=== PATIENT | female | born 1960 | race Caucasian/White ===

== ENCOUNTER 2020-06-17 14:47 | Inpatient (IN) | payer OTHER, SELFPAY ==
[2020-06-17 14:54] VITALS: BP 101/64; PULSE 63; RESP 18; TEMP 36.6; O2SAT 98; BMI 34.4
[2020-06-17 19:35] VITALS: O2SAT 95
[2020-06-17 21:27] VITALS: BP 132/76; PULSE 65
[2020-06-17] MEDS: Atorvastatin Calcium 40 MG Tablet PO (21:27)
[2020-06-17] MEDS: hydrALAZINE 10 MG Tablet PO (21:27)
[2020-06-17 22:30] VITALS: BP 132/76; PULSE 65; RESP 18; TEMP 36.6; O2SAT 97
[2020-06-18 06:24] VITALS: BP 131/75; PULSE 66
[2020-06-18] MEDS: hydrALAZINE 10 MG Tablet PO (06:24)
[2020-06-18] MEDS: Levothyroxine 112 MCG Tablet PO (06:24)
[2020-06-18] MEDS: Enoxaparin 40 MG/0.4 ML Syringe SC (06:24)
[2020-06-18 06:26] LABS: Hemoglobin 12.6 g/dL (12.0-15.0); Mean Corp Hgb Conc 32.3 g/dL (32-36); Mean Corpuscular Hgb 30.6 pg (27.0-32.0); Mean Corpuscular Volume 94.7 fL (81-99); Mean Platelet Vol. 11.5 fl (6.2-12.0); Platelet Count 216 K/mm3 (150-450); RBC Distribution Width SD 45.1 fl (35.1-43.9); Red Blood Count 4.12 M/mm3 (4.2-5.4); White Blood Count 8.5 K/mm3 (4.4-11.0)
[2020-06-18 07:04] LABS: AST(SGOT) 17 U/L (15-37); Alanine Aminotransfer ALT/SGPT 36 U/L (13-56); Albumin, Serum 3.3 g/dL (3.2-5.0); Alkaline Phosphatase 148 U/L (45-117); Anion Gap 6 (5-15); BUN 32 mg/dL (7-18); BUN/Creat Ratio 31.7 RATIO (10-20); Calcium,Total 9.1 mg/dL (8.5-10.1); Chloride 106 mmol/L (98-107); Creatinine, Serum 1.01 mg/dL (0.55-1.02); EST Glomerular Filtration Rate 59 mL/min (>60); Est Glom Filt Rate - Afr Amer 72 mL/min (>60); Globulin 3.3 g/dL (2.2-4.2); Glucose 85 mg/dL (74-106); Magnesium 1.7 mg/dL (1.6-2.6); Phosphorus 3.8 mg/dL (2.5-4.9); Potassium 3.2 mmol/L (3.5-5.1); Protein, Total 6.6 g/dL (6.4-8.2); Sodium Level 140 mmol/L (136-145)
[2020-06-18 07:38] VITALS: BP 131/75; PULSE 66; RESP 20; TEMP 36.7; O2SAT 96
[2020-06-18 07:45] VITALS: PULSE 70
[2020-06-18] MEDS: Metoprolol(XL)Succ 50 MG Tablet PO (07:45)
[2020-06-18] MEDS: amLODIPine 10 MG Tablet PO (07:45)
[2020-06-18] MEDS: Clopidogrel Bisulfate 75 MG Tablet PO (07:45)
[2020-06-18] MEDS: Aspirin 81 MG TAB.CHEW PO (07:45)
[2020-06-18] MEDS: Losartan Potassium 100 MG Tablet PO (07:45)
[2020-06-18] MEDS: hydroCHLOROthiazide 25 MG Tablet PO (07:45)
[2020-06-18 08:13] VITALS: O2SAT 96
--- NOTE | 2020-06-18 10:20 | PCM.HP.STD ---
[facility] - General General Date of Admission: 06/17/20 [facility] 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 NIH was 4. CT revealed a subacute lacunar infarct in the right centrum semiovale/periventricular white matter which is thought to be due to uncontrolled HTN. CTA showed moderate degree of calcified stenosis involving the cavernous and proximal supraclinoid portions of each internal carotid artery, greater on the right side. There was a mild degree of irregular narrowing of the M1 segment of the right middle cerebral artery without evidence of acute thromboembolic disease. TSH was 55.39 and the patient stated she had run out of her Synthroid. Transaminases and alkaline phosphatase were mildly elevated. Random blood sugar was increased at 155 but the hemoglobin A1c was 5.3. She had no PCP. She was transferred to [facility] for further care. She was diagnosed with uncontrolled hypertension and hyperlipidemia and was started on appropriate medication. She was also started on ASA and Plavix and will continue dual anti-platelet therapy for 1 month and then ASA alone thereafter. She was transferred to inpt acute rehab at [facility] on 06/17/20 for > 3 hours of therapy daily to restore function at or near her prior level of function. Medications she was supposed to be taking prior to presenting to the ED include Norvasc 10 mg daily, BuSpar 15 mg twice daily, vitamin D 50,000 units weekly, Lexapro 20 mg daily, hydrochlorothiazide 25 mg daily, Synthroid 112 mcg daily, Cozaar 100 mg daily, metoprolol 25 mg 3 times daily and potassium chloride 20 mEq daily. 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 Obesity (BMI 30.0-34.9) OCD (obsessive compulsive disorder) Smoker Home Medications acetaminophen 650 mg PO Q4H PRN 06/17/20 [History Last Taken Unknown] amlodipine 10 mg PO DAILY 06/17/20 [History Last Taken Unknown] aspirin 81 mg PO DAILY 06/17/20 [History Last Taken Unknown] atorvastatin 40 mg PO QHS 06/17/20 [History Last Taken Unknown] clopidogrel [Plavix] 75 mg PO DAILY 06/17/20 [History Last Taken Unknown] hydralazine 10 mg PO TID 06/17/20 [History Last Taken Unknown] hydrochlorothiazide 25 mg PO DAILY 06/17/20 [History Last Taken Unknown] levothyroxine 112 mcg PO DAILY 06/17/20 [History Last Taken Unknown] losartan 100 mg PO DAILY 06/17/20 [History Last Taken Unknown] metoprolol succinate 50 mg PO DAILY 06/17/20 [History Last Taken Unknown] Allergy/AdvReac Type Severity Reaction Status Date / Time No Known Allergies Allergy Verified 06/17/20 17:11 Family History (Updated 06/18/20 @ 13:[address] Leyla Rodriguez DO) Aunt Hypertension Mother Hypertension Sister Thyroid disorder Other Hyperlipidemia Surgical History H/O colonoscopy History of cholecystectomy Social History (Updated 06/18/20 @ 13:[address] Leyla Rodriguez DO) adopted: No household members: spouse housing: house number of children: 4 service: No current occupational status: unemployed current gender identity: female Smoking Status: Current every day smoker Tobacco: How many years used: 10 quit status: considering quitting counseling given: provider counseling alcohol intake: current alcohol intake frequency: 0-2 drinks per day substance use type: does not use ROS Constitutional Constitutional: Reports difficulty sleeping; Denies anorexia, headache(s), lethargy, malaise, poor appetite, snoring or stops breathing during sleep Eyes Eyes: Denies blurry vision or diplopia ENT HEENT: Reports dry mouth; Denies dysphagia, loss taste/smell or sore throat Cardiovascular Cardiovascular: Denies chest pain, chest pain at rest, chest pain with activity, claudication, cold extremities, dyspnea on exertion, edema, orthopnea, orthostatic symptoms, palpitations or pedal edema Respiratory/Chest Respiratory/Chest: Denies cough or shortness of breath with exertion Gastrointestinal Gastrointestinal: Denies chewing difficulty, dysphagia, hematochezia, nausea or vomiting Genitourinary Genitourinary: Reports dribbling; Denies dysuria or urinary hesitancy Musculoskeletal Musculoskeletal: Denies back pain, difficulty walking or extremity pain Integumentary Integumentary: Denies non-healing lesions Neurologic Neurologic: Reports focal weakness, lack of coordination and paresthesias; Denies abnormal speech, behavior changes, confusion, convulsions, disequilibrium, dizziness, frequent falls, headache(s), radicular pain, restless legs, seizure-like activity, seizures or vertigo Psychiatric Psychiatric: Reports anxiety; Denies auditory hallucinations, confusion, hallucinations or suicidal ideation Hematologic/Lymphatic Hematologic/Lymphatic: Denies easy bleeding or easy bruising Allergic/Immunologic Allergic/Immunologic: Denies lip swelling, wheezing or asthma Vital Signs Vital Signs Vital Signs: 06/17/20 14:54 06/17/20 19:35 06/17/20 21:27 Temperature 97.8 F Temperature Source Temporal Pulse Rate 63 65 Pulse Strength Respiratory Rate 18 Respiratory Effort Respiratory Depth Respiratory Pattern Blood Pressure 101/64 132/76 H Blood Pressure Mean 76 Blood Pressure Source Monitor Blood Pressure Position Sitting Blood Pressure Location Right Arm Pulse Ox 98 95 Oxygen Delivery Method Room Air Room Air 06/17/20 22:30 06/18/20 06:24 06/18/20 07:38 Temperature 98 F 98.0 F Temperature Source Temporal Temporal Pulse Rate 65 66 66 Pulse Strength Normal (2+) Respiratory Rate 18 20 H Respiratory Effort Respiratory Depth Respiratory Pattern Blood Pressure 132/76 H 131/75 H 131/75 H Blood Pressure Mean 94 93 Blood Pressure Source Monitor Blood Pressure Position Semi-Fowlers Blood Pressure Location Left Forearm Pulse Ox 97 96 Oxygen Delivery Method Room Air Room Air 06/18/20 07:45 06/18/20 08:13 06/18/20 08:49 Temperature Temperature Source Pulse Rate 70 Pulse Strength Normal (2+) Respiratory Rate Respiratory Effort Normal Non-Labored Respiratory Depth Normal Respiratory Pattern Normal Blood Pressure Blood Pressure Mean Blood Pressure Source Blood Pressure Position Blood Pressure Location Pulse Ox 96 Oxygen Delivery Method Room Air Physical Exam Const alert, oriented x3, no apparent distress, healthy appearing and well nourished General Appearance: cooperative and well developed Orientation / Consciousness: awake, oriented to person, oriented to place and oriented to time Nutritional Appearance: overweight HEENT normocephalic Head and Scalp: atraumatic Mouth: dry mucous membranes Eyes PERRL and EOMs intact bilaterally Visual Field: other Other Details: No visual field cuts Conjunctiva: conjunctiva normal Sclera: sclera normal Neck supple, thyroid normal and no carotid bruits General: trachea midline and other No cervical lymphadenopathy Chest Chest: symmetrical chest wall rise Resp normal respiratory effort, normal air movement and clear to auscultation bilaterally Effort and Inspection: Negative for tachypneic or respiratory distress Cardio regular rate, regular rhythm, S1 normal heart sound, S2 normal heart sound, no murmurs, no rub, no gallops, no clicks and no JVD Peripheral Pulses: pulses 2+ throughout GI normal to inspection, nondistended, normoactive bowel sounds, soft to palpation, non-tender and hepatosplenomegaly no CVA tenderness Extremity normal capillary refill and no clubbing, cyanosis or edema Skin no wounds and no jaundice Skin Narrative: No rashes General Skin Exam: no breakdown Neuro oriented x3 and CN's II-XII intact bilaterally Neuro Narrative: 5/5 strength throughout. She is left-handed. She has decreased fine motor coordination of the left hand. No facial droop. No ataxia. Coordination / Balance: [id number] test normal Speech: speech normal Psych mental status grossly normal, cooperative, affect normal, speech normal and activity/motor behavior normal Appearance: well kempt Attitude: calm Activity / Motor Behavior: appropriate eye contact Thought Process: normal thought process Lab / Micro Data Result Diagrams: 06/18/20 06:22 06/18/20 06:22 Labs: Laboratory Results - last 24 hr 06/18/20 06/18/20 06:22 06:22 WBC 8.5 RBC 4.12 L Hgb 12.6 Hct 39.0 MCV 94.7 MCH 30.6 MCHC 32.3 RDW Std Deviation 45.1 H RDW Coeff of Siri 13.0 Plt Count 216 MPV 11.5 Sodium 140 Potassium 3.2 L Chloride 106 Carbon Dioxide 28.0 Anion Gap 6 BUN 32 H Creatinine 1.01 Estim Creat Clear Calc 49.00 Est GFR (MDRD) Af Amer 72 Est GFR (MDRD) Non-Af 59 L BUN/Creatinine Ratio 31.7 H Glucose 85 Calcium 9.1 Phosphorus 3.8 Magnesium 1.7 Total Bilirubin 0.30 AST 17 ALT 36 Alkaline Phosphatase 148 H Total Protein 6.6 Albumin 3.3 Globulin 3.3 Albumin/Globulin Ratio 1.0 Assessment & Plan Assessment/Plan (1) HLD (hyperlipidemia): Status: Chronic Code(s): E78.5 - Hyperlipidemia, unspecified Plan: Continue statin (2) Left hemiparesis: Status: Acute Code(s): G81.94 - Hemiplegia, unspecified affecting left nondominant side Plan: PT/OT. (3) Non compliance w medication regimen: Status: Acute Code(s): Z91.14 - Patient's other noncompliance with medication regimen Plan: Reinforced the need to be compliant with medication as directed and with physician follow-up. (4) Obesity (BMI 30.0-34.9): Status: Chronic Code(s): E66.9 - Obesity, unspecified Plan: Weight loss advised. (5) Right-sided lacunar infarction: Status: Acute Code(s): I63.81 - Other cerebral infarction due to occlusion or stenosis of small artery Plan: PT/OT/ST evaluations. (6) Abnormal LFTs: Status: Acute Code(s): R94.5 - Abnormal results of liver function studies Plan: Can be followed up as an outpatient if the abnormalities persist. (7) Diuretic-induced hypokalemia: Status: Acute Code(s): E87.6 - Hypokalemia; T50.2X5A - Adverse effect of carbonic-anhydrase inhibitors, benzothiadiazides and other diuretics, initial encounter Plan: Supplement potassium. 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 Recheck TSH, T4 and T3 in 6 weeks. (9) Hypertension: Status: Chronic Code(s): I10 - Essential (primary) hypertension Plan: Discontinue hydrochlorothiazide. Mucous membranes are very dry and she relates to me that she does not drink much because she does not want to have urge urinary incontinence. BUN/creatinine ratio is very elevated at 31.7. (10) Smoker: Status: Acute Code(s): F17.200 - Nicotine dependence, unspecified, uncomplicated Plan: Smoking cessation counseling given. Patient declines a nicotine patch. She tells me that she has quit. She has quit in the past but went back to smoking due to uncontrolled anxiety. Visit Charges Inpatient E&M: 81839 Init Hosp L3
--- NOTE | 2020-06-18 11:07 | PCM.RU.PYE ---
Admission Information Primary Diagnosis:: Debility due to right side lacunar infarct on 06/06/2020 with left hemiparesis. Status Changes from Prescreening?: No changes Identified Actual Problem List:: Depression, Mobility Impaired, Self Care Deficit, Know.Dfct/Disease Process, Know.Dfct of Medicaitons, BP, Hypertension, Fluid Change-Dehydration and Alteration-Leisure Activ. Potential Problem List:: DVT, Bleeding, Infection, UTI, Aspiration, Falls, Skin Integrity and Depression Risk of Complications DVT: LMWH and PHOEBE Hose Bleeding: Monitor Lab Values, Nursing to Teach Precautions for anti-coagulation therapy., Wound, if applicable, to be assessed every shift. and Stroke patients assessed for lethargy or change in status. Infection: Clinical Staff to Monitor for S/S of infection: and S/S of infection include fever, redness, warmth, etc. Urinary Tract Infection: Monitor for frequency, burning, discomfort, or incontinence. and Nursing will obtain urine sample for urinalysis and C&S when ordered. Aspiration: Clinical staff will monitor for coughing, drooling, congestion., Speech will evaluate swallowing and dsyphasia. and Nursing will monitor patient swallowing during meals. Falls: Patient will be evaluated for Fall Precautions and Patient will be placed on Fall Precautions as indicated per protocol. Skin Breakdown: Nursing will assess skin daily using assessment tool. and Nursing will place on Skin Breakdown Precautions as indicated. Pain: Clinical staff will assess patient's pain level per protocol., Medications will be given, if needed, and the pain level reassessed. and Other methods: Massage, distraction, decrease stimulus, etc. used PRN. Plan of Care Patient requires physician specializing in physical medicine and rehab oversight to provide close medical supervision of rehab issues including: Pain Management, Sleep Problems, Bowel and Bladder, Medical and co-morbidity Management, DVT prophylaxis, Rehabilitation Leadership and Coordination of treatment team Patient needs Physical Therapy: At least 5 out of 7 days and For a minimum of 1.5 hrs Patient needs Physical Therapy to improve:: Mobility, Strengthening, Transfers, Stretching, ROM, Endurance, Stairs, Gait and Balance Patient needs Occupational Therapy: For a minimum of 1.5 hrs Patient needs Occupational Therapy to improve ADL's incl.: Eating, Grooming, Bathing, Dressing, Toileting, Toilet transfers, Community Reintegration, Higher functioning activities, Household tasks, Adaptive Equipment, Splinting and Other activities as determined Patient requires speech therapy: - (Evaluation for cognitive deficits and if no deficit will DC ST) Patient requires speech therapy for: Cognition Patient requires 24/7 Rehabilitation Nursing for: Pain Issues, Identifying and preventing risk factors, Monitoring and reporting current medical conditions, Assisting with ambulation, transfer, and all ADL's, Teaching patients about disease process and medications, Family teaching, Providing safe environment, Bowel and Bladder Issues, Skin integrity and Medication Management Patient needs Rubber Tile Floor Layer/ Case Management for: Discharge Planning, Arranging Home Equipment or Services and Family Interventions Patient needs Dietary and Nutrition Services for: Adequate Nutrition, Nutritional Supplements and Nutritional Education Goals Patient will remain: free from falls and or injury at time of discharge. Patient will perform bed mobility at: MOD I level of assist. Patient will complete transfers from bed to chair at: MOD I level of assist. Patient will ambulate: 100 feet and with LRD Patient will complete upper body dressing at: MOD I level of assist. Patient will complete lower body dressing at: MOD I level of assist. Patient will complete toileting at: MOD I level of assist. Patient will perform bathing at: MOD I level of assist. Patient will complete grooming at: MOD I level of assist. Patient will complete home management skills at: MOD I level of assist. Patient will achieve: - (2 stairs) Patient will have pain level of: of 3 or less Patient's skin will: remain intact Patient will receive: adequate nutrition. Discharge Planning Pt Prognosis for Sig. Practical Improv. w/in Reasonable Time: Good Estimated Length of stay (days): 14 Anticipated D/C Destination: Home with Outpt Therapy Was Preadmission Assessment Accurate?: Yes
[2020-06-18] MEDS: Potassium Chloride Oral Tablet 20 MEQ 40 MEQ PO (11:47)
[2020-06-18] MEDS: Magnesium Chloride 64 MG Delay Rel.Tablet 128 MG PO (14:07)
[2020-06-18 19:32] VITALS: BP 122/72; PULSE 60; RESP 18; TEMP 36.9; O2SAT 98
[2020-06-18] MEDS: Atorvastatin Calcium 40 MG Tablet PO (21:09)
[2020-06-19] MEDS: Levothyroxine 112 MCG Tablet PO (06:30)
[2020-06-19] MEDS: Enoxaparin 40 MG/0.4 ML Syringe SC (06:30)
[2020-06-19] MEDS: Potassium Chloride Oral Tablet 20 MEQ PO (07:26)
[2020-06-19] MEDS: Aspirin 81 MG TAB.CHEW PO (07:26)
[2020-06-19] MEDS: Clopidogrel Bisulfate 75 MG Tablet PO (07:27)
[2020-06-19] MEDS: Magnesium Chloride 64 MG Delay Rel.Tablet 128 MG PO (07:27)
[2020-06-19] MEDS: Losartan Potassium 100 MG Tablet PO (07:27)
[2020-06-19 07:29] VITALS: PULSE 72
[2020-06-19] MEDS: NIFEdipine 60 MG Tablet PO (07:29)
[2020-06-19] MEDS: Metoprolol(XL)Succ 50 MG Tablet PO (07:29)
[2020-06-19 07:59] VITALS: BP 117/66; PULSE 57; RESP 18; TEMP 36.7; O2SAT 97
--- NOTE | 2020-06-19 11:52 | CASEMGMT ---
Addendum entered by Ronit Chaney 06/19/20 13:02: PHQ-9 completed. Pt scored 08/13. Indicates no depression. Updated DrFroy Original Note: Social Work Met with patient for initial assessment. Discussed code status. Pt confirmed full code. Pt denied wanting to complete advanced directives. Explained [employer] insurance with [employer] 06/26 and continued stay is not guaranteed. The goal is for pt to return home with with 3 steps to enter. However, works during the week and would not be able to assist pt . 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 Will Team . SW to continue to follow. Ronit Chaney, [employer] TECHNICIAN
--- NOTE | 2020-06-19 11:53 | PN_ITS ---
Subjective Subjective: Afebrile VSS-blood pressure is well controlled. She denies lightheadedness. Heart rate ranges from 57-72. Maintaining appropriate oxygen saturation on RA Fluid intake is poor Discussed with nursing - no problems that need addressed Reviewed the PT/OT/ST notes: she was not picked up by ST Medication list reviewed. Sleeping well. Denies chest pain, shortness of breath, palpitations, nausea/vomiting, abdominal pain, burning with urination, lightheadedness. Objective Data Objective Data Vital Signs: Vital Signs Temp Pulse Resp BP Pulse Ox 98.0 F 57 L 18 117/66 97 06/19/20 07:59 06/19/20 07:59 06/19/20 07:59 06/19/20 07:59 06/19/20 07:59 Oxygen Flow Rate (L/min) 98 Oxygen Delivery Method Room Air Weight: 194 lb 6.4 oz Body Mass Index (BMI) 34.4 Intake & Output: Intake and Output for Last 24 Hours 06/17/20 06/18/20 06/19/20 23:59 23:59 23:59 Intake Total 720 / 720 360 / 360 Output Total 650 / 650 Balance 70 / 70 360 / 360 Lab / Micro Data Result Diagrams: 06/18/20 06:22 06/18/20 06:22 Physical Exam Const alert, oriented x3 and no apparent distress Constitutional Narrative: Making good eye contact, appropriate General Appearance: cooperative and comfortable Orientation / Consciousness: awake, oriented to person, oriented to place and oriented to time Nutritional Appearance: overweight HEENT normocephalic Mouth: dry mucous membranes Eyes PERRL and EOMs intact bilaterally Visual Field: other Other Details: No visual field cuts Conjunctiva: conjunctiva normal Sclera: sclera normal Neck no lymphadenopathy, supple, no JVD and no carotid bruits General: trachea midline and other No cervical lymphadenopathy Chest Chest: symmetrical chest wall rise Resp normal respiratory effort, no use of accessory muscles and clear to auscultation bilaterally Resp Narrative: Not tachypneic and no conversational dyspnea. Effort and Inspection: Negative for tachypneic, respiratory distress, labored or uses accessory muscles Cardio regular rate, regular rhythm, S1 normal heart sound, S2 normal heart sound, no murmurs, no rub and no gallops Peripheral Pulses: pulses 2+ throughout GI normal to inspection, nondistended, normoactive bowel sounds and non-tender GI Narrative: No guarding with palpation. no CVA tenderness Extremity normal capillary refill and no clubbing, cyanosis or edema Extremity Narrative: Negative Anjum's and Tanner's signs Skin no wounds and no jaundice Skin Narrative: No rashes, no skin breakdown. General Skin Exam: no breakdown Rashes: no rashes Neuro oriented x3, CN's II-XII intact bilaterally and no sensory deficits noted Neuro Narrative: Decreased fine motor coordination in the LUE Coordination / Balance: [id number] test normal and [id number] test normal Speech: speech normal Motor Exam: strength 5/5 throughout Psych affect normal Psych Narrative: Appropriate, making good eye contact. Able to stay on topic and focus. No flight of ideas. Does not appear anxious or depressed. Conversa nt and relating well to staff. She is not restless and does not have pressured speech. No restlessness. smiling. Appearance: appropriate Attitude: calm Activity / Motor Behavior: appropriate eye contact Mood & Affect: Negative for depressed or anxious Thought Process: normal thought process Assessment & Plan Assessment/Plan (1) Left hemiparesis: Status: Acute Code(s): G81.94 - Hemiplegia, unspecified affecting left nondominant side Plan: PT/OT. (2) Right-sided lacunar infarction: Status: Acute Code(s): I63.81 - Other cerebral infarction due to occlusion or stenosis of small artery Plan: PT/OT/ST evaluations. (3) Non compliance w medication regimen: Status: Acute Code(s): Z91.14 - Patient's other noncompliance with medication regimen Plan: Reinforced the need to be compliant with medication as directed and with physician follow-up. (4) HLD (hyperlipidemia): Status: Chronic Code(s): E78.5 - Hyperlipidemia, unspecified Qualifiers: Hyperlipidemia type: unspecified Qualified Code(s): E78.5 - Hyperlipidemia, unspecified Plan: Continue statin (5) Obesity (BMI 30.0-34.9): Status: Chronic Code(s): E66.9 - Obesity, unspecified Plan: Weight loss advised. She has seen the assistant professor of history. Increased Aerobic exercise was recommended to help with weight loss and to help increase the HDL. (6) Abnormal LFTs: Status: Acute Code(s): R94.5 - Abnormal results of liver function studies Plan: Can be followed up as an outpatient if the abnormalities persist. The transaminases were better on 06/18/20 however the AP remains mildly increased. Recheck as an OP. (7) Diuretic-induced hypokalemia: Status: Acute Code(s): E87.6 - Hypokalemia; T50.2X5A - Adverse effect of carbonic-anhydrase inhibitors, benzothiadiazides and other diuretics, initial encounter Plan: Potassium was supplemented and recheck lab was ordered for 06/22/2020. 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 Recheck TSH, T4 and T3 in 6 weeks. (9) Hypertension: Status: Chronic Code(s): I10 - Essential (primary) hypertension Qualifiers: Hypertension type: essential hypertension Qualified Code(s): I10 - Essential (primary) hypertension Plan: Discontinue HCTZ. she has very poor oral fluid intake and I think this will cause more harm than good. If we can not control the BP with other antihyperten sives then will consider restarting the HCTZ at 12.5 mg daily. Mucous membranes are very dry and she relates to me that she does not drink much because she does not want to have urge urinary incontinence. BUN/creatinine ratio is very elevated at 31.7. The BP this morning is 117/66. (10) Smoker: Status: Acute Code(s): F17.200 - Nicotine dependence, unspecified, uncomplicated Plan: Smoking cessation counseling given. Patient declines a nicotine patch. She tells me that she has quit. She has quit in the past but went back to smoking due to uncontrolled anxiety. I told her that if she finds herself having cravings for cigarettes there is a smoking cessation program at the hospital and all she has to do is calling and ask for the smoking cessation director. Visit Charges Inpatient E&M: 29782 Subs Hosp L2
[2020-06-19 19:08] VITALS: BP 126/58; PULSE 58; RESP 16; TEMP 36.5; O2SAT 98
[2020-06-19] MEDS: Atorvastatin Calcium 40 MG Tablet PO (20:24)
[2020-06-19 20:25] VITALS: PULSE 57; RESP 16; O2SAT 98
[2020-06-19 20:45] VITALS: BMI 34.4
[2020-06-20] MEDS: Levothyroxine 112 MCG Tablet PO (04:58)
[2020-06-20] MEDS: Enoxaparin 40 MG/0.4 ML Syringe SC (04:58)
[2020-06-20 08:36] VITALS: BP 113/62; PULSE 64; RESP 16; TEMP 36.8; O2SAT 98
[2020-06-20] MEDS: NIFEdipine 60 MG Tablet PO (08:40)
[2020-06-20] MEDS: Magnesium Chloride 64 MG Delay Rel.Tablet 128 MG PO (08:40)
[2020-06-20] MEDS: Clopidogrel Bisulfate 75 MG Tablet PO (08:40)
[2020-06-20] MEDS: Losartan Potassium 100 MG Tablet PO (08:40)
[2020-06-20 08:41] VITALS: BP 113/62; PULSE 64
[2020-06-20] MEDS: Metoprolol(XL)Succ 50 MG Tablet PO (08:41)
[2020-06-20] MEDS: Aspirin 81 MG TAB.CHEW PO (08:41)
[2020-06-20] MEDS: Potassium Chloride Oral Tablet 20 MEQ PO (08:41)
[2020-06-20 10:07] VITALS: BMI 34.4
--- NOTE | 2020-06-20 18:50 | PN.TCU_ITS ---
Subjective Subjective: Resident seen and examined. She had a good night, no new problems, concerns, issues, complaints. Objective Data Objective Data Vital Signs: Vital Signs Temp Pulse Resp BP Pulse Ox 98.3 F 64 16 113/62 98 06/20/20 08:36 06/20/20 08:41 06/20/20 08:36 06/20/20 08:41 06/20/20 08:36 Oxygen Flow Rate (L/min) 98 Oxygen Delivery Method Room Air Weight: 88.178 kg Body Mass Index (BMI) 34.4 Intake & Output: Intake and Output for Last 24 Hours 06/18/20 06/19/20 06/20/20 23:59 23:59 23:59 Intake Total 720 / 720 1560 / 1560 1240 / 1240 Output Total 650 / 650 Balance 70 / 70 1560 / 1560 1240 / 1240 Lab / Micro Data Result Diagrams: 06/18/20 06:22 06/18/20 06:22 Physical Exam Const alert and oriented x3 General Appearance: cooperative HEENT normocephalic Eyes PERRL and EOMs intact bilaterally Neck supple, no JVD and no carotid bruits Resp normal respiratory effort, normal air movement and clear to auscultation bilaterally Cardio regular rate and regular rhythm GI normal to inspection, nondistended, normoactive bowel sounds, non-tender and non-distended Extremity normal capillary refill General Extremity: Negative for edema Skin no rashes or lesions noted General Skin Exam: no breakdown Neuro Neuro Narrative: Left hemiparesis. Psych affect normal Appearance: appropriate Assessment & Plan Assessment/Plan (1) Debility: Status: Acute Code(s): R53.81 - Other malaise (2) Stroke: Status: Acute Code(s): I63.9 - Cerebral infarction, unspecified (3) Hypertension: Status: Chronic Code(s): I10 - Essential (primary) hypertension (4) Hyperlipidemia: Status: Acute Code(s): E78.5 - Hyperlipidemia, unspecified (5) Hypothyroidism: Status: Acute Code(s): E03.9 - Hypothyroidism, unspecified (6) Hypokalemia: Status: Acute Code(s): E87.6 - Hypokalemia Plan: 60 year old female with below past medical history hospitalized for stroke, admitted to for > 3 hours daily rehabilitation, strengthening, prior to discharge home. * Debility - PT/OT. * Cognition - ST. * Pain - Tylenol 650MG Q4H PRN. * Bowel - Senna/colace 2 tablets BID PRN, MOM 30ML daily PRN, Dulcolax 10MG MN daily PRN. * DVT prophylaxis - Lovenox 40MG SC daily. * Stroke - Aspirin 81MG daily, Plavix 75MG daily x 28 doses. * Hyperlipidemia - Atorvastatin 40MG QHS. * Hypothyroidism - Levothyroxine 112MCG daily. * Hypertension - Metoprolol succinate 50MG daily, Nifedipine 60MG daily, Losarta n 100MG daily. * Hypothyroidism - Levothyroxine 112MCG daily. * Hypomagnesemia - Magnesium 128mg daily. * Hypokalemia - KCL 20MEQ daily, follow BMP. Capacity Capacity Assessment Tool Can the patient make a choice & communicate that choice?: Yes Can the patient understand benefits, risks and alternatives?: Yes Can the patient make a logical, rational choice?: Yes Is the choice the patient makes consistent w/ their values?: Yes Is there an impending, emergent risk to the patient?: No Does the patient have an Advance Directive?: No Is there a Surrogate Available?: Yes i.e. HCPOA: Yes i.e. close relative (spouse, child, parent, sibling)?: Yes
[2020-06-20 19:29] VITALS: BP 115/61; PULSE 61; RESP 16; TEMP 36.8; O2SAT 96
[2020-06-20 21:12] VITALS: BMI 34.4
[2020-06-20 22:00] VITALS: PULSE 61; RESP 16; O2SAT 96
[2020-06-20] MEDS: Atorvastatin Calcium 40 MG Tablet PO (22:15)
[2020-06-21] MEDS: Levothyroxine 112 MCG Tablet PO (05:55)
[2020-06-21] MEDS: Enoxaparin 40 MG/0.4 ML Syringe SC (05:55)
[2020-06-21] MEDS: Aspirin 81 MG TAB.CHEW PO (08:01)
[2020-06-21] MEDS: Potassium Chloride Oral Tablet 20 MEQ PO (08:02)
[2020-06-21] MEDS: Losartan Potassium 100 MG Tablet PO (08:02)
[2020-06-21] MEDS: Magnesium Chloride 64 MG Delay Rel.Tablet 128 MG PO (08:02)
[2020-06-21 08:03] VITALS: PULSE 64
[2020-06-21] MEDS: Clopidogrel Bisulfate 75 MG Tablet PO (08:03)
[2020-06-21] MEDS: Metoprolol(XL)Succ 50 MG Tablet PO (08:03)
[2020-06-21] MEDS: NIFEdipine 60 MG Tablet PO (08:03)
[2020-06-21 08:36] VITALS: BP 126/70; PULSE 64; RESP 16; TEMP 36.6; O2SAT 98
[2020-06-21 11:17] VITALS: BMI 34.4
--- NOTE | 2020-06-21 18:52 | PN.TCU_ITS ---
Subjective Subjective: Patient seen and examined. Progressing with therapy, slept well, no pain. No new problems, concerns, issues, complaints. Objective Data Objective Data Vital Signs: Vital Signs Temp Pulse Resp BP Pulse Ox 97.8 F 64 16 126/70 H 98 06/21/20 08:36 06/21/20 08:36 06/21/20 08:36 06/21/20 08:36 06/21/20 08:36 Oxygen Flow Rate (L/min) 98 Oxygen Delivery Method Room Air Weight: 89.5 kg Body Mass Index (BMI) 34.4 Intake & Output: Intake and Output for Last 24 Hours 06/19/20 06/20/20 06/21/20 23:59 23:59 23:59 Intake Total 1560 / 1560 1360 / 1360 1120 / 1120 Output Total 550 / 550 Balance 1560 / 1560 1360 / 1360 570 / 570 Lab / Micro Data Result Diagrams: 06/18/20 06:22 06/18/20 06:22 Physical Exam Const alert and oriented x3 General Appearance: cooperative HEENT normocephalic Eyes PERRL and EOMs intact bilaterally Neck supple, no JVD and no carotid bruits Resp normal respiratory effort, normal air movement and clear to auscultation bilaterally Cardio regular rate and regular rhythm GI normal to inspection, nondistended, normoactive bowel sounds, non-tender and non-distended Extremity normal capillary refill General Extremity: Negative for edema Skin no rashes or lesions noted General Skin Exam: no breakdown Neuro Neuro Narrative: Left hemiparesis. Psych affect normal Appearance: appropriate Assessment & Plan Assessment/Plan (1) Debility: (2) Stroke: (3) Hypertension: (4) Hyperlipidemia: (5) Hypothyroidism: (6) Hypokalemia: PLAN: 60 year old female with below past medical history hospitalized for stroke, admitted to for > 3 hours daily rehabilitation, strengthening, prior to discharge home. * Debility - PT/OT. * Cognition - ST. * Pain - Tylenol 650MG Q4H PRN. * Bowel - Senna/colace 2 tablets BID PRN, MOM 30ML daily PRN, Dulcolax 10MG AL daily PRN. * DVT prophylaxis - Lovenox 40MG SC daily. * Stroke - Aspirin 81MG daily, Plavix 75MG daily x 28 doses. * Hyperlipidemia - Atorvastatin 40MG QHS. * Hypothyroidism - Levothyroxine 112MCG daily. * Hypertension - Metoprolol succinate 50MG daily, Nifedipine 60MG daily, Losartan 100MG daily. * Hypothyroidism - Levothyroxine 112MCG daily. * Hypomagnesemia - Magnesium 128mg daily. * Hypokalemia - KCL 20MEQ daily, follow BMP. Capacity Capacity Assessment Tool Can the patient make a choice & communicate that choice?: Yes Can the patient understand benefits, risks and alternatives?: Yes Can the patient make a logical, rational choice?: Yes Is the choice the patient makes consistent w/ their values?: Yes Is there an impending, emergent risk to the patient?: No Does the patient have an Advance Directive?: No Is there a Surrogate Available?: Yes i.e. HCPOA: Yes i.e. close relative (spouse, child, parent, sibling)?: Yes
[2020-06-21 20:00] VITALS: BMI 34.4
[2020-06-21] MEDS: Atorvastatin Calcium 40 MG Tablet PO (20:32)
[2020-06-21 22:00] VITALS: BP 113/63; PULSE 63; RESP 16; TEMP 36.7; O2SAT 95
[2020-06-22] MEDS: Levothyroxine 112 MCG Tablet PO (05:29)
[2020-06-22] MEDS: Enoxaparin 40 MG/0.4 ML Syringe SC (05:29)
[2020-06-22 06:00] VITALS: BP 135/75; PULSE 67; RESP 18; TEMP 36.5; O2SAT 97
[2020-06-22 06:20] LABS: Anion Gap 3 (5-15); BUN 29 mg/dL (7-18); BUN/Creat Ratio 40.8 RATIO (10-20); Calcium,Total 8.8 mg/dL (8.5-10.1); Chloride 114 mmol/L (98-107); Creatinine, Serum 0.71 mg/dL (0.55-1.02); EST Glomerular Filtration Rate 89 mL/min (>60); Est Glom Filt Rate - Afr Amer 108 mL/min (>60); Glucose 84 mg/dL (74-106); Magnesium 2.1 mg/dL (1.6-2.6); Potassium 4.1 mmol/L (3.5-5.1); Sodium Level 143 mmol/L (136-145)
[2020-06-22 09:15] VITALS: BMI 34.4
[2020-06-22 09:22] VITALS: PULSE 67
[2020-06-22] MEDS: Magnesium Chloride 64 MG Delay Rel.Tablet 128 MG PO (09:22)
[2020-06-22] MEDS: Clopidogrel Bisulfate 75 MG Tablet PO (09:22)
[2020-06-22] MEDS: Potassium Chloride Oral Tablet 20 MEQ PO (09:22)
[2020-06-22] MEDS: Metoprolol(XL)Succ 50 MG Tablet PO (09:22)
[2020-06-22] MEDS: Aspirin 81 MG TAB.CHEW PO (09:22)
[2020-06-22] MEDS: Losartan Potassium 100 MG Tablet PO (09:22)
[2020-06-22] MEDS: NIFEdipine 60 MG Tablet PO (09:22)
--- NOTE | 2020-06-22 09:30 | NURSING ---
see therapy notes for functional abilities
--- NOTE | 2020-06-22 16:14 | CASEMGMT ---
Social Work IDT met with patient and for Team meeting. Discussed patient's progress in therapy and nursing. Pt working on progressing to walking with cane or no AD, however, still working on functionality of walking safely, left foot drags. Pt also working on left arm/hand ROM and coordination which is a barrier as pt is left hand dominant. Pt is SBA with ADLs but requires extra time. IDT recommending continued therapy to work toward PLOF. Goal is for pt to DC home with , however, works long hours and pt will be home alone. Explained [employer] insurance with [employer] 06/26 and continued stay is not guaranteed. Both expressed understanding. SW to continue to follow for DC planning. Ronit Chaney, [employer] FIN[employer]CIAL PLANNING CONSULTANT
--- NOTE | 2020-06-22 19:27 | PN.TCU_ITS ---
Subjective Subjective: Patient seen, examined on IDT rounds today. Her Amado present. She is making good progress, She is ready to transition from walker to cane. Her left upper extremity weakness, and left hand dragger strength has improved. Amado works, but daughters can help care for Isabelle at home. Objective Data Objective Data Vital Signs: Vital Signs Temp Pulse Resp BP Pulse Ox 97.7 F L 67 18 135/75 H 97 06/22/20 06:00 06/22/20 09:22 06/22/20 06:00 06/22/20 06:00 06/22/20 06:00 Oxygen Flow Rate (L/min) 98 Oxygen Delivery Method Room Air Weight: 89.5 kg Body Mass Index (BMI) 34.4 Intake & Output: Intake and Output for Last 24 Hours 06/20/20 06/21/20 06/22/20 23:59 23:59 23:59 Intake Total 1360 / 1360 1360 / 1360 840 / 840 Output Total 550 / 550 150 / 150 Balance 1360 / 1360 810 / 810 690 / 690 Lab / Micro Data Result Diagrams: 06/18/20 06:22 06/22/20 05:10 Labs: Laboratory Results - last 24 hr 06/22/20 05:10 Sodium 143 Potassium 4.1 Chloride 114 H Carbon Dioxide 26.0 Anion Gap 3 L BUN 29 H Creatinine 0.71 Estim Creat Clear Calc 69.70 Est GFR (MDRD) Af Amer 108 Est GFR (MDRD) Non-Af 89 BUN/Creatinine Ratio 40.8 H Glucose 84 Calcium 8.8 Magnesium 2.1 Physical Exam Const alert and oriented x3 General Appearance: cooperative HEENT normocephalic Eyes PERRL and EOMs intact bilaterally Neck supple, no JVD and no carotid bruits Resp normal respiratory effort, normal air movement and clear to auscultation bilaterally Cardio regular rate and regular rhythm GI normal to inspection, nondistended, normoactive bowel sounds, non-tender and non-distended Extremity normal capillary refill General Extremity: Negative for edema Skin no rashes or lesions noted General Skin Exam: no breakdown Neuro Neuro Narrative: Left hemiparesis. Psych affect normal Appearance: appropriate Assessment & Plan Assessment/Plan (1) Debility: (2) Stroke: (3) Hypertension: (4) Hyperlipidemia: (5) Hypothyroidism: (6) Hypokalemia: PLAN: 60 year old female with below past medical history hospitalized for stroke, admitted to for > 3 hours daily rehabilitation, strengthening, prior to discharge home. * Debility - PT/OT. * Cognition - ST. * Pain - Tylenol 650MG Q4H PRN. * Bowel - Senna/colace 2 tablets BID PRN, MOM 30ML daily PRN, Dulcolax 10MG AL daily PRN. * DVT prophylaxis - Lovenox 40MG SC daily. * Stroke - Aspirin 81MG daily, Plavix 75MG daily x 28 doses. * Hyperlipidemia - Atorvastatin 40MG QHS. * Hypothyroidism - Levothyroxine 112MCG daily. * Hypertension - Metoprolol succinate 50MG daily, Nifedipine 60MG daily, Losartan 100MG daily. * Hypothyroidism - Levothyroxine 112MCG daily. * Hypomagnesemia - Magnesium 128mg daily. * Hypokalemia - KCL 20MEQ daily, follow BMP. Capacity Capacity Assessment Tool Can the patient make a choice & communicate that choice?: Yes Can the patient understand benefits, risks and alternatives?: Yes Can the patient make a logical, rational choice?: Yes Is the choice the patient makes consistent w/ their values?: Yes Is there an impending, emergent risk to the patient?: No Does the patient have an Advance Directive?: No Is there a Surrogate Available?: Yes i.e. HCPOA: Yes i.e. close relative (spouse, child, parent, sibling)?: Yes
[2020-06-22 19:49] VITALS: BP 107/64; PULSE 66; RESP 16; TEMP 36.1; O2SAT 100
[2020-06-22] MEDS: Atorvastatin Calcium 40 MG Tablet PO (20:43)
[2020-06-23] MEDS: Levothyroxine 112 MCG Tablet PO (04:48)
[2020-06-23] MEDS: Enoxaparin 40 MG/0.4 ML Syringe SC (04:48)
[2020-06-23 07:44] VITALS: BP 148/71; PULSE 72
[2020-06-23] MEDS: Potassium Chloride Oral Tablet 20 MEQ PO (07:44)
[2020-06-23] MEDS: Metoprolol(XL)Succ 50 MG Tablet PO (07:44)
[2020-06-23] MEDS: NIFEdipine 60 MG Tablet PO (07:44)
[2020-06-23] MEDS: Aspirin 81 MG TAB.CHEW PO (07:44)
[2020-06-23] MEDS: Losartan Potassium 100 MG Tablet PO (07:44)
[2020-06-23] MEDS: Clopidogrel Bisulfate 75 MG Tablet PO (07:44)
[2020-06-23 08:03] VITALS: BP 148/71; PULSE 72; RESP 12; TEMP 37.1; O2SAT 98
--- NOTE | 2020-06-23 09:43 | NURSING ---
pt's calls into [facility] this am and states that pt has complained of being depressed to him. pts and daughters wanting to remove pt from [facility] and continue with outpatient therapy at home. This RN tells that the CODING AUDITOR could be more help to him then this RN. This RN transfers phone call to CODING AUDITOR.
--- NOTE | 2020-06-23 13:49 | DS.PCM_ITS ---
Providers Date of Admission: 06/17/20 Primary Care Physician: Sharath Knox MD. Reason For Visit: STROKE Diagnosis Discharge Diagnosis (1) Debility: Status: Acute Code(s): R53.81 - Other malaise (2) Stroke: Status: Acute Code(s): I63.9 - Cerebral infarction, unspecified (3) Hypertension: Status: Chronic Code(s): I10 - Essential (primary) hypertension (4) Hyperlipidemia: Status: Acute Code(s): E78.5 - Hyperlipidemia, unspecified (5) Hypothyroidism: Status: Acute Code(s): E03.9 - Hypothyroidism, unspecified (6) Hypokalemia: Status: Acute Code(s): E87.6 - Hypokalemia Medications at Discharge Home Medications aspirin 81 mg PO DAILY 06/17/20 levothyroxine 112 mcg PO DAILY 06/17/20 losartan 100 mg PO DAILY 06/17/20 acetaminophen [Tylenol] 650 mg PO Q4H PRN PRN #120 tab 06/23/20 aspirin 81 mg PO DAILY@0800 #30 tab 06/23/20 atorvastatin 40 mg PO QHS 30 Days #30 tab 06/23/20 clopidogrel 75 mg PO DAILY 30 Days #30 tab 06/23/20 levothyroxine 112 mcg PO DAILY@0600 30 Days #30 tab 06/23/20 losartan 100 mg PO DAILY 30 Days #30 tab 06/23/20 metoprolol succinate 50 mg PO DAILY 30 Days #30 tab 06/23/20 nifedipine 60 mg PO DAILY 30 Days #30 tab 06/23/20 potassium chloride [Klor-Con M20] 20 meq PO DAILYCM 30 Days #30 tab 06/23/20 Hospital Course Operations None Procedures None Summary of Care Provided Minutes Spent on Discharge: 35 Hospital Course: 60 year old female with below past medical history hospitalized for stroke, admitted to for rehabilitation, strengthening, prior to discharge home with . Discharge home with , [facility] PT/OT/STfuad. Physical Exam Const alert and oriented x3 General Appearance: cooperative HEENT normocephalic Eyes PERRL and EOMs intact bilaterally Neck supple, no JVD and no carotid bruits Resp normal respiratory effort, normal air movement and clear to auscultation bilaterally Cardio regular rate and regular rhythm GI normal to inspection, nondistended, normoactive bowel sounds, non-tender and non-distended Extremity normal capillary refill General Extremity: Negative for edema Skin no rashes or lesions noted General Skin Exam: no breakdown Neuro Neuro Narrative: Left hemiparesis. Psych affect normal Appearance: appropriate ABG / Lab / Microbiology Data Result Diagrams: 06/18/20 06:22 06/22/20 05:10 D/C Instructions Discharge Diet: No restrictions Discharge Activity: Return to Normal Activity, May Shower and May Take a Tub Bath May resume sexual activity in: No Restrictions Weight Bearing Status: Weight bearing as tolerated Call your doctor if you observe: Fever of 101 or Higher, Inability to urinate, Shortness of breath, Chest pain, Calf discomfort and Uncontrolled pain Additional Instructions: Discharge home with , [facility] PT/OT/ST, cane. Please Follow Up With: Alek Knox Chi, MD When: 1 week. Meaningful Use Info Meaningful Use Diagnoses (Choose all that apply): Ischemic CVA CVA Therapy Assessed for PT,OT and/or ST?: Yes Ischemic Stroke Antithrombotic order at d/c?: Yes Dx of Atrial fib/flutter?: No Statins at discharge?: Yes Primary Dx Acute Ischemic CVA?: Yes IV tPA ordered during stay?: No Reason IV t-PA not ordered: Treatment not Indicated Discharge Plan Admission Admit Date/Time: 06/17/20 14:47 Primary Reason for Your Visit: Stroke Attending Provider: Leyla Rodriguez Primary Care Provider: Care Physician,No Primary Instructions Additional Instructions / Restrictions: Discharge home with , [facility] PT/OT/ST, cane. Discharge Orders/Prescriptions Prescriptions: New atorvastatin 40 mg Tablet 40 mg PO QHS 30 Days Qty: 30 RF: 0 acetaminophen [Tylenol] 325 mg Tablet 650 mg PO Q4H PRN PRN (Reason: Pain Score 1-10) Qty: 120 RF: 0 metoprolol succinate 50 mg Tablet Extended Release 24 Hr 50 mg PO DAILY 30 Days Qty: 30 RF: 0 clopidogrel 75 mg Tablet 75 mg PO DAILY 30 Days Qty: 30 RF: 0 potassium chloride [Klor-Con M20] 20 mEq Tablet,Er Particles/Crystals 20 meq PO DAILYCM 30 Days Qty: 30 RF: 0 nifedipine 60 mg Tablet Extended Release 24hr 60 mg PO DAILY 30 Days Qty: 30 RF: 0 aspirin 81 mg Tablet,Chewable 81 mg PO DAILY@0800 Qty: 30 RF: 0 losartan 100 mg Tablet 100 mg PO DAILY 30 Days Qty: 30 RF: 0 levothyroxine 112 mcg Tablet 112 mcg PO DAILY@0600 30 Days Qty: 30 RF: 0 Continued aspirin 81 mg Tablet 81 mg PO DAILY RF: 0 losartan 100 mg Tablet 100 mg PO DAILY RF: 0 levothyroxine 112 mcg Tablet 112 mcg PO DAILY RF: 0 Discontinued atorvastatin 40 mg Tablet 40 mg PO QHS RF: 0 hydralazine 10 mg Tablet 10 mg PO TID RF: 0 metoprolol succinate 50 mg Tablet Extended Release 24 Hr 50 mg PO DAILY RF: 0 clopidogrel [Plavix] 75 mg Tablet 75 mg PO DAILY RF: 0 acetaminophen 650 mg Tablet 650 mg PO Q4H PRN (Reason: Pain, Mild) RF: 0 amlodipine 10 mg Tablet 10 mg PO DAILY RF: 0 hydrochlorothiazide 25 mg Tablet 25 mg PO DAILY RF: 0 Referrals / Follow Up: Alek Knox Chi, MD [COURTESY STAFF PHYSICIAN] - In 1 Week Disposition Disposition (needs filled in before D/C Order can be placed): Home, self care
--- NOTE | 2020-06-23 13:59 | CASEMGMT ---
Social Work contacted this worker to discuss pt discharging as she missing home and feeling depressed. SW assured will visit. Explained the benefit of remaining to continue with intensive therapy which will significantly decrease once discharged. Validated importance of mental health as well. expressed understanding and would do whatever pt wishes. Spoke with pt. Held conversation on how she is doing. Pt expressed missing home, family and pets,and unable to see family often due to visitation restrictions. Validated feelings. Reexplained the decline in mood from strokes, reoffered medication - pt still denied, explained benefit of therapy here vs DC. Pt expressed understanding and states she will keep doing her exercises at home. Pt requesting to DC 06/25. Spoke with Dr - Dr. seymour. SW coordinated DC for 06/25 per pt wishes. Pt prefers [facility] and requesting cane and tub bench. Referral made to [facility] PT/OT/ST. Referral made to [facility] for cane and tub bench. Spoke with and updated to DC date, [facility] will call with insurance coverage of items and when ready to pickup, [facility] will call to schedule and insurance coverage. appreciative. Inquired about PCP. Pt does not have PCP since old PCP retired in February. Offered to provide PCP list. Pt and agreeable to Dr. Knox. Notified Dr. Knox. to transport pt. Plan: DC home with 06/25, [facility] PT/OT/ST, [facility] - cane, tub bench ANDREE ArringtonW
[2020-06-23 15:35] VITALS: BMI 34.4
[2020-06-23 20:00] VITALS: BP 132/66; PULSE 66; RESP 126; TEMP 36.6; O2SAT 98
[2020-06-23] MEDS: Atorvastatin Calcium 40 MG Tablet PO (21:08)
[2020-06-23 23:28] VITALS: BMI 34.4
[2020-06-24] MEDS: Enoxaparin 40 MG/0.4 ML Syringe SC (05:42)
[2020-06-24] MEDS: Levothyroxine 112 MCG Tablet PO (05:42)
[2020-06-24 08:03] VITALS: PULSE 70
[2020-06-24] MEDS: Metoprolol(XL)Succ 50 MG Tablet PO (08:03)
[2020-06-24] MEDS: Potassium Chloride Oral Tablet 20 MEQ PO (08:03)
[2020-06-24] MEDS: Clopidogrel Bisulfate 75 MG Tablet PO (08:03)
[2020-06-24] MEDS: Aspirin 81 MG TAB.CHEW PO (08:03)
[2020-06-24] MEDS: Losartan Potassium 100 MG Tablet PO (08:04)
[2020-06-24] MEDS: NIFEdipine 60 MG Tablet PO (08:07)
[2020-06-24 10:00] VITALS: BP 147/81; PULSE 67; RESP 18; TEMP 36.6; O2SAT 97
[2020-06-24 15:29] VITALS: BMI 34.4
[2020-06-24 19:54] VITALS: BP 115/55; PULSE 70; RESP 16; TEMP 37; O2SAT 97
[2020-06-24] MEDS: Atorvastatin Calcium 40 MG Tablet PO (21:12)
[2020-06-24 21:15] VITALS: BMI 34.4
[2020-06-25] MEDS: Enoxaparin 40 MG/0.4 ML Syringe SC (06:32)
[2020-06-25] MEDS: Levothyroxine 112 MCG Tablet PO (06:33)
[2020-06-25 07:37] VITALS: PULSE 78
[2020-06-25] MEDS: Clopidogrel Bisulfate 75 MG Tablet PO (07:37)
[2020-06-25] MEDS: Aspirin 81 MG TAB.CHEW PO (07:37)
[2020-06-25] MEDS: Metoprolol(XL)Succ 50 MG Tablet PO (07:37)
[2020-06-25] MEDS: Losartan Potassium 100 MG Tablet PO (07:37)
[2020-06-25] MEDS: Potassium Chloride Oral Tablet 20 MEQ PO (07:37)
[2020-06-25] MEDS: NIFEdipine 60 MG Tablet PO (07:37)
[2020-06-25 08:27] VITALS: BP 142/70; PULSE 70; RESP 18; O2SAT 95
[2020-06-25 08:30] VITALS: TEMP 36.7
[2020-06-25 09:00] VITALS: BMI 34.4
[2020-06-25 10:00] VITALS: BP 142/70; PULSE 70; RESP 18; TEMP 36.7; O2SAT 95
--- NOTE | 2020-06-25 10:00 | NURSING ---
and patient aware of discharge instructions and verbalized understanding.
== END 2020-06-25 10:00 | disposition home or self-care (01) | DRG 57 ==
PROVIDERS: Admitting Provider Internal Medicine; Visit Provider Internal Medicine
DX: I69.354 Hemiplegia and hemiparesis following cerebral infarction affecting left non-dominant side (principal); E06.3 Autoimmune thyroiditis; E66.9 Obesity, unspecified; F17.200 Nicotine dependence, unspecified, uncomplicated; F41.9 Anxiety disorder, unspecified; I10 Essential (primary) hypertension; E78.5 Hyperlipidemia, unspecified; F32.9 Major depressive disorder, single episode, unspecified; F42.9 Obsessive-compulsive disorder, unspecified; E87.6 Hypokalemia; Z87.19 Personal history of other diseases of the digestive system; Z79.899 Other long term (current) drug therapy; Z79.82 Long term (current) use of aspirin; Z79.02 Long term (current) use of antithrombotics/antiplatelets; Z91.14 Patient's other noncompliance with medication regimen; Z68.34 Body mass index [BMI] 34.0-34.9, adult
CPT/HCPCS: 36415; 80048; 80053; 83735; 84100; 85027; 92522; 92610; 97110; 97112; 97116; 97162; 97165; 97530; 97535; 97802; 99251; G0463

== ENCOUNTER → 2020-06-29 11:37 | Outpatient (CLI) | payer OTHER, SELFPAY ==
[2020-06-25 09:00] VITALS: BMI 34.4
[2020-06-29 12:28] LABS: Absolute Lymphocyte Count 2.07 X10^3/uL (0.83-4.51); Absolute Neutrophil Count 9.7 X10^3/uL (2.0-7.7); Basophil# 0.06 X10^3/uL; Basophil% 0.5 % (0-1); Eosinophil# 0.11 X10^3/uL; Eosinophils% 0.9 % (0-5); Hematocrit 41.9 % (37-47); Hemoglobin 12.9 g/dL (12.0-15.0); Lymphocyte # 2.07 X10^3/ul (0.83-4.51); Lymphocyte % 16.7 % (19-41); Mean Corp Hgb Conc 30.8 g/dL (32-36); Mean Corpuscular Hgb 29.5 pg (27.0-32.0); Mean Corpuscular Volume 95.9 fL (81-99); Mean Platelet Vol. 11.4 fl (6.2-12.0); Monocyte# 0.45 X10^3/uL; Monocyte% 3.6 % (0-10); NRBC Flagged by Analyzer 0 % (0-5); Neutrophil # 9.69 X10^3/uL (2.7-7.7); Neutrophil % 78.1 % (47-70); Platelet Count 314 K/mm3 (150-450); RBC Distribution Width CV 13.2 % (11.6-14.6); Red Blood Count 4.37 M/mm3 (4.2-5.4); White Blood Count 12.4 K/mm3 (4.4-11.0)
[2020-06-29 12:50] LABS: AST(SGOT) 18 U/L (15-37); Alanine Aminotransfer ALT/SGPT 38 U/L (13-56); Albumin, Serum 3.8 g/dL (3.2-5.0); Alkaline Phosphatase 172 U/L (45-117); Anion Gap 6 (5-15); BUN 21 mg/dL (7-18); Calcium,Total 9.3 mg/dL (8.5-10.1); Chloride 106 mmol/L (98-107); EST Glomerular Filtration Rate 60 mL/min (>60); Est Glom Filt Rate - Afr Amer 73 mL/min (>60); Globulin 3.9 g/dL (2.2-4.2); Glucose 95 mg/dL (74-106); Potassium 4.3 mmol/L (3.5-5.1); Protein, Total 7.7 g/dL (6.4-8.2); Sodium Level 139 mmol/L (136-145); Thyroid Stim Hormone (TSH) 2.63 uIU/mL (0.358-3.74)
[2020-06-29 13:10] LABS: Hepatitis C Antibody Non-Reactive (Nonreactive)
== END ==
PROVIDERS: Visit Provider Family Medicine Geriatric Medicine
DX: Z13.89 Encounter for screening for other disorder (principal); R53.83 Other fatigue
CPT/HCPCS: 36415; 80053; 84443; 85025; 86803

== ENCOUNTER → 2020-07-06 12:44 | Outpatient (CLI) | payer OTHER, SELFPAY ==
[2020-06-25 09:00] VITALS: BMI 34.4
--- NOTE | 2020-07-06 12:50 | CT_ITS ---
STUDY: LOW DOSE CT LUNG CANCER SCREENING REASON FOR EXAM: Female, 60 years old. Smoking history of one half pack per day x10 years, quit 1 month ago RADIATION DOSAGE (If Supplied By Facility): CTDIvol = ( 3.02 ) mGy, DLP = ( 95.91 ) mGycm TECHNIQUE: No contrast was administered. Low dose technique was utilized (average mAS-38 and kVp 120). 1.25 mm axial source images with a slice interval of 1.25-mm were reconstructed in lung windows. 2.5 mm axial source images with a slice interval of 2.5-mm were reconstructed in lung windows. 5.0 mm axial source images with a slice interval of 5.0-mm were reconstructed in soft tissue windows. Nodule measured using lung windows on PACS and/or independent workstation with automated measurement of minimum and maximum diameter. Nodule measurement reported as average diameter rounded to the nearest whole number. Growth is defined as an increase ins size of greater than 1.5 mm. COMPARISON: None. Lung windows show the lungs to be normally expanded. No organized infiltrate, groundglass opacifications, or suspicious noncalcified mass or nodule. There are calcified coronary vessels. No suspicious adenopathy, thyroid gland is unremarkable. Bony structures show degenerative change. CT/Low Dose CT Lung Screening IMPRESSION: Lung-RADS category 1 - Continue annual screening with LDCT in 12 months. IMPORTANT NOTES FOR USE: ACR Lung-RADS Version 1.1 Assessment Categories Release Date: 2018 Category: Coded 0-4 bases on nodule(s) with highest degree of suspicion. Negative screen is defined as categories 1 and 2; a positive screen is defined as categories 3 and 4. Category 3 and 4A nodules that are unchanged on interval CT should be coded as category 2, and individuals returned to screening in 12 months. Category 4X: Category 3 or 4 nodules with additional imaging findings that increase the suspicion of lung cancer, such as spiculation, GGN that doubles in size in 1 year, enlarged lymph notes, etc. Category Modifiers: S (significant finding unrelated to lung cancer) Electronically Signed: Marciano Eldridge MD at 13:30 EDT , Service support ,
--- NOTE | 2020-07-06 15:26 | BI_ITS ---
MAMMOGRAPHY - BILATERAL SCREENING 3-D TOMOSYNTHESIS REASON FOR EXAM: Female, 60 years old. Routine screening PERTINENT HISTORY: No significant family history. TECHNIQUE: 2-D mammograms and 3-D Tomosynthesis of the breast (s) were performed. CAD was performed. COMPARISON: No comparison mammograms available at this time. If any prior films become available, an addendum to this report can be generated. FINDINGS: The breast composition is composed of scattered fibroglandular density. Scattered benign calcifications are seen. No dense spiculated masses or suspicious microcalcifications are identified. No architectural distortion is identified. There is no skin thickening or retraction. BI/SCRN MAMM (CAD)W/CYNTHIA BILAT IMPRESSION: No mammographic signs of malignancy. Routine yearly mammograms recommended. ASSESSMENT CATEGORY: BIRADS Category 2: Benign. A letter regarding these results will be sent to the patient by the facility within 30 days. FOLLOW UP RECOMMENDATION: Yearly follow up mammogram recommended. (A) Approximately 10% of breast cancers are not detected by mammography. A normal mammogram should not delay biopsy of a clinically suspicious abnormality. Electronically Signed: Marciano Eldridge MD at 10:14 EDT , Service support ,
== END ==
PROVIDERS: PCP Family Medicine Geriatric Medicine; Referring Provider Family Medicine Geriatric Medicine; Visit Provider Family Medicine Geriatric Medicine
DX: Z12.2 Encounter for screening for malignant neoplasm of respiratory organs (principal); F17.210 Nicotine dependence, cigarettes, uncomplicated; Z12.31 Encounter for screening mammogram for malignant neoplasm of breast
CPT/HCPCS: 71271; 77063; 77067

== ENCOUNTER → 2020-08-08 13:13 | Outpatient (CLI) | payer OTHER, SELFPAY ==
--- NOTE | 2020-08-08 13:16 | VDLE_ITS ---
Reason For Study: Edema Procedure LEFT This is a venous duplex using B-mode, color GSV is normal. flow and spectral Doppler. CFV is compressible, spontaneous, phasic, Exam performed in department. competent, and demonstrates normal A preliminary report was called and/or faxed augmentation. to [facility]. FV is compressible, spontaneous, phasic, competent and demonstrates normal augmentation. POP V is compressible, spontaneous, phasic, competent and demonstrates normal augmentation. T/P Trunk is compressible. PTV is compressible. LT PerV is compressible. VL/Venous Duplex US, Unilateral Interpretation Summary Deep veins of the left lower extremity are patent and compressible segmentally. There is no evidence of left lower extremity deep vein thrombosis. Valvular competence appears intac t within the proximal deep venous system on the left . The left great saphenous vein appears patent a nd compressible segmentally. Ordering Physician: Alek Knox Referring Physician: Alek Knox Chi Performed By: Tracy Clay RVT
== END ==
PROVIDERS: PCP Family Medicine Geriatric Medicine; Referring Provider Family Medicine Geriatric Medicine; Visit Provider Family Medicine Geriatric Medicine
DX: R60.0 Localized edema (principal)
CPT/HCPCS: 93971

== ENCOUNTER 2020-09-21 10:00 | Outpatient (RCR) | payer OTHER, SELFPAY ==
--- NOTE | 2020-07-03 17:02 | HP.PTEVAL ---
Patient's Visit Information DOMINIQUE DAVID is a 60 year old F referred to Physical Therapy by Dr. Alek Knox MD with a diagnosis of CVA, L hemiplegia. Date of Evaluation: 07/03/20 Physical Therapist: Yony Vaughn, PT, ATC - Visit Plan Frequency: 2-3x /Week Duration: 4-6 Weeks - Subjective CVA 06/06/20. Pt reports she was crocheting when she suffered from a CVA. Pt reports she didnt notice anything until later that everning. Pt reports the next day was worse, so she decided to go to the ER. Pt reports she notices some residual weakness in the L UE and LE. Pt reports she has also noticed unstedy gait since her CVAl. Pt denies falls at this time. No tingling or numbness in L LE. Pt is L hand dominant. Pt reports she has difficulty with eating and writing now secondary to her stroke. Pt also notes she has stairs at home but doesnt use them. Pt had PT at the hospital for a week after her CVA. 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 Pt does note R hip pain which she believes is due to overcompensating with R LE. Pt likes to garden during the summer, and she notes her laundry is in the basement. - Objective Neuro: B LE sensation is WNL to light touch. B patellar reflex= 2/3. MMT: R LE is grossly 4+/5 throughout while L LE is grossly 4-/5 throughout. Gait: Pt is able to ambulate 340 feet until feeling fatigued and asking to sit down. Stairs: Pt is able to ambulate with one cane and 1 handrail 1 flight of stairs. Pt stubbed her L foot on the steps x 3 while ascending. Pt us unable to reciprocate while descending. - Goals Goal 1:: Increase B LE strength x 1 grade to aid with stair negotiation Goal Time Frame: 4-6 Weeks Goal 2:: Increase SDB x 1 grade to aid with pt being able to ambulate without AD Goal Time Frame: 4-6 Weeks Goal 3:: Pt will be able to ambulate greater than 1000 feet to aid with community ambulation Goal Time Frame: 4-6 Weeks Goal 4:: I with HEP Goal Time Frame: 4-6 Weeks - Rehabilitation Potential Physical Therapy Diagnosis: L LE weakness, decreased balance, and difficulty with ambulation secondary to CVA - Anticipated Interventions Patient/Client Instruction: Educate patient on: Condition, Plan of Care For the Purpose of:: To improve self management Therapeutic Exercise to Include: Strength training, Endurance training, Balance training, Gait and locomotor training For the Purpose of:: To decrease pain, To increase ROM, To improve muscle performance and motor function Thank you for the opportunity to evaluate your patient. For Medicare and Medicare HMO plans, please review the plan of care and approve it. It will need to be FAXED BACK to us at [phone] for Medicare purposes. For Medicare only, by signing this I certify the plan of care. Please let me know if there are questions or concerns regarding this plan of care. Physician Signature: Date:
--- NOTE | 2020-07-12 10:59 | HP.OTEVAL_ITS ---
Patient's Visit Information DOMINIQUE DAVID is a 60 year old F, referred to Occupational Therapy by Dr. Alek Knox MD, with a diagnosis of left arm weakness/ CVA. Date of Evaluation: 07/12/20 Occupational Therapist: Lali Amaro, WILL/Amber, CHT - Subjective CVA 06/06/20. Pt reports she was crocheting when she suffered from a CVA. Pt reports she didn't notice anything until later that evening. Pt reports the next day was worse, so she decided to go to the ER. Pt reports she notices some residual weakness in the L UE and LE. Pt reports she has also noticed unsteady gait since her CVA. Pt denies falls at this time. No tingling or numbness in L LE. Pt is L hand dominant. Pt reports she has difficulty with eating and writing now secondary to her stroke. Pt also notes she has stairs at home but doesn't use them. Pt had PT/OT at the hospital for a week after her CVA. 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 Pt does note R hip pain which she believes is due to overcompensating with R LE. Pt likes to garden during the summer, and she notes her laundry is in the basement. - ADLs Dressing: Pants, Socks, Earrings Eating: Bring food to mouth, Use silverware, Drink from glass Grooming: Comb hair Kitchen: Peel fruits & vegetables, Open jars, Open bottle caps Comments: mixing Household: Vacuum, Laundry Miscellaneous: Take things out of wallet, Write, Operate spray bottle, Operate aerosol cans, Quentin/knit/needlework - ROM Shoulder: rightl/left WNL Elbow: right/left WNL - Strength Shoulder: right 4/5 left 4-/5 Elbow: right 4+/5 left 4-/5 Casino Floorperson: right 60# left 35# Lateral Pinch: right 8# left 3# Tripod Pinch: right 8# left 2# - Sensation Thumb: right 2.83 left 2.83 Index: right 2.83 left 2.83 Middle: right 2.83 left 2.83 Ring: right 2.83 left 2.83 Little: right 2.83 left 2.83 - Nine Hole Peg Right: 20.23 Left: 31.26 - In-Hand Manipulation Finger to Palm Translation: Normal - Right, Moderate - Left Palm to Finger Translation: Normal - Right, Moderate - Left - Quick DASH-Disab of Arm,Shoulder& Hand Quick DASH Score: 36.6650 - Goals Goal:: PT will demo 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 Pt will demo an increase in lateral and tripod pinch by 2# to increase pts independent with opening baggies, containers at PLOF by D/C. pt will demo a increase in left UE mmt 4+/5 shoulder flex/abduction Biceps to increase pts ind. with ADLs and IADL. Goal:: pt will demo a reduction in 9 hole peg time to less than 20 sec. demo a increase in FMS by d/c. pt will demo the ability to write name legibly 4/5 trials by d/c - Rehabilitation General Assessment: pt demo weakness and poor FMS with left dominate hand this limits pts ind. with ADLs and IADls. pt would benefit from skilled OT services 1-2x week for 6 to increase pts strength and return to PLOF. Today therapist ed. pt on UE PRE and FMS to increase her coordination and dexterity. Rehabilitation Potential: Good - Anticipated Interventions A/AAROM/PROM, Strengthening, Fine Motor Coord/Pérez, Home Program - Visit Plan Frequency: 2-3x /Week Duration: 6 Weeks TEXT: Thank you for the opportunity to evaluate your patient. For Medicare and Medicare HMO plans, please review the plan of care and approve it. It will need to be FAXED BACK to us at [phone] for Medicare purposes. Please let me know if there are questions or concerns regarding this plan of care. Physician Signature: Date:
--- NOTE | 2020-12-22 12:57 | HP.PT.NRP ---
DOMINIQUE DAVID was seen in my office for initial evaluation on 07/03/20. The following Plan of Care was established for this patient: Initial Frequency: 2-3x /Week Initial Duration: 4-6 Weeks Patient/Client Instruction: Educate patient on: Condition, Plan of Care For the Purpose of:: To improve self management Therapeutic Exercise to Include: Strength training, Endurance training, Balance training, Gait and locomotor training For the Purpose of:: To decrease pain, To increase ROM, To improve muscle performance and motor function This patient was last seen in our office . Pertinent comments regarding their Physical therapy will appear below: Pt was treated for 13 PT visits secondary to a CVA through the date of 09/21/20. Pt has not returned through todays date and is discontinued at this time. At this point I will be discontinuing this patient from physical therapy. I would be happy to see this patient again in the future if found appropriate by the physician. Thank you! Yony Vaughn, PT, ATC Balance/Gait/Functional tests - Balance/Special Test Scores Lower Extremity Functional Score: 51
== END 2020-09-21 19:00 | disposition home or self-care (01) ==
LOC: PT 10:00
PROVIDERS: PCP Family Medicine Geriatric Medicine; Referring Provider Family Medicine Geriatric Medicine; Visit Provider Family Medicine Geriatric Medicine
DX: Z86.73 Personal history of transient ischemic attack (TIA), and cerebral infarction without residual deficits (principal)
CPT/HCPCS: 97110; 97112; 97116; 97161; 97166; 97530

== ENCOUNTER → 2020-09-28 11:59 | Outpatient (CLI) | payer OTHER, SELFPAY ==
[2020-09-28 12:58] LABS: Absolute Lymphocyte Count 2.16 X10^3/uL (0.83-4.51); Absolute Neutrophil Count 5.5 X10^3/uL (2.0-7.7); Basophil# 0.05 X10^3/uL; Basophil% 0.6 % (0-1); Eosinophil# 0.06 X10^3/uL; Eosinophils% 0.7 % (0-5); Hematocrit 41.4 % (37-47); Lymphocyte # 2.16 X10^3/ul (0.83-4.51); Lymphocyte % 26.3 % (19-41); Mean Corp Hgb Conc 31.4 g/dL (32-36); Mean Corpuscular Hgb 29.5 pg (27.0-32.0); Mean Corpuscular Volume 93.9 fL (81-99); Monocyte# 0.42 X10^3/uL; Monocyte% 5.1 % (0-10); NRBC Flagged by Analyzer 0 % (0-5); Neutrophil # 5.51 X10^3/uL (2.7-7.7); Neutrophil % 67.1 % (47-70); Platelet Count 275 K/mm3 (150-450); RBC Distribution Width CV 13.5 % (11.6-14.6); RBC Distribution Width SD 46.4 fl (35.1-43.9); Red Blood Count 4.41 M/mm3 (4.2-5.4); White Blood Count 8.2 K/mm3 (4.4-11.0)
[2020-09-28 13:21] LABS: ALB/GLOB Ratio 1.2 RATIO (0.9-2.4); AST(SGOT) 16 U/L (15-37); Alanine Aminotransfer ALT/SGPT 25 U/L (13-56); Albumin, Serum 4.1 g/dL (3.2-5.0); Alkaline Phosphatase 159 U/L (45-117); Anion Gap 8 (5-15); BUN 20 mg/dL (7-18); BUN/Creat Ratio 21.8 RATIO (10-20); Calcium,Total 9.5 mg/dL (8.5-10.1); Chloride 108 mmol/L (98-107); Creatinine, Serum 0.92 mg/dL (0.55-1.02); EST Glomerular Filtration Rate 66 mL/min (>60); Est Glom Filt Rate - Afr Amer 80 mL/min (>60); Globulin 3.5 g/dL (2.2-4.2); Glucose 99 mg/dL (74-106); Potassium 3.8 mmol/L (3.5-5.1); Protein, Total 7.6 g/dL (6.4-8.2); Sodium Level 141 mmol/L (136-145); Thyroid Stim Hormone (TSH) 0.28 uIU/mL (0.358-3.74)
[2020-09-28 13:31] LABS: Vitamin D,25 Hydroxy 37.8 ng/mL
== END ==
PROVIDERS: PCP Family Medicine Geriatric Medicine; Visit Provider Family Medicine Geriatric Medicine
DX: I10 Essential (primary) hypertension (principal); E55.9 Vitamin D deficiency, unspecified
CPT/HCPCS: 36415; 80053; 82306; 84443; 85025

== ENCOUNTER → 2020-11-20 15:59 | Outpatient (CLI) | payer OTHER, SELFPAY ==
--- NOTE | 2020-11-20 16:15 | RAD_ITS ---
STUDY: X-RAY - CERVICAL SPINE REASON FOR EXAM: Female, 60 years old. Neck pain TECHNIQUE: 3 view(s) of the cervical spine were obtained. COMPARISON: None FINDINGS: Normal anterior atlantoaxial articulation. Normal odontoid process. Normal cervical lordosis. No focal listhesis. No significant scoliosis. No vertebral body fracture. Facet joints are normal alignment with mild diffuse degenerative change. Mild to moderate degenerative change of the intervertebral disc space at C6-C7 with similar change, to a lesser degree, seen at C5-C6.. Mild degenerative change of the uncovertebral joints from C5 through C7. No prevertebral soft tissue swelling. RAD/Cerv Spine 2 or 3 Views IMPRESSION: 1. No acute abnormality of the cervical spine. 2. Mild degenerative disc and joint disease of the lower cervical spine. Electronically Signed: Navin Mahoney MD at 5:00 EDT Tel , Service support ,
[2020-11-20 18:05] LABS: Thyroid Stim Hormone (TSH) 2.08 uIU/mL (0.358-3.74)
== END ==
LOC: POLAB3 16:00 → RAD 16:11
PROVIDERS: PCP Family Medicine Geriatric Medicine; Referring Provider Family Medicine Geriatric Medicine; Visit Provider Family Medicine Geriatric Medicine
DX: E03.9 Hypothyroidism, unspecified (principal); M54.2 Cervicalgia
CPT/HCPCS: 36415; 72040; 84443

== ENCOUNTER 2020-11-28 11:32 | Inpatient (IN) | payer OTHER, SELFPAY ==
[2020-11-28] VITALS (17 sets, daily range): BP systolic 116–171; BP diastolic 67–117; PULSE 71–113; RESP 11–19; TEMP 36.2–36.8; O2SAT 92–100; BMI 36.6; BMI 36.7
--- NOTE | 2020-11-28 12:36 | EKG12_ITS ---
Test Reason : Blood Pressure : / mmHG Vent. Rate : 106 BPM Atrial Rate : 106 BPM P-R Int : 168 ms QRS Dur : 100 ms QT Int : 328 ms P-R-T Axes : 064 026 118 degrees QTc Int : 435 ms Sinus tachycardia Inferior-posterior infarct , possibly acute Lateral injury pattern ACUTE VA / STEMI Abnormal ECG Confirmed by FRANCISCA CHAVEZ, BOB ([id number]), manager editorial RAJINDER KOCH ([id number]) on 11/29/2020 9:02:11 AM Referred By: Valeriy Laura Confirmed By:BOB ESPINOSA MD
--- NOTE | 2020-11-28 12:38 | EDS_ITS ---
HPI History of Present Illness Chief Complaint: Other, Pain/Inj Informant: patient and spouse/S.O. Narrative Narrative: 60-year-old female presenting to the emergency department with intermittent episodes of pain in her neck. Patient states that symptoms began last Friday and have worsened. She describes pain starting from her mandibles extending down through the neck and into the shoulders and down into the hands. She states that the episodes get worse each time and this particular episode today has now lasted 3 hours. She saw her primary care physician last Friday and again yesterday. They are trying to get her an MRI. She states that she received a shot of steroids. She also was taking a muscle relaxant. She reports having had x-rays done last Friday. my review of these shows mild degenerative changes. Patient denies any muscle weakness. No rashes. No injuries. She denies chest pain or shortness of breath. 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 Obesity (BMI 30.0-34.9) OCD (obsessive compulsive disorder) Smoker Home Medications aspirin 81 mg PO DAILY 06/17/20 [History Last Taken Unknown] levothyroxine 112 mcg PO DAILY 06/17/20 [History Last Taken Unknown] losartan 100 mg PO DAILY 06/17/20 [History Last Taken Unknown] acetaminophen [Tylenol] 650 mg PO Q4H PRN PRN #120 tab 06/23/20 [Rx Last Taken Unknown] aspirin 81 mg PO DAILY@0800 #30 tab 06/23/20 [Rx Last Taken Unknown] atorvastatin 40 mg PO QHS 30 Days #30 tab 06/23/20 [Rx Last Taken Unknown] clopidogrel 75 mg PO DAILY 30 Days #30 tab 06/23/20 [Rx Last Taken Unknown] levothyroxine 112 mcg PO DAILY@0600 30 Days #30 tab 06/23/20 [Rx Last Taken Unknown] losartan 100 mg PO DAILY 30 Days #30 tab 06/23/20 [Rx Last Taken Unknown] metoprolol succinate 50 mg PO DAILY 30 Days #30 tab 06/23/20 [Rx Last Taken Unknown] nifedipine 60 mg PO DAILY 30 Days #30 tab 06/23/20 [Rx Last Taken Unknown] potassium chloride [Klor-Con M20] 20 meq PO DAILYCM 30 Days #30 tab 06/23/20 [Rx Last Taken Unknown] Allergy/AdvReac Type Severity Reaction Status Date / Time No Known Allergies Allergy Verified 11/28/20 11:37 Family History Aunt Hypertension Mother Hypertension Sister Thyroid disorder Other Hyperlipidemia Surgical History H/O colonoscopy History of cholecystectomy Social History adopted: No household members: spouse housing: house number of children: 4 current occupational status: unemployed Smoking Status: Current every day smoker Tobacco: How many years used: 10 quit status: considering quitting counseling given: provider counseling alcohol intake: current alcohol intake frequency: 0-2 drinks per day substance use type: does not use ROS ROS ED Constitutional Constitutional ED: Denies chills or weight loss Eyes Eyes: Denies change in vision or diplopia ENT ENT ED: Denies ear pain, rhinorrhea or sore throat Cardiovascular Cardiovascular: Denies chest pain, orthopnea, palpitations or racing heartbeat Respiratory/Chest Respiratory/Chest: Denies cough, dyspnea or orthopnea Gastrointestinal Gastrointestinal: Denies abdominal pain, diarrhea, nausea or vomiting Genitourinary Genitourinary ED: Denies dysuria, hematuria or urinary frequency Musculoskeletal Musculoskeletal: Reports neck pain; Denies arthralgias or myalgias Integumentary Denies abscess or rash Neurologic Neurologic: Denies headache(s) or weakness Psychiatric Psychiatric: Denies anxiety, depression, suicidal ideation or suicidal thoughts Endocrine Endocrinology: Denies polydipsia, polyphagia or polyuria Allergic/Immunologic Allergic/Immunologic ED: Denies mouth swelling, tongue swelling or urticaria EXAM Physical Exam Const Vital Signs: 11/28/20 11:34 Temperature 97.2 F L Temperature Source Temporal Pulse Rate 113 H Respiratory Rate 16 Blood Pressure 162/100 H Blood Pressure Mean 120 Pulse Ox 100 Oxygen Delivery Method Room Air Positive well nourished and well developed General Appearance ED: well developed HEENT Reports normocephalic, head/scalp atraumatic and moist mucous membranes Eyes PERRL and EOMs intact bilaterally Neck no lymphadenopathy, supple and no JVD Resp normal respiratory effort and clear to auscultation bilaterally Cardio regular rate, regular rhythm and no murmurs GI normal to inspection, nondistended, normoactive bowel sounds and non-tender Palpation: soft Back/Spine no CVA tenderness and normal ROM Extremity normal to inspection General Extremety ED: Negative for edema General Extremity: Negative for edema Neuro oriented x3 and CN's II-XII intact bilaterally Sensorium / Orientation: alert Motor Exam: strength 5/5 throughout Psych mental status grossly normal Mood & Affect: Negative for depressed or tearful Skin no rashes or lesions noted and no wounds MDM MDM MDM Narrative Medical decision making narrative: Patient received morphine Zofran and Valium. EKG demonstrates ST segment elevation inferiorly with reciprocal changes. A STEMI team was called and the patient received heparin Brilinta aspirin and metoprolol because her heart rate was greater than 100. My interpretation of the chest x-ray is no acute process. Dr. Laura from interventional cardiology will be down to see the patient EKG Initial EKG: Attestation: I personally reviewed and interpreted this EKG as follows: Comments: Sinus tachycardia with a ventricular rate of 106. Significant ST elevation noted inferior/lateral with reciprocal changes Critical Care Time Critical Care Time: Yes Critical care time (excluding procedures): 30-74 minutes (31 min), Including time spent:, Discussing w/Patient &/or Family/Mat Gauger, Discussing w/Consultants, Arranging Admission or Transfer and Performing Direct Patient Care at Bedside Discharge Plan Dx/Rx/DC Orders Clinical Impression: ST elevation (STEMI) myocardial infarction Disposition Disposition: Acute Care [facility]
[2020-11-28] MEDS: diazePAM 5 MG Tablet PO (12:48)
[2020-11-28] MEDS: Ondansetron 4 MG/2 ML Vial IV (12:51)
[2020-11-28] MEDS: Morphine 4 MG/ML Syringe IV (12:52)
--- NOTE | 2020-11-28 12:55 | RAD_ITS ---
STUDY: X-RAY CHEST REASON FOR EXAM: Female, 60 years old. STEMI TECHNIQUE: Single AP portable view of the chest. COMPARISON: None. FINDINGS: EKG electrodes are seen. The lungs are clear and expanded. There is no demonstrated pleural abnormality. Normal size heart. Normal mediastinum and treva. Normal visualized pulmonary arteries. There is atherosclerotic tortuosity of the aortic arch and descending thoracic aorta. There are diffuse degenerative changes of the visualized thoracic spine. Normal visualized ribs, clavicles, and shoulders. There is no demonstrated abnormality of the visualized soft tissue structures of the upper abdomen. RAD/Chest 1 View (Portable) IMPRESSION: No acute abnormality is seen. Electronically Signed: Gerardo Santillan MD at 13:21 EDT , Service support ,
[2020-11-28] MEDS: Metoprolol Tartrate 5 MG/5 ML Vial IV (13:00)
[2020-11-28] MEDS: Heparin Injection (Vial) 5,000 UNIT/ML VIAL 4000 UNIT SC (13:01)
[2020-11-28] MEDS: TICAGRELOR 90 MG TABLET 180 MG PO (13:01)
[2020-11-28] MEDS: Aspirin 325 MG Tablet PO (13:04)
[2020-11-28 13:10] LABS: Absolute Neutrophil Count 22.4 X10^3/uL (2.0-7.7); Basophil# 0.05 X10^3/uL; Basophil% 0.2 % (0-1); Eosinophil# 0.02 X10^3/uL; Eosinophils% 0.1 % (0-5); Hematocrit 42.5 % (37-47); Lymphocyte % 9.5 % (19-41); Mean Corp Hgb Conc 32.9 g/dL (32-36); Mean Corpuscular Hgb 29.9 pg (27.0-32.0); Mean Corpuscular Volume 90.8 fL (81-99); Mean Platelet Vol. 10.6 fl (6.2-12.0); Monocyte# 1.12 X10^3/uL; Monocyte% 4.3 % (0-10); NRBC Flagged by Analyzer 0 % (0-5); Neutrophil % 85.3 % (47-70); POSITIVE DIFFERENTIAL YES; Platelet Count 368 K/mm3 (150-450); RBC Distribution Width CV 14.5 % (11.6-14.6); RBC Distribution Width SD 48.1 fl (35.1-43.9); Red Blood Count 4.68 M/mm3 (4.2-5.4); White Blood Count 26.3 K/mm3 (4.4-11.0)
[2020-11-28 13:12] LABS: Differential Indicated SCAN CRITERIA MET
[2020-11-28 13:36] LABS: AST(SGOT) 24 U/L (15-37); Alanine Aminotransfer ALT/SGPT 27 U/L (13-56); Alkaline Phosphatase 156 U/L (45-117); Anion Gap 12 (5-15); BUN 25 mg/dL (7-18); BUN/Creat Ratio 17.1 RATIO (10-20); Calcium,Total 10.2 mg/dL (8.5-10.1); Chloride 105 mmol/L (98-107); Creatinine, Serum 1.46 mg/dL (0.55-1.02); EST Glomerular Filtration Rate 39 mL/min (>60); Est Glom Filt Rate - Afr Amer 47 mL/min (>60); Globulin 4.1 g/dL (2.2-4.2); Glucose 140 mg/dL (74-106); Potassium 3.6 mmol/L (3.5-5.1); Protein, Total 8.1 g/dL (6.4-8.2); Sodium Level 142 mmol/L (136-145); Troponin-I HS 1000 pg/mL (3.0-54.0)
--- NOTE | 2020-11-28 14:22 | PCS.PANDOC ---
PANDEMIC DOCUMENTATION INITIATED: Date: 10/02/2020 Time: 190
--- NOTE | 2020-11-28 14:24 | PCI.CARDCATH ---
PCI Cardiac Cath Report PCI Report: Procedure performed; 1. Left heart catheterization 2. Selective left coronary system angiography 3. Successful PCI/percutaneous core intervention of occluded 100% proximal RCA with NATALYA 0 flow, following balloon dilatation and placement of drug-eluting stent Using 2.5 x 20 mm Emerge balloon, followed by placement of 3.5 x 35 mm overlap with 3.5 x 26 mm to the RCA [proximal?mid large dominant RCA] with reduction of stenosis to 0% And achievement of NATALYA-3 flow. 4. Measurement of LVEDP 5. Low ventriculogram 6. Moderate sedation 7. Placement of TR band to right radial artery arteriotomy site. Preprocedure diagnosis; Patient 60-year-old who presented to the ER at [facility], around 11:32 AM complaining of Jaw pain she has no symptoms of chest pain. She had a history of hypertension, stroke in July 2020 seen and followed at [facility]. Patient repeatedly denied any symptoms of chest pain at this admission she mainly had jaw pain with some radiation to the left shoulder and she went to see her primary care physician. When her symptoms got worse this morning she was brought into the ER where an EKG was obtained at 12:57 noon-time showed significant ST elevation in the inferior leads, and reciprocal ST depression noted in the lateral and anterior leads.. Clinical diagnosis of acute coronary syndrome. She was given 4000 of heparin, Brilinta and regular aspirin in the ER in addition to metoprolol due to sinus tachycardia, blood pressure has been stable. I evaluated this patient in the ER and based on her clinical presentation and significantly abnormal EKG, we proceed with emergency cardiac catheterization. Consent; Risk and benefits of the procedure explained detail to patient she elected to proceed informed consent obtained. Diagnostic and interventional equipment used; 1. 6 Swazi sheath placed in the right radial artery 2. 5 Swazi JL 3.5 diagnostic catheter 3. 6 Swazi JR4 guide catheter 4. 0.014 run-through extra floppy 180 cm straight wire 5. 2.5 x 20 mm emerge/MR balloon 6. 3.5 x 35 mm drug-eluting stent/Orsiro MR 7. 3.5 x 26 mm drug-eluting stent/Orsiro MR 8. 3.5 x 15 mm NC emerge balloon 9. 5 Swazi angled pigtail catheter Procedure in detail; Patient brought to the [facility] as an emergency 6 Swazi Terumo sheath, placed under fluoroscopy guidance to the right radial artery, this followed by cocktail of 3000 unit heparin, 2.5 verapamil and 200 mcg nitroglycerin given through the sheath. Patient was already given Brilinta 180 mg in the ER in addition to regular aspirin and a 4000 heparin ACT level obtained Then will proceed with a Glidewire under fluoroscopic guidance and 5 Swazi 3.5 JL diagnostic catheter, cannulated the left main without difficulty, multiple views of the left coronary system were obtained including TOGOLESE, GOLD cranial and caudal views. We identified the culprit lesion as collaterals were noted from the left to the right system and will proceed immediately with 6 Swazi JR4 guide catheter cannulated the RCA which demonstrated large proximal RCA occlusion. Then we proceed with the guidewire run-through across the lesion followed by use of 2.5 x 20 mm Emerge balloon dilate the lesion and followed by placement of drug-eluting stent 3.5 x 35 mm to proximal RCA, overlap with 3.5 x 26 mm. Up to 16 VALARIE, then we use 3.5 x 15 mm NC balloon to the proximal RCA stent and achieve excellent result with reduction of stenosis from 100% to 0% and achievement of NATALYA III flow from 0 to NATALYA-3 with no complication in the [facility]. This patient had a recent stroke in July 2020 and seen at [facility] and based on that she is not a candidate for Integrilin infusion. We elected to use heparin only in this case an additional 3000 of heparin was given IV. Following the stent placement noted resolution of the ST segment elevation patient's symptoms of jaw discomfort resolved as well she was stable clinically Hemodynamics; 1. LV systolic function preserved ejection fraction is still in the range of 50-55% 2. Mild inferobasal hypokinesia 3. There is no systolic gradient across aortic valve. 4. LVEDP measured 28mmHg 5. No mitral regurgitation noted. Coronary angiographic findings; A. Left main coronary artery, short calcified, with distal nonobstructive atherosclerosis 10-20%. Left main coronary artery bifurcated into LAD and the left circumflex. Left anterior descending artery calcified, ostial LAD had nonobstructive around 20% stenosis, proximal and mid, with high-grade 95% proximal stenosis, at the site of the large diagonal D1 Calcification extends into the mid LAD with diffuse atherosclerosis of 80%, distal and apical LAD had 90% stenosis. Collaterals noted from the septal branches of LAD to the distal RCA/through the right posterior descending artery. Left circumflex moderate, large size vessel with mid left circumflex 70% stenosis. B. Occluded proximal RCA large dominant vessel with successful PCI and placement of drug-eluting stent as a specified and maintenance of NATALYA-3 flow TR band applied to right radial artery arteriotomy site with no complication in the [facility]. Recommendation and plan; 1. Patient will be on dual antiplatelet therapy Brilinta/aspirin for 1 year 2. Patient was seen and evaluated at [facility] in July 2020 for stroke Due to the complexity of the LAD lesion in the circumflex will refer for evaluation of bypass surgery/CABG 3. Patient will be on GDMT/therapy with beta-josep carvedilol, lisinopril, statin high-dose atorvastatin 40 mg. 4. We will start the patient on phase 1 cardiac rehab following complete myocardial revascularization. 5 patient will follow up with [facility] cardiac team for continuation of cardiac care plan.
--- NOTE | 2020-11-28 14:30 | EKG12_ITS ---
Test Reason : AM EKG Blood Pressure : / mmHG Vent. Rate : 082 BPM Atrial Rate : 082 BPM P-R Int : 128 ms QRS Dur : 086 ms QT Int : 402 ms P-R-T Axes : 037 -13 157 degrees QTc Int : 469 ms Normal sinus rhythm Inferior infarct , recent T wave abnormality, consider lateral ischemia Abnormal ECG Confirmed by FRANCISCA CHAVEZ, BOB ([id number]), editor & co founder RAJINDER KOCH ([id number]) on 11/29/2020 1:38:00 PM Referred By: Valeriy Laura Confirmed By:BOB ESPINOSA MD
--- NOTE | 2020-11-28 14:34 | PCS.PANDOC ---
PANDEMIC DOCUMENTATION INITIATED: Date: 10/02/2020 Time: 190
--- NOTE | 2020-11-28 15:01 | ECHOD_ITS ---
Reason For Study: Chest Pain Procedure This was a 2D Doppler, Color Flow transthoracic echocardiogram. Exam performed portable in ICU/CCU. Left Ventricle Normal left ventricle. The estimated ejection fraction is EF 50-55 %. Right Ventricle Normal right ventricle. Normal systolic function. Atria The left atrium is mildly enlarged. Normal right atrium. Mitral Valve The mitral valve is structurally normal. No prolapse or stenosis seen. No mitral valve insufficiency. Tricuspid Valve The tricuspid valve is not well visualized. No tricuspid valve insufficiency. Aortic Valve The aortic valve is not well visualized. Pulmonic Valve The pulmonic valve is not well visualized. Great Vessels Normal aortic root. Pericardium/Pleural No pericardial effusion. MMode/2D Measurements & Calculations LVIDd: 4.2 cm IVSd: 1.4 cm LA dimension: 3.7 cm LVIDs: 2.9 cm LVPWd: 1.1 cm FS: 31.1 % LAV(MOD-bp): 62.0 ml LA A4 area: 19.9 cm2 RA A4 area: 11.9 cm2 LAV(MOD-bp) Indexed: 31.6 ml/m2 LAV(MOD-sp2): 55.2 ml LAV(MOD-sp4): 58.6 ml Time Measurements MV dec time: 0.24 sec Doppler Measurements & Calculations MV E max jatin: 72.1 cm/sec Lat Peak E' Jatin: 6.8 cm/sec Med Peak E' Jatin: 5.0 cm/sec MV A max jatin: 81.9 cm/sec E/E' lat: 10.5 E/E' med: 14.3 MV E/A: 0.88 MV V2 max: 80.8 cm/sec MV P1/2t max jatin: 77.0 cm/sec Ao V2 max: 106.2 cm/sec MV max P.6 mmHg MV P1/2t: 57.0 msec Ao max P.5 mmHg MV V2 mean: 47.1 cm/sec MV dec slope: 396.0 cm/sec2 MV mean P.1 mmHg MVA(P1/2t): 3.9 cm2 MV V2 VTI: 22.6 cm LV V1 max: 95.9 cm/sec PA V2 max: 73.8 cm/sec TR max jatin: 286.5 cm/sec LV V1 max P.7 mmHg TR max P.8 mmHg ECHO/Echo Complete Interpretation Summary The estimated ejection fraction is EF 50-55 %. Mild Infero basal Hypokinesia Ordering Physician: Amado Mendez Referring Physician: Valeriy Laura Performed By: Luciano Contreras RCS
--- NOTE | 2020-11-28 15:01 | HP.PCM.HOS_ITS ---
HPI - General General Date of Admission: 11/28/20 HPI Narrative DOMINIQUE DAVID, is a 60 F who presents with pain in her neck, jaw between her shoulders and down her arms today. Symptoms began at 1030. Patient states that over the week she has had it intermittently but it was much more intense today beginning very suddenly. Patient has had some left neck tenderness over the past year felt to be more musculoskeletal but over the past week she developed this pain as mentioned above. She presented to the emergency room and was found to have inferior ST elevations. STEMI alert was called and patient was taken to the [facility]. Patient underwent PCI to the RCA. Patient was then moved to the ICU where the patient is currently pain-free at this time. Patient has never had a myocardial infarction before. Of note, patient denied any chest pain nor any shortness of breath. 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 Myocardial infarct Obesity (BMI 30.0-34.9) OCD (obsessive compulsive disorder) Stroke/cerebrovascular accident Home Medications aspirin 81 mg PO DAILY 06/17/20 [History Last Taken Unknown] levothyroxine 112 mcg PO DAILY 06/17/20 [History Last Taken Unknown] losartan 100 mg PO DAILY 06/17/20 [History Last Taken Unknown] acetaminophen [Tylenol] 650 mg PO Q4H PRN PRN #120 tab 06/23/20 [Rx Last Taken Unknown] aspirin 81 mg PO DAILY@0800 #30 tab 06/23/20 [Rx Last Taken Unknown] atorvastatin 40 mg PO QHS 30 Days #30 tab 06/23/20 [Rx Last Taken Unknown] clopidogrel 75 mg PO DAILY 30 Days #30 tab 06/23/20 [Rx Last Taken Unknown] levothyroxine 112 mcg PO DAILY@0600 30 Days #30 tab 06/23/20 [Rx Last Taken Unknown] losartan 100 mg PO DAILY 30 Days #30 tab 06/23/20 [Rx Last Taken Unknown] metoprolol succinate 50 mg PO DAILY 30 Days #30 tab 06/23/20 [Rx Last Taken Unknown] nifedipine 60 mg PO DAILY 30 Days #30 tab 06/23/20 [Rx Last Taken Unknown] potassium chloride [Klor-Con M20] 20 meq PO DAILYCM 30 Days #30 tab 06/23/20 [Rx Last Taken Unknown] Allergy/AdvReac Type Severity Reaction Status Date / Time No Known Allergies Allergy Verified 11/28/20 11:37 Family History Aunt Hypertension Mother Hypertension Sister Thyroid disorder Other Hyperlipidemia Surgical History H/O colonoscopy History of cholecystectomy History of coronary artery stent placement Social History adopted: No household members: spouse housing: house number of children: 4 current occupational status: unemployed Smoking Status: Former smoker Tobacco: How many years used: 10 quit status: considering quitting counseling given: provider counseling alcohol intake: current alcohol intake frequency: 0-2 drinks per day substance use type: does not use ROS ROS Narrative Patient has and some residual left-sided weakness related with her stroke that she had in May. All review of systems were negative except as mentioned above in the history of present illness and the other review of systems. Vital Signs Vital Signs Vital Signs: 11/28/20 11:34 11/28/20 13:03 11/28/20 13:16 Temperature 36.2 C L 36.6 C Temperature Source Temporal Temporal Pulse Rate 113 H 89 Respiratory Rate 16 16 Respiratory Effort Normal Non-Labored Blood Pressure 162/100 H 171/117 H Blood Pressure Mean 120 135 Pulse Ox 100 98 Oxygen Delivery Method Room Air Room Air Weight Weight: 94.12 kg Body Mass Index (BMI) 36.7 Physical Exam Const alert General Appearance: cooperative HEENT normocephalic and head/scalp atraumatic Eyes PERRL Neck no lymphadenopathy and supple Resp normal respiratory effort, no retractions, no use of accessory muscles and clear to auscultation bilaterally Cardio regular rate, regular rhythm, S1 normal heart sound and S2 normal heart sound GI normal to inspection, nondistended, normoactive bowel sounds, soft to palpation, non-tender and non-distended Extremity normal to inspection Skin no rashes or lesions noted and no wounds Neuro no focal motor deficits Sensorium / Orientation: awake and alert Psych affect normal Results Lab / Micro Data Attestation: I reviewed the patient's lab results. Result Diagrams: 11/28/20 12:55 11/28/20 12:55 Labs: Laboratory Results - last 24 hr 11/28/20 12:55: WBC 26.3 H, RBC 4.68, Hgb 14.0, Hct 42.5, MCV 90.8, MCH 29.9, MCHC 32.9, RDW Std Deviation 48.1 H, RDW Coeff of Siri 14.5, Plt Count 368, MPV 10.6, Immature Gran % (Auto) 0.600, Neut % (Auto) 85.3 H, Lymph % (Auto) 9.5 L, Willacy % (Auto) 4.3, Eos % (Auto) 0.1, Baso % (Auto) 0.2, Absolute Neuts (auto) 22.4 H, Absolute Lymphs (auto) 2.50, Nucleated RBC % 0, Differential Comment COMMENT 11/28/20 12:55: Sodium 142, Potassium 3.6, Chloride 105, Carbon Dioxide 25.0, Anion Gap 12, BUN 25 H, Creatinine 1.46 H, Estim Creat Clear Calc 33.90, Est GFR (MDRD) Af Amer 47 L, Est GFR (MDRD) Non-Af 39 L, BUN/Creatinine Ratio 17.1, Glucose 140 H, Calcium 10.2 H, Total Bilirubin 0.40, AST 24, ALT 27, Alkaline Phosphatase 156 H, Troponin I High Sens 1000 H*, Total Protein 8.1, Albumin 4.0, Globulin 4.1, Albumin/Globulin Ratio 1.0 EKG Initial EKG: Attestation: I personally reviewed and interpreted this EKG as follows: Prior EKG tracings: available for review EKG Rhythm Intrepretation: Sinus Rhythm (ST elevations in the inferior leads with reciprocal changes.) Follow-up EKG: Attestation: I personally reviewed and interpreted this EKG as follows: Prior EKG tracings: available for review EKG Rhythm Intrepretation: Sinus Rhythm (Resolving ST elevations in inferior lead) Radiology Impression Chest X-Ray 11/28/20 12:55 IMPRESSION: No acute abnormality is seen. Electronically Signed: Gerardo Santillan MD at 13:21 EDT , Service support , Assessment & Plan Assessment/Plan (1) STEMI (ST elevation myocardial infarction): QUALIFIERS: Involved coronary artery: right coronary artery Qualified Code(s): I21.11 - ST elevation (STEMI) myocardial infarction involving right coronary artery PLAN: 1. STEMI * Status post PCI to the RCA * On aspirin, ticagrelor, carvedilol, lisinopril * Check echocardiogram * Patient is already been evaluated by cardiology. * Check lipid panel 2. History of a stroke * Continue with meds as above 3. CKD 3 a * Creatinine up from September * Will give some gentle hydration and monitor 4. VTE prophylaxis: SCDs for now. 5. CODE STATUS: Addressed with the patient. Patient wishes to be full code 6. Covid vaccination status: Patient is unvaccinated and nor has she had Covid that she is aware of. Advised that she should be vaccinated for COVID-19 given her risk factors. I did tell her that we could administer least first dose of Pfizer here. She gave no answer into the affirmative either way. Charges/Coding Visit Charges Inpatient E&M: 75712 Init Hosp L3
--- NOTE | 2020-11-28 15:28 | CRPHASE1_ITS ---
Patient Communication PHII Cardiac Rehab Discussed with Patient:: Yes Guide to Cardiac Rehab Given to Patient:: Yes Cardiac Rehab Facility Choice List Given to Patient:: Yes Choice Program [facility] CR PHII:: Communication Given to CR Choice Program Other:: Communication Given to CR, With permission faxed order and referral information Bead Cutter:: Valeriy Laura Refer Phase II Cardiac Rehab:: Yes Sessions:: 36 sessions - 3 days/wk, 12 weeks Cardiac Rehabilitation Info Cardiac Rehabilitation Program Information: Cardiac Rehabilitation is important for patients like you who are recovering from a heart problem. Cardiac rehabilitation programs are recognized as integral to the continued care of the patient with coronary heart disease. The cardiac rehabilitation program is designed to optimize a patient's physical, psychological, and social functioning. Health care transition mgr work in cardiac rehabilitation programs and assist you with getting the treatments you need to get stronger and healthier - like exercise, healthy eating habits, and medications. Cardiac rehabilitation has been show to help people with heart problems live longer and have better life enjoyment than people who do not go to cardiac rehabilitation. Please contact the Cardiac Rehabilitation Program at [facility] [place] at in two weeks if you have not heard from them.
--- NOTE | 2020-11-28 15:28 | CRPH1.INSTRU ---
General Education CAD and cardiac anatomy and function:: Patient communicates acknowledgment Explanation of diagnoses and procedures:: Patient communicates acknowledgment Sign/Symptoms of CT:: Patient communicates acknowledgment Antiplatelet therapy: Patient communicates acknowledgment Smoking Patient Nicotine/Smoking Risk Factors Are:: Non-smoker Recommendations Include:: Previous smoker; encourage continued cessation Nicotine/Smoking Response Code:: Patient communicates acknowledgment Dyslipidemia Patient Dyslipidemia Risk Factors Are:: Total Cholesterol, Triglycerides, HDL, LDL Recommendations Include:: Lipid profile not available Dyslipidemia Response Code:: Patient communicates acknowledgment Overweight/Obesity Patient Overweight/Obesity Risk Factors Are:: Obesity - > or = 30 Recommendations Include:: Weight loss of 5-10%, Reduced calorie diet, Exercise 5-7 times/week Overweight/Obesity:: Patient communicates acknowledgment Hypertension Patient Hypertension Risk Factors Are:: No documented hx of HTN Recommendations Include:: Maintain BP <130/85, DASH dietary guidelines, Decrease/maintain normal body weight, Moderation of ETOH Hypertension:: Patient communicates acknowledgment Diabetes Patient Diabetes Risk Factors Are:: No documented hx of diabetes Metabolic Syndrome Patient Metabolic Syndrome Risk Factors Are [3 of 5]:: Waist circumference > 35 [female] or 40 [male], Hypertension Recommendations Include:: Encouraged follow-up with Primary Care Physician Metabolic Syndrome Response Code:: Patient communicates acknowledgment Sedentary Patient Sedentary Risk Factors Are:: Lack of regular exercise Recommendations Include:: Aerobic exercise 5-7 times/week for 20-30 minutes continuously, Benefits of regular exercise, Discussed home walking program, Monitored Outpatient Cardiac Rehab Stress Patient Stress Risk Factors Are:: Patient denies stress as a risk factor Recommendations Include:: Identification of stressors, and assessment of coping skills, Stress management techniques Stress Response Code:: Patient communicates acknowledgment
--- NOTE | 2020-11-28 15:43 | CHAPLAIN ---
Type of Pastoral Visit ___ Initial Visit ___ Follow-up Visit ___ On-call Visit ___ General Patient Visit ___ Spiritual Assessment ___ Family Conference ___ Bereavement _x__ Rapid Response ___ Code Blue ___ Other (describe below) Pastoral Care Referral From ___ Patient ___ Family ___ Nurse ___ Physician ___ Sieve Maker ___ Political Cartoonist _x__ Other (describe below) Sacrament/Intervention _x__ Active listening ___ Anointing ___ Gnosticism ___ Bereavement ___ Communion ___ Rosalia exploration ___ ___ Life review ___ Prayer ___ Reconciliation ___ Sacrament of Sick _x__ Supportive presence ___ Wedding ___ Other (describe below) Pastoral Comments patient was taken to [facility] for heart procedures out of ED; met with spouse in waiting room and gave presence, water, time to talk during the wait in [facility]; spouse received phone calls and the visit ended as spouse said he would be fine; will follow patient as desired
[2020-11-28 16:48] LABS: Troponin-I HS > 125000 pg/mL (3.0-54.0)
[2020-11-28] MEDS: 0.9% Normal Saline 1,000 ML 75 ML IV (18:15)
[2020-11-28] MEDS: HEPARIN/D5w 25,000 UNITS 25,000 UNITS/250 ML IV.SOLN. 7 UNITS IV (18:42)
[2020-11-28 19:32] LABS: Prothrombin Time (Protime)PT. 12.6 SECONDS (11.7-14.9)
[2020-11-28 20:52] LABS: Partial Thromboplast Time 95.6 Seconds (24.1-36.2)
[2020-11-28] MEDS: Atorvastatin Calcium 40 MG Tablet PO (22:26)
[2020-11-28] MEDS: Carvedilol 3.125 MG TABLET PO (22:26)
[2020-11-28 23:37] LABS: Troponin-I HS > 125000 pg/mL (3.0-54.0)
[2020-11-29] VITALS (16 sets, daily range): BP systolic 107–140; BP diastolic 62–98; PULSE 71–85; RESP 12–15; TEMP 36.1–37.1; O2SAT 95–98
[2020-11-29 01:27] LABS: Partial Thromboplast Time 46.6 Seconds (24.1-36.2)
[2020-11-29] MEDS: Levothyroxine 112 MCG Tablet PO (06:47)
[2020-11-29 07:02] LABS: Absolute Lymphocyte Count 2.83 X10^3/uL (0.83-4.51); Absolute Neutrophil Count 9.7 X10^3/uL (2.0-7.7); Basophil# 0.02 X10^3/uL; Basophil% 0.1 % (0-1); Eosinophil# 0.05 X10^3/uL; Eosinophils% 0.4 % (0-5); Hematocrit 37.7 % (37-47); Hemoglobin 12.4 g/dL (12.0-15.0); Lymphocyte # 2.83 X10^3/ul (0.83-4.51); Lymphocyte % 20.9 % (19-41); Mean Corp Hgb Conc 32.9 g/dL (32-36); Mean Corpuscular Hgb 29.7 pg (27.0-32.0); Mean Corpuscular Volume 90.2 fL (81-99); Mean Platelet Vol. 10.3 fl (6.2-12.0); Monocyte# 0.88 X10^3/uL; Monocyte% 6.5 % (0-10); NRBC Flagged by Analyzer 0 % (0-5); Neutrophil # 9.71 X10^3/uL (2.7-7.7); Neutrophil % 71.7 % (47-70); Platelet Count 273 K/mm3 (150-450); RBC Distribution Width CV 14.6 % (11.6-14.6); Red Blood Count 4.18 M/mm3 (4.2-5.4); White Blood Count 13.6 K/mm3 (4.4-11.0)
[2020-11-29 07:20] LABS: Anion Gap 10 (5-15); BUN 24 mg/dL (7-18); BUN/Creat Ratio 22.9 RATIO (10-20); Calcium,Total 8.8 mg/dL (8.5-10.1); Chloride 105 mmol/L (98-107); Creatinine, Serum 1.05 mg/dL (0.55-1.02); EST Glomerular Filtration Rate 57 mL/min (>60); Est Glom Filt Rate - Afr Amer 69 mL/min (>60); Estimated Creatinine Clearance 47.13 ml/min; Glucose 90 mg/dL (74-106); Potassium 3.5 mmol/L (3.5-5.1); Sodium Level 142 mmol/L (136-145)
[2020-11-29 07:24] LABS: Partial Thromboplast Time 43.2 Seconds (24.1-36.2)
--- NOTE | 2020-11-29 08:00 | PCM.DC.SUM ---
Providers Date of Admission: 11/28/20 Date of Discharge: 11/29/20 Primary Care Physician: Dr. Alek Knox MD Reason For Visit: STEMI Diagnosis Discharge Diagnosis (1) Stroke/cerebrovascular accident: Status: Chronic Code(s): I63.9 - Cerebral infarction, unspecified (2) Hyperlipidemia: Status: Acute Code(s): E78.5 - Hyperlipidemia, unspecified (3) Smoker: Status: Resolved Code(s): F17.200 - Nicotine dependence, unspecified, uncomplicated Plan: Final diagnosis: #1 Acute STEMI #2 occlusive coronary artery disease with occlusion of the RCA, significant occlusive coronary disease in the LAD and left circumflex #3 cerebrovascular disease #4 essential hypertension #5 hyperlipidemia #6 hypothyroidism Medications at Discharge Home Medications atorvastatin 40 mg PO QHS 30 Days #30 tab 06/23/20 levothyroxine 112 mcg PO DAILY@0600 30 Days #30 tab 06/23/20 metoprolol succinate 50 mg PO DAILY 30 Days #30 tab 06/23/20 acetaminophen [Tylenol] 650 mg PO Q6H PRN PRN #0 tab 11/29/20 aspirin 81 mg PO BREAKFAST #0 tab 11/29/20 losartan 100 mg PO DAILY #0 tab 11/29/20 nitroglycerin 0.4 mg SUBLINGUAL Q5M PRN #25 tab 11/29/20 ticagrelor [Brilinta] 90 mg PO BID #60 tab 11/29/20 Hospital Course Operations None Procedures 2-D Echocardiogram and Cardiac catheterization (With insertion of DONALDO in right coronary artery after PCI) Summary of Care Provided Minutes Spent on Discharge: 32 Hospital Course: This 60-year-old white female presented to the emergency room at [facility] with complaints of intermittent episodes of pain in her neck area. Work-up in the emergency room included an EKG which showed ST segment elevation inferiorly with reciprocal changes, a STEMI team was called and patient received heparin Brilinta aspirin and metoprolol, chest x-ray showed no acute process. Patient was taken to the cardiac catheterization lab and underwent a PCI with DONALDO insertion in the right coronary artery, there was also noted to be occlusive disease in the LAD and circumflex artery but these areas were not stented. Patient was admitted to the ICU after the procedure, echocardiogram showed no evidence of LV impairment. On 11/29/2020, patient was seen and examined: On examination she appeared in good health and spirits, she does not appear to be in any distress. Vital signs as documented. Skin warm and dry and without overt rashes. Neck without JVD, thyroid appears normal, trachea is midline, neck is supple. Lungs clear, normal air movement was noted. Heart exam notable for regular rhythm, normal sounds and absence of murmurs, rubs or gallops. Abdomen unremarkable and without evidence of organomegaly, masses, or abdominal aortic enlargement, bowel sounds are present in all 4 quadrants, no abdominal tenderness was noted. Extremities nonedematous, no cyanosis was noted, no clubbing was noted. Neuro: Cranial nerves II through XII are grossly intact, no focal motor deficits were noted, sensation to light touch and pinprick is intact, motor exam 5/5 throughout. Psych: Patient is alert and oriented x3, she does not appear anxious or depressed, she does not appear agitated. Patient was discharged home in stable condition on 11/29/2020 Weight / BMI Weight Weight: 94.2 kg Body Mass Index (BMI) 36.7 ABG / Lab / Microbiology Data Result Diagrams: 11/29/20 06:45 11/29/20 06:45 D/C Instructions Discharge Diet: No restrictions Please Follow Up With: Sidney Conner MD Meaningful Use Info Meaningful Use Diagnoses (Choose all that apply): AMI AMI/Post PCI/Angioplasty Aspirin given w/in 24hrs of arrival?: Yes ASA at discharge?: Yes Antiplatelet Therapy at Discharge:: Yes Statins at discharge?: Yes Duane/ARB at discharge?: Yes Beta Behzad at discharge?: Yes Done w/ Acute MS measure.: Yes Documented LVEF (%): 55 Discharge Plan Admission Admit Date/Time: 11/28/20 14:50 Primary Reason for Your Visit: acute MS Attending Provider: Ranjeet Beaver Primary Care Provider: Alek Knox Chi Discharge Orders/Prescriptions Prescriptions: New acetaminophen [Tylenol] 325 mg Tablet 650 mg PO Q6H PRN PRN (Reason: Pain Score 1-10/Temp > 100.7 F) Qty: 0 RF: 0 aspirin 81 mg Tablet,Delayed Release (Dr/Ec) 81 mg PO BREAKFAST Qty: 0 RF: 0 nitroglycerin 0.4 mg Tablet, Sublingual 0.4 mg sublingual Q5M PRN (Reason: Cardiac/Chest Pain) Qty: 25 RF: 0 Brilinta 90 mg Tablet 90 mg PO BID Qty: 60 RF: 0 Continued atorvastatin 40 mg Tablet 40 mg PO QHS 30 Days Qty: 30 RF: 0 metoprolol succinate 50 mg Tablet Extended Release 24 Hr 50 mg PO DAILY 30 Days Qty: 30 RF: 0 levothyroxine 112 mcg Tablet 112 mcg PO DAILY@0600 30 Days Qty: 30 RF: 0 losartan 100 mg Tablet 100 mg PO DAILY Qty: 0 RF: 0 Discontinued aspirin 81 mg Tablet 81 mg PO DAILY RF: 0 acetaminophen [Tylenol] 325 mg Tablet 650 mg PO Q4H PRN PRN (Reason: Pain Score 1-10) Qty: 120 RF: 0 clopidogrel 75 mg Tablet 75 mg PO DAILY 30 Days Qty: 30 RF: 0 potassium chloride [Klor-Con M20] 20 mEq Tablet,Er Particles/Crystals 20 meq PO DAILYCM 30 Days Qty: 30 RF: 0 nifedipine 60 mg Tablet Extended Release 24hr 60 mg PO DAILY 30 Days Qty: 30 RF: 0 aspirin 81 mg Tablet,Chewable 81 mg PO DAILY@0800 Qty: 30 RF: 0 losartan 100 mg Tablet 100 mg PO DAILY 30 Days Qty: 30 RF: 0 Referrals / Follow Up: Sidney Conner MD [STAFF PHYSICIAN] - 12/14/20 3:30 pm (Your appointment will be with Prince Mcclendon the [employer]CH[employer]) Alek Knox Chi, MD [Primary Care Provider] - 12/05/20 11:20 am Disposition Disposition (needs filled in before D/C Order can be placed): Home, Self Care Charges/Coding Visit Charges Inpatient E&M: 96100 Disch Hosp
[2020-11-29] MEDS: Aspirin E.C. 81 MG Tablet PO (08:04)
[2020-11-29] MEDS: Carvedilol 3.125 MG TABLET PO (08:04)
[2020-11-29] MEDS: Lisinopril 5 MG Tablet PO (08:04)
[2020-11-29] MEDS: TICAGRELOR 90 MG TABLET PO (08:04)
--- NOTE | 2020-11-29 10:00 | EKG12_ITS ---
Test Reason : POST PCI Blood Pressure : / mmHG Vent. Rate : 095 BPM Atrial Rate : 095 BPM P-R Int : 136 ms QRS Dur : 094 ms QT Int : 394 ms P-R-T Axes : 071 000 132 degrees QTc Int : 495 ms Normal sinus rhythm Inferior-posterior infarct , recent Abnormal ECG Confirmed by FRANCISCA CHAVEZ, BOB ([id number]), news copy editor RAJINDER KOCH ([id number]) on 11/29/2020 1:35:20 PM Referred By: Valeriy Laura Confirmed By:BOB ESPINOSA MD
--- NOTE | 2020-11-29 10:24 | PCM.DC ---
Discharge Instructions Diet Discharge Diet: No restrictions Activity Discharge Activity: Return to Normal Activity Lifting Restrictions: no lifting above 10 pounds until your followup with cardiology Follow Up Care Test Results: Test results from this visit will be discussed in further detail at your follow-up appointment, if applicable. Discharge Plan Admission Admit Date/Time: 11/28/20 14:50 Primary Reason for Your Visit: acute VT Attending Provider: Ranjeet Beaver Primary Care Provider: Alek Knox Chi Discharge Orders/Prescriptions Prescriptions: New acetaminophen [Tylenol] 325 mg Tablet 650 mg PO Q6H PRN PRN (Reason: Pain Score 1-10/Temp > 100.7 F) Qty: 0 RF: 0 aspirin 81 mg Tablet,Delayed Release (Dr/Ec) 81 mg PO BREAKFAST Qty: 0 RF: 0 nitroglycerin 0.4 mg Tablet, Sublingual 0.4 mg sublingual Q5M PRN (Reason: Cardiac/Chest Pain) Qty: 25 RF: 0 Brilinta 90 mg Tablet 90 mg PO BID Qty: 60 RF: 0 Continued levothyroxine 112 mcg Tablet 112 mcg PO DAILY RF: 0 atorvastatin 40 mg Tablet 40 mg PO QHS 30 Days Qty: 30 RF: 0 metoprolol succinate 50 mg Tablet Extended Release 24 Hr 50 mg PO DAILY 30 Days Qty: 30 RF: 0 levothyroxine 112 mcg Tablet 112 mcg PO DAILY@0600 30 Days Qty: 30 RF: 0 losartan 100 mg Tablet 100 mg PO DAILY Qty: 0 RF: 0 Discontinued aspirin 81 mg Tablet 81 mg PO DAILY RF: 0 acetaminophen [Tylenol] 325 mg Tablet 650 mg PO Q4H PRN PRN (Reason: Pain Score 1-10) Qty: 120 RF: 0 clopidogrel 75 mg Tablet 75 mg PO DAILY 30 Days Qty: 30 RF: 0 potassium chloride [Klor-Con M20] 20 mEq Tablet,Er Particles/Crystals 20 meq PO DAILYCM 30 Days Qty: 30 RF: 0 nifedipine 60 mg Tablet Extended Release 24hr 60 mg PO DAILY 30 Days Qty: 30 RF: 0 aspirin 81 mg Tablet,Chewable 81 mg PO DAILY@0800 Qty: 30 RF: 0 losartan 100 mg Tablet 100 mg PO DAILY 30 Days Qty: 30 RF: 0 Referrals / Follow Up: Sidney Conner MD [STAFF PHYSICIAN] - See Referral Note (within 2-4 weeks) Alek Knox Chi, MD [Primary Care Provider] - Within 1 Week Disposition Disposition (needs filled in before D/C Order can be placed): Home, Self Care
--- NOTE | 2020-11-29 11:50 | CASEMGMT ---
RN MCKAYLA Face to Face with patient for initial transition planning/care coordination assessment. RN CM introduced self and role at [facility]. Patient lying in bed, alert and oriented. Patient willing to participate in assessment and is able to answer all questions appropriately. Care providers, pharmacy, and demographics verified. Patient wishes to discharge home, denies need for home health at this time. Patient states he has no further needs or concerns at this time. CM to follow for discharge planning needs that may arise. PCP:Abilio Specialists: none Preferred Pharmacy: [facility] Insurance: [employer] for in Prescription Benefit: yes, Brilinta savings card provided to patient Living Will/HPOA: none LNOK: Living Arrangements: Patient lives with in a single story home with 3 steps and railing to enter the home. Patient is independent at home. Transportation: self/ DME/HHC: Patient states she has shower chair and grab bars. Patient denies previous HHC. Disposition Plan: Patient to discharge home with family support and follow-up plans in place. Tracy CARRANZA, RN, CM
[2020-11-29 12:53] LABS: Troponin-I HS 55539 pg/mL (3.0-54.0)
--- NOTE | 2020-11-29 13:44 | PN.CARD_ITS ---
Subjective Subjective Patient seen and evaluated today at bedside along with the nursing staff Post PCI and stent of occluded RCA with a clinical diagnosis of ACS Objective Data Vital Signs: Vital Signs Temp Pulse Resp BP Pulse Ox 97.0 F L 72 12 107/62 97 11/29/20 12:00 11/29/20 12:00 11/29/20 12:00 11/29/20 12:00 11/29/20 12:00 Oxygen Delivery Method Room Air Weight: 207 lb 10.807 oz Body Mass Index (BMI) 36.7 Intake & Output: Intake and Output for Last 24 Hours 11/27/20 11/28/20 11/29/20 23:59 23:59 23:59 Intake Total 240 / 277.1 989.32 / 989.32 Output Total 850 / 850 Balance -610 / -572.9 989.32 / 989.32 Lab / Micro Data Result Diagrams: 11/29/20 06:45 11/29/20 06:45 Labs: Laboratory Results - last 24 hr 11/28/20 12:55: Differential Comment COMMENT 11/28/20 15:00: Troponin I High Sens > [id number] H* 11/28/20 18:05: Troponin I High Sens > [id number] H* 11/28/20 18:05: APTT 95.6 H* 11/28/20 18:05: PT 12.6, INR 1.0 11/29/20 00:45: APTT 46.6 H 11/29/20 06:45: WBC 13.6 H, RBC 4.18 L, Hgb 12.4, Hct 37.7, MCV 90.2, MCH 29.7, MCHC 32.9, RDW Std Deviation 48.0 H, RDW Coeff of Siri 14.6, Plt Count 273, MPV 10.3, Immature Gran % (Auto) 0.400, Neut % (Auto) 71.7 H, Lymph % (Auto) 20.9, Sutter % (Auto) 6.5, Eos % (Auto) 0.4, Baso % (Auto) 0.1, Absolute Neuts (auto) 9.7 H, Absolute Lymphs (auto) 2.83, Nucleated RBC % 0 11/29/20 06:45: APTT 43.2 H 11/29/20 06:45: Sodium 142, Potassium 3.5, Chloride 105, Carbon Dioxide 27.0, Anion Gap 10, BUN 24 H, Creatinine 1.05 H, Estim Creat Clear Calc 47.13, Est GFR (MDRD) Af Amer 69, Est GFR (MDRD) Non-Af 57 L, BUN/Creatinine Ratio 22.9 H, Glucose 90, Calcium 8.8 11/29/20 11:25: Troponin I High Sens Cancelled 11/29/20 11:50: Troponin I High Sens [id number] H* Cardiology Labs/Tests 11/28/20 18:05: APTT 95.6 H* 11/28/20 18:05: PT 12.6, INR 1.0 11/29/20 00:45: APTT 46.6 H 11/29/20 06:45: WBC 13.6 H, RBC 4.18 L, Hgb 12.4, Hct 37.7, MCV 90.2, MCH 29.7, MCHC 32.9, Plt Count 273, MPV 10.3, Immature Gran % (Auto) 0.400, Neut % (Auto) 71.7 H, Lymph % (Auto) 20.9, Sutter % (Auto) 6.5, Eos % (Auto) 0.4, Baso % (Auto) 0.1, Absolute Neuts (auto) 9.7 H, Nucleated RBC % 0 11/29/20 06:45: APTT 43.2 H 11/29/20 06:45: Sodium 142, Potassium 3.5, Chloride 105, Carbon Dioxide 27.0, Anion Gap 10, BUN 24 H, Creatinine 1.05 H, Est GFR (MDRD) Af Amer 69, Est GFR (MDRD) Non-Af 57 L, BUN/Creatinine Ratio 22.9 H, Glucose 90, Calcium 8.8 Rhythm: Normal sinus rhythm ECHO: EF 50-55%, mild inferobasal hypokinesia Radiography Diagnostic Testing: Radiology Impression Echocardiogram 11/28/20 15:01 Interpretation Summary The estimated ejection fraction is EF 50-55 %. Mild Infero basal Hypokinesia _ Ordering Physician: Amado Mendez Referring Physician: Valeriy Laura Performed By: Luciano Contreras RCS Physical Exam Narrative Bedside evaluation and exam Patient alert orientated x3 Not in acute distress Cardiovascular lamination; monitor technician normal sinus rhythm S1-S2 regular, no murmur no systolic or diastolic murmur, no pericardial rub, no gallop present Chest examination; Normal bilateral breath entry Abdomen; Soft not distended Examination of lower extremity; No lower extremity edema no clubbing or cyanosis This patient had stroke with left-sided hemiparesis which improved significantly Risk Stratification Risk Stratification Applicable: Yes Age >/= 65: No >/= 3 CAD Risk Factors (HTN, HLD, DM, family hx of CAD, or current smoker): Yes Aspirin Use in the Past 7 Days: Yes Severe Angina (>/= episodes in 24 hours): Yes EKG ST Changes >/= 0.5mm: Yes Positive Cardiac Marker: Yes NATALYA Risk Stratification Score: 5 NATALYA % Risk: 25% Risk Assessment & Plan Assessment/Plan (1) Stroke/cerebrovascular accident: (2) Left hemiparesis: (3) Right-sided lacunar infarction: (4) Hypertension: (5) Hyperlipidemia: (6) Hypothyroidism: (7) Smoker: (8) ACS (acute coronary syndrome): PLAN: 60-year-old patient with history of jaw pain, presented to the ER at [facility] where she had significantly abnormal EKG With a clinical diagnosis of ACS she has occluded RCA underwent PCI and stent using drug-eluting stent/Orsiro Her LV function overall mild LV systolic dysfunction ejection fraction of 50- 55%, inferobasal hypokinesia She is stable clinically no symptoms of chest pain. monitor technician showed und erlying normal sinus and hemodynamically been stable In addition the high sensitive troponin level was trending down. I reviewed the cardiac catheterization findings in detail with the primary district customs director Dr. Conner. Patient had a focal lesion in the proximal LAD and a diffuse atherosclerosis of the mid LAD in addition to high-grade stenosis involving the apical distal portion of the LAD also had a focal lesion involving a moderate size circumflex She had a history of a stroke with left hemiparesis and right-sided lacunar infarct with multiple other comorbidities hypertension hyperlipidemia hy pothyroidism. Cardiac assessment and plan; 1. Patient to continue on DAPT Brilinta/low-dose aspirin for 1 year 2. She will be high risk patient for cardiac catheterization with a history of a stroke and also the distal targets in the LAD still had significant atherosclerosis therefore we discussed the findings in detail myself and Dr. Conner and will plan for PCI of LAD and the left circumflex. There is disease involving the distal LAD/apical in addition to the complexity of the patient history and risk of stroke. It is a complex lesion patient advised compliance with the medication due to the risk of in-stent thrombosis. 3. Phase 1 cardiac rehab can be started following PCI of the LAD and the left circumflex/following complete myocardial revascularization. 4. Patient will be on high-dose statin atorvastatin 40 mg 5. We will continue losartan and I added beta-josep carvedilol to the current treatment. Valeriy Laura MD,FACC,[facility]
== END 2020-11-29 16:00 | disposition home or self-care (01) | DRG 247 ==
LOC: ED 13:20 → ICU 15:04
PROVIDERS: Admitting Provider Internal Medicine Interventional Cardiology; Emergency Provider Emergency Medicine; PCP Family Medicine Geriatric Medicine; Referring Provider Internal Medicine Interventional Cardiology; Visit Provider Internal Medicine
DX: I21.11 ST elevation (STEMI) myocardial infarction involving right coronary artery (principal); I69.354 Hemiplegia and hemiparesis following cerebral infarction affecting left non-dominant side; I25.10 Atherosclerotic heart disease of native coronary artery without angina pectoris; I24.9 Acute ischemic heart disease, unspecified; I12.9 Hypertensive chronic kidney disease with stage 1 through stage 4 chronic kidney disease, or unspecified chronic kidney disease; N18.31 Chronic kidney disease, stage 3a; E78.5 Hyperlipidemia, unspecified; E06.3 Autoimmune thyroiditis; E66.9 Obesity, unspecified; F17.200 Nicotine dependence, unspecified, uncomplicated; Z68.36 Body mass index [BMI] 36.0-36.9, adult; Z79.82 Long term (current) use of aspirin; Z79.02 Long term (current) use of antithrombotics/antiplatelets; Z79.899 Other long term (current) drug therapy
CPT/HCPCS: 71045; 80048; 80053; 84484; 85025; 85610; 85730; 92928; 93005; 93306; 93458; 97162; 97166; 97802; 99152; 99153; 99284; 99406; C1874; J7030; Q9957; Q9967; A4216; C1725; C1769; C1887; C1894; C9600; J1940; J2405; J3490

== ENCOUNTER → 2020-12-08 10:19 | Outpatient (CLI) | payer OTHER, SELFPAY | PROVIDERS: PCP Family Medicine Geriatric Medicine; Referring Provider Internal Medicine Cardiovascular Disease; Visit Provider Internal Medicine Cardiovascular Disease | DX: M79.601 Pain in right arm (principal); R09.89 Other specified symptoms and signs involving the circulatory and respiratory systems | CPT/HCPCS: 93931 ==

== ENCOUNTER → 2021-01-01 15:54 | Outpatient (CLI) | payer OTHER, SELFPAY ==
[2021-01-01 17:45] LABS: Absolute Neutrophil Count 6.5 X10^3/uL (2.0-7.7); Basophil# 0.04 X10^3/uL; Basophil% 0.4 % (0-1); Eosinophil# 0.05 X10^3/uL; Eosinophils% 0.5 % (0-5); Hematocrit 38.6 % (37-47); Hemoglobin 12.3 g/dL (12.0-15.0); Lymphocyte % 26.8 % (19-41); Mean Corp Hgb Conc 31.9 g/dL (32-36); Mean Corpuscular Hgb 29.4 pg (27.0-32.0); Mean Corpuscular Volume 92.1 fL (81-99); Mean Platelet Vol. 11.6 fl (6.2-12.0); Monocyte# 0.72 X10^3/uL; Monocyte% 7.1 % (0-10); NRBC Flagged by Analyzer 0 % (0-5); Neutrophil # 6.52 X10^3/uL (2.7-7.7); Neutrophil % 64.8 % (47-70); Platelet Count 297 K/mm3 (150-450); RBC Distribution Width CV 14.6 % (11.6-14.6); RBC Distribution Width SD 49.5 fl (35.1-43.9); Red Blood Count 4.19 M/mm3 (4.2-5.4); White Blood Count 10.1 K/mm3 (4.4-11.0)
[2021-01-01 18:52] LABS: AST(SGOT) 17 U/L (15-37); Alanine Aminotransfer ALT/SGPT 38 U/L (13-56); Albumin, Serum 3.8 g/dL (3.2-5.0); Alkaline Phosphatase 142 U/L (45-117); Anion Gap 11 (5-15); BUN 23 mg/dL (7-18); BUN/Creat Ratio 25.6 RATIO (10-20); Calcium,Total 9.3 mg/dL (8.5-10.1); Chloride 103 mmol/L (98-107); EST Glomerular Filtration Rate 68 mL/min (>60); Est Glom Filt Rate - Afr Amer 82 mL/min (>60); Glucose 105 mg/dL (74-106); Protein, Total 7.8 g/dL (6.4-8.2); Sodium Level 136 mmol/L (136-145); Thyroid Stim Hormone (TSH) 0.17 uIU/mL (0.358-3.74)
== END ==
PROVIDERS: PCP Family Medicine Geriatric Medicine; Visit Provider Family Medicine Geriatric Medicine
DX: I10 Essential (primary) hypertension (principal)
CPT/HCPCS: 36415; 80053; 84443; 85025

== ENCOUNTER 2021-01-10 12:20 | Observation (INO) | payer OTHER, SELFPAY ==
[2021-01-09 07:20] VITALS: BMI 36.5
[2021-01-10] VITALS (14 sets, daily range): BP systolic 105–151; BP diastolic 60–86; PULSE 71–90; RESP 16–18; TEMP 36.5–36.9; O2SAT 95–100; BMI 36.5
[2021-01-10 09:19] LABS: Anion Gap 11 (5-15); BUN 25 mg/dL (7-18); BUN/Creat Ratio 22.9 RATIO (10-20); Calcium,Total 9.6 mg/dL (8.5-10.1); Chloride 103 mmol/L (98-107); Creatinine, Serum 1.09 mg/dL (0.55-1.02); EST Glomerular Filtration Rate 54 mL/min (>60); Est Glom Filt Rate - Afr Amer 66 mL/min (>60); Glucose 123 mg/dL (74-106); Potassium 3.6 mmol/L (3.5-5.1); Sodium Level 139 mmol/L (136-145)
--- NOTE | 2021-01-10 12:23 | CRPHASE1_ITS ---
Patient Communication Former Patient:: Phase I PHII Cardiac Rehab Discussed with Patient:: Yes Guide to Cardiac Rehab Given to Patient:: No - Given to Pt following initial PCI in 2020. Cardiac Rehab Facility Choice List Given to Patient:: Yes Choice Program [facility] CR PHII:: Communication Given to CR Choice Program Other:: Communication Given to CR Tape Machine Tailer:: Valeriy Laura Phase II Cardiac Rehab:: Yes Sessions:: 36 sessions - 3 days/wk, 12 weeks Cardiac Rehabilitation Info Cardiac Rehabilitation Program Information: Cardiac Rehabilitation is important for patients like you who are recovering from a heart problem. Cardiac rehabilitation programs are recognized as integral to the continued care of the patient with coronary heart disease. The cardiac rehabilitation program is designed to optimize a patient's physical, psychological, and social functioning. Health housekeeper caregiver work in cardiac rehabilitation programs and assist you with getting the treatments you need to get stronger and healthier - like exercise, healthy eating habits, and medications. Cardiac rehabilitation has been show to help people with heart problems live longer and have better life enjoyment than people who do not go to cardiac rehabilitation. Please contact the Cardiac Rehabilitation Program at [facility] at in two weeks if you have not heard from them.
--- NOTE | 2021-01-10 12:23 | PCIREPORT_ITS ---
PCI Cardiac Cath Report PCI Report: Procedure performed: 1. Successful PCI of complex mid and proximal LAD stenosis, mid LAD diffuse 90% proximal LAD 70% with predilatation followed by placement of a drug-eluting stent 2.5 x 35 mm +2.5 x 26 +2.5 x 18 mm DONALDO/Orsiro postdilated with 2.75 x 20 mm NC emerge MR balloon With reduction of stenosis to 0%. Preprocedure NATALYA III flow, postprocedure maintain NATALYA III flow in the LAD 2. Successful PCI of focal calcified mid left circumflex of 70% with predilatation using 2.5 x 50 mm balloon followed by placement of a drug-eluting stent 2.5 x 80 mm, postdilated with 2.75 x 12 mm NC Emerge balloon With reduction of stenosis from 70% to 0%, preprocedure NATALYA III flow postprocedure maintain NATALYA-3 flow in the left circumflex artery 3. 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 This is a elective PCI procedure. Medication used in the Powerhouse Helper; Heparin a total of 8000 units of heparin was given and ACT level was acceptable around 2623 200 mcg intracoronary nitroglycerin. Access; Under fluoroscopic guidance 6 Croatian sheath placed in the right common femoral artery Procedure in detail; Patient brought to the Powerhouse Helper in fasting state, right common femoral artery area prepped and draped in the sterile fashion Patient already taken her Brilinta and aspirin for the day We proceed with a 6 Croatian JL4 guide advanced ascending aorta, cannulated the left main without difficulty, following this we will proceed with the 0.014 BMW universal straight 190 cm, cross lesion in the proximal mid and the wire was placed and distal LAD. Then will proceed with a predilatation initially using 2 x 15mm emerge MR balloon dilated mid LAD as well as the proximal LAD and then will proceed with placement of drug-eluting stent 2.5 x 35 overlap with 2.5 x 26 and 2.5 x 18 This was postdilated using 2.75 x 20 mm NC balloon and achieved an excellent result Following this the same wire was used to cross the lesion in the left circumflex predilated the lesion using 2.5 x 50 mm followed by placement of a drug-eluting stent 2.5 x 18 mm and postdilated with 2.75 x 12 mm and achieve an excellent result in the left anterior descending artery and the left circumflex Following this selective right common femoral artery angiography obtained and a Perclose used to close the right common femoral artery arteriotomy site with no complication in the Powerhouse Helper. Recommendation; #1 patient will stay over the night for observation in the progressive care unit 2. We will continue DAPT/dual antiplatelet with Brilinta 90 mg twice daily/low- dose aspirin 81 mg daily for 1 year 3. Patient scheduled for phase 1 cardiac rehab program at [facility] 4. Patient will follow up with the primary cat cracker operator Dr. Conner. Valeriy Laura MD,[facility]
--- NOTE | 2021-01-10 12:24 | CRPH1.INSTRU ---
General Education CAD and cardiac anatomy and function:: Patient communicates acknowledgment, Family communicates acknowledgment Explanation of diagnoses and procedures:: Patient communicates acknowledgment, Family communicates acknowledgment Sign/Symptoms of TN:: Patient communicates acknowledgment, Family communicates acknowledgment Antiplatelet therapy: Patient communicates acknowledgment, Family communicates acknowledgment Proper use of NTG-SL: Patient communicates acknowledgment, Family communicates acknowledgment Emergency procedures and activation of EMS: Patient communicates acknowledgment, Family communicates acknowledgment Compliance of all prescribed medications: Patient communicates acknowledgment, Family communicates acknowledgment - Phase 1 cardiac rehab completed in November 2020. RN reviewed virk information from CR booklet.
--- NOTE | 2021-01-10 12:30 | EKG12_ITS ---
Test Reason : POST PCI Blood Pressure : / mmHG Vent. Rate : 068 BPM Atrial Rate : 075 BPM P-R Int : 124 ms QRS Dur : 088 ms QT Int : 434 ms P-R-T Axes : 058 -23 -52 degrees QTc Int : 461 ms Sinus rhythm with marked sinus arrhythmia Inferior infarct (cited on or before 28-NOV-2020) Abnormal ECG Confirmed by FRANCISCA CHAVEZ, BOB ([id number]), assignment desk editor RAJINDER KOCH ([id number]) on 01/12/2021 7:24:01 AM Referred By: HELDER Confirmed By:BOB ESPINOSA MD
[2021-01-10] MEDS: 0.9% Normal Saline 1,000 ML 75 ML IV (12:53)
[2021-01-10] MEDS: 0.9% Saline Lock 10 ML Syringe IV (12:53)
--- NOTE | 2021-01-10 15:34 | CASEMGMT ---
WINDY BLOCK NOTE: Pt had elective heart cath done today w/PCI. Noted pt will be going home on Brilinta. WINDY BLOCK to room. Introduced self and role of WINDY BLOCK. Per pt, she is already on Brilinta and her insurance covers it @ 100%. Pt denies having any needs or concerns w/going home @ discharge. Dick CARRANZA RN, CM
[2021-01-10] MEDS: Potassium Chloride Oral Tablet 20 MEQ PO (17:39)
[2021-01-10] MEDS: Atorvastatin Calcium 40 MG Tablet PO (20:21)
[2021-01-10] MEDS: amLODIPine 5 MG Tablet PO (20:21)
[2021-01-10] MEDS: TICAGRELOR 90 MG TABLET PO (20:22)
[2021-01-11 02:00] VITALS: PULSE 74
[2021-01-11 03:27] VITALS: BP 129/67; PULSE 74; RESP 16; TEMP 36.9; O2SAT 96
[2021-01-11] MEDS: Levothyroxine 112 MCG Tablet PO (05:29)
[2021-01-11 06:07] LABS: Hematocrit 32.2 % (37-47); Hemoglobin 10.4 g/dL (12.0-15.0); Mean Corp Hgb Conc 32.3 g/dL (32-36); Mean Corpuscular Hgb 30.4 pg (27.0-32.0); Mean Corpuscular Volume 94.2 fL (81-99); Mean Platelet Vol. 11.4 fl (6.2-12.0); Platelet Count 285 K/mm3 (150-450); RBC Distribution Width SD 52.5 fl (35.1-43.9); Red Blood Count 3.42 M/mm3 (4.2-5.4); White Blood Count 9.6 K/mm3 (4.4-11.0)
[2021-01-11 07:00] VITALS: PULSE 80
--- NOTE | 2021-01-11 07:39 | PCS.PANDOC ---
PANDEMIC DOCUMENTATION INITIATED: Date: 10/02/2020 Time: 190
[2021-01-11 08:07] LABS: ALB/GLOB Ratio 0.8 RATIO (0.9-2.4); AST(SGOT) 27 U/L (15-37); Alanine Aminotransfer ALT/SGPT 27 U/L (13-56); Albumin, Serum 2.8 g/dL (3.2-5.0); Alkaline Phosphatase 120 U/L (45-117); Anion Gap 7 (5-15); BUN 26 mg/dL (7-18); BUN/Creat Ratio 27.2 RATIO (10-20); Calcium,Total 8.9 mg/dL (8.5-10.1); Chloride 107 mmol/L (98-107); Creatinine, Serum 0.96 mg/dL (0.55-1.02); EST Glomerular Filtration Rate 63 mL/min (>60); Est Glom Filt Rate - Afr Amer 76 mL/min (>60); Estimated Creatinine Clearance 51.55 ml/min; Globulin 3.4 g/dL (2.2-4.2); Glucose 89 mg/dL (74-106); Potassium 3.8 mmol/L (3.5-5.1); Protein, Total 6.2 g/dL (6.4-8.2); Sodium Level 138 mmol/L (136-145)
[2021-01-11 08:10] VITALS: BP 134/69; PULSE 93; RESP 18; TEMP 36.7; O2SAT 97
[2021-01-11] MEDS: Aspirin E.C. 81 MG Tablet PO (08:19)
[2021-01-11] MEDS: TICAGRELOR 90 MG TABLET PO (08:20)
[2021-01-11] MEDS: Potassium Chloride Oral Tablet 20 MEQ PO (08:20)
[2021-01-11] MEDS: Citalopram 10 MG Tablet PO (08:20)
[2021-01-11] MEDS: Losartan Potassium 100 MG Tablet PO (08:21)
[2021-01-11] MEDS: hydroCHLOROthiazide 25 MG Tablet PO (08:21)
[2021-01-11] MEDS: amLODIPine 5 MG Tablet PO (08:21)
[2021-01-11 08:43] VITALS: O2SAT 97
--- NOTE | 2021-01-11 10:23 | PCM.DC ---
Discharge Instructions Diet Discharge Diet: Low fat / Low cholesterol Activity Discharge Activity: Return to Normal Activity May resume sexual activity in: No Restrictions Weight Bearing Status: Full weight bearing Dressing / Incision Call your doctor if your incision/area has: Increased Pain/ Swelling Call your doctor if you observe: Dizziness and Chest pain Change Dressing in: 2 days Follow Up Care Please Follow Up With: Sidney Conner MD When: 2 weeks Test Results: Test results from this visit will be discussed in further detail at your follow-up appointment, if applicable. Discharge Plan Admission Admit Date/Time: 01/10/21 12:20 Primary Reason for Your Visit: cad Attending Provider: Valeriy Laura Primary Care Provider: Alek Knox Chi Discharge Orders/Prescriptions Prescriptions: Continued Brilinta 90 mg tablet 90 mg PO BID Qty: 180 RF: 3 amlodipine 5 mg tablet 5 mg PO BID Qty: 60 RF: 11 citalopram [Celexa] 10 mg tablet 20 mg PO QHS RF: 0 atorvastatin 40 mg Tablet 40 mg PO QHS 30 Days Qty: 30 RF: 0 metoprolol succinate 50 mg Tablet Extended Release 24 Hr 50 mg PO DAILY 30 Days Qty: 30 RF: 0 levothyroxine 112 mcg Tablet 112 mcg PO DAILY@0600 30 Days Qty: 30 RF: 0 acetaminophen [Tylenol] 325 mg Tablet 650 mg PO Q6H PRN PRN (Reason: Pain Score 1-10/Temp > 100.7 F) Qty: 0 RF: 0 aspirin 81 mg Tablet,Delayed Release (Dr/Ec) 81 mg PO BREAKFAST Qty: 0 RF: 0 nitroglycerin 0.4 mg Tablet, Sublingual 0.4 mg sublingual Q5M PRN (Reason: Cardiac/Chest Pain) Qty: 25 RF: 0 losartan 100 mg Tablet 100 mg PO DAILY Qty: 0 RF: 0 hydrochlorothiazide 25 mg tablet 25 mg PO DAILY Qty: 30 RF: 11 potassium chloride 20 mEq tablet extended release 20 meq PO BID Qty: 60 RF: 11 Referrals / Follow Up: Alek Knox Chi, MD [Primary Care Provider] - Disposition Disposition (needs filled in before D/C Order can be placed): Home, Self Care
--- NOTE | 2021-01-11 10:28 | DS.PCM_ITS ---
Providers Date of Admission: 01/10/21 Primary Care Physician: Dr. Alek Knox MD Reason For Visit: STENT PLACEMENT BY Medications at Discharge Home Medications atorvastatin 40 mg PO QHS 30 Days #30 tab 06/23/20 levothyroxine 112 mcg PO DAILY@0600 30 Days #30 tab 06/23/20 metoprolol succinate 50 mg PO DAILY 30 Days #30 tab 06/23/20 acetaminophen [Tylenol] 650 mg PO Q6H PRN PRN #0 tab 11/29/20 aspirin 81 mg PO BREAKFAST #0 tab 11/29/20 losartan 100 mg PO DAILY #0 tab 11/29/20 nitroglycerin 0.4 mg SUBLINGUAL Q5M PRN #25 tab 11/29/20 citalopram 10 mg tablet 20 mg PO QHS 12/08/20 amlodipine 5 mg tablet 5 mg PO BID #60 tab 12/14/20 ticagrelor 90 mg tablet 90 mg PO BID #180 tab 12/14/20 hydrochlorothiazide 25 mg tablet 25 mg PO DAILY #30 tab 12/19/20 potassium chloride 20 mEq tablet,extended release 20 meq PO BID #60 tab 01/03/21 Hospital Course Procedures Cardiac catheterization Summary of Care Provided Minutes Spent on Discharge: 30 Physical Exam Narrative Patient seen and evaluated today at bedside along with the nursing staff She is alert orientated x3 Cardiovascular examination cardiac telemetry revealed underlying normal sinus rhythm Cardiac exam S1-S2 regular, no murmur no systolic or diastolic murmur No pericardial rub no gallop rhythm Chest examination clear to auscultation bilateral Right common femoral artery site is normal peripheral pulses including dorsalis pedis and posterior tibial palpable Leg examination of the abdomen is soft Examination Central nervous system no focal logical deficit Rest of the physical exam is unremarkable. Weight / BMI Weight Weight: 207 lb 7.28 oz Body Mass Index (BMI) 36.5 ABG / Lab / Microbiology Data Result Diagrams: 01/11/21 05:14 01/11/21 05:14 Laboratory: Laboratory Results - last 24 hr 01/11/21 05:14: WBC 9.6, RBC 3.42 L, Hgb 10.4 L, Hct 32.2 L, MCV 94.2, MCH 30.4, MCHC 32.3, RDW Std Deviation 52.5 H, RDW Coeff of Siri 15.0 H, Plt Count 285, MPV 11.4 01/11/21 05:14: Sodium 138, Potassium 3.8, Chloride 107, Carbon Dioxide 24.0, Anion Gap 7, BUN 26 H, Creatinine 0.96, Estim Creat Clear Calc 51.55, Est GFR (MDRD) Af Amer 76, Est GFR (MDRD) Non-Af 63, BUN/Creatinine Ratio 27.2 H, Glucose 89, Calcium 8.9, Total Bilirubin 0.60, AST 27, ALT 27, Alkaline Phosphatase 120 H, Total Protein 6.2 L, Albumin 2.8 L, Globulin 3.4, Albumin/Gl obulin Ratio 0.8 L D/C Instructions Discharge Diet: Low fat / Low cholesterol May resume sexual activity in: No Restrictions Weight Bearing Status: Full weight bearing Call your doctor if your incision/area has: Increased Pain/ Swelling Call your doctor if you observe: Dizziness and Chest pain Please Follow Up With: Sidney Conner MD When: 2 weeks Meaningful Use Info Meaningful Use Diagnoses (Choose all that apply): None applicable Discharge Plan Admission Admit Date/Time: 01/10/21 12:20 Primary Reason for Your Visit: cad Attending Provider: Valeriy Laura Primary Care Provider: Alek Knox Chi Discharge Orders/Prescriptions Prescriptions: Continued Brilinta 90 mg tablet 90 mg PO BID Qty: 180 RF: 3 amlodipine 5 mg tablet 5 mg PO BID Qty: 60 RF: 11 citalopram [Celexa] 10 mg tablet 20 mg PO QHS RF: 0 atorvastatin 40 mg Tablet 40 mg PO QHS 30 Days Qty: 30 RF: 0 metoprolol succinate 50 mg Tablet Extended Release 24 Hr 50 mg PO DAILY 30 Days Qty: 30 RF: 0 levothyroxine 112 mcg Tablet 112 mcg PO DAILY@0600 30 Days Qty: 30 RF: 0 acetaminophen [Tylenol] 325 mg Tablet 650 mg PO Q6H PRN PRN (Reason: Pain Score 1-10/Temp > 100.7 F) Qty: 0 RF: 0 aspirin 81 mg Tablet,Delayed Release (Dr/Ec) 81 mg PO BREAKFAST Qty: 0 RF: 0 nitroglycerin 0.4 mg Tablet, Sublingual 0.4 mg sublingual Q5M PRN (Reason: Cardiac/Chest Pain) Qty: 25 RF: 0 losartan 100 mg Tablet 100 mg PO DAILY Qty: 0 RF: 0 hydrochlorothiazide 25 mg tablet 25 mg PO DAILY Qty: 30 RF: 11 potassium chloride 20 mEq tablet extended release 20 meq PO BID Qty: 60 RF: 11 Referrals / Follow Up: Alek Knox Chi, MD [Primary Care Provider] - Disposition Disposition (needs filled in before D/C Order can be placed): Home, Self Care
[2021-01-11 11:51] VITALS: BP 134/69; PULSE 93; RESP 18; TEMP 36.7; O2SAT 97
--- NOTE | 2021-01-11 12:30 | EKG12_ITS ---
Test Reason : AM EKG Blood Pressure : / mmHG Vent. Rate : 080 BPM Atrial Rate : 080 BPM P-R Int : 122 ms QRS Dur : 090 ms QT Int : 424 ms P-R-T Axes : 054 -07 -40 degrees QTc Int : 489 ms Sinus rhythm with occasional Premature ventricular complexes Inferior infarct , age undetermined Abnormal ECG When compared with ECG of 10-JAN-2021 13:34, MANUAL COMPARISON REQUIRED, DATA IS UNCONFIRMED Confirmed by FRANCISCA CHAVEZ, BOB ([id number]), electronic news gathering editor RAJINDER KOCH ([id number]) on 01/12/2021 11:52:10 AM Referred By: HELDER Confirmed By:BOB ESPINOSA MD
== END 2021-01-11 12:35 | disposition home or self-care (01) ==
LOC: PCU 13:06
PROVIDERS: Admitting Provider Nurse Practitioner Family; PCP Family Medicine Geriatric Medicine; Visit Provider Internal Medicine Interventional Cardiology
DX: I25.10 Atherosclerotic heart disease of native coronary artery without angina pectoris (principal); I10 Essential (primary) hypertension; E78.5 Hyperlipidemia, unspecified; I25.2 Old myocardial infarction; E06.3 Autoimmune thyroiditis; E66.9 Obesity, unspecified; F41.9 Anxiety disorder, unspecified; F32.A Depression, unspecified; I49.8 Other specified cardiac arrhythmias; Z79.82 Long term (current) use of aspirin; Z79.890 Hormone replacement therapy; Z87.891 Personal history of nicotine dependence; Z79.899 Other long term (current) drug therapy; Z95.5 Presence of coronary angioplasty implant and graft; Z68.36 Body mass index [BMI] 36.0-36.9, adult
CPT/HCPCS: 36415; 80048; 80053; 85027; 92928; 93005; 96360; 96361; 97802; 99152; 99153; 99218; C1874; J7030; J7040; Q9967; A4216; C1725; C1760; C1769; C1887; C1894; C9600; G0378

== ENCOUNTER → 2021-02-01 08:37 | Outpatient (CLI) | payer OTHER, SELFPAY ==
--- NOTE | 2021-02-01 08:45 | CR.HP_ITS ---
CR - History & Physical - General Arrival date:: 02/01/21 Arrival time:: 08:36 Date of Referral:: 01/10/21 Date of CR Evaluation:: 02/01/21 Referring Physician: Dr. Sidney Conner Primary Diagnosis: PCI w/coronary stenting - History of Present Cardiac Event Onset Date: Enter Onset Date of cardiac illnesses in Comment field below Acute Myocardial Infarction within 12 months:: Yes - 11/28/2020 STEMI PTCA or coronary stenting:: Yes - 11/28/2020 & 01/10/2021 Were there any complications?: CVA/Stroke June 2020 - Sleep Disorder Evaluation Hx of Sleep Apnea: No Do you snore loudly (louder than talking or can be heard through closed doors)?: No Do you often feel tired/ fatigued/ sleepy during daytime?: Yes Has anyone observed you stop breathing during sleep?: No History of Hypertension (for STOP score): Yes STOP Results: Positive - Medications Home Medications: Ambulatory Orders Medication Instructions Recorded atorvastatin 40 mg PO QHS 30 Days #30 tab 06/23/20 levothyroxine 112 mcg PO DAILY@0600 30 Days #30 06/23/20 tab metoprolol succinate 50 mg PO DAILY 30 Days #30 tab 06/23/20 acetaminophen [Tylenol] 650 mg PO Q6H PRN PRN #0 tab 11/29/20 aspirin 81 mg PO BREAKFAST #0 tab 11/29/20 losartan 100 mg PO DAILY #0 tab 11/29/20 nitroglycerin 0.4 mg SUBLINGUAL Q5M PRN #25 tab 11/29/20 citalopram 10 mg tablet 20 mg PO QHS 12/08/20 amlodipine 5 mg tablet 5 mg PO BID #60 tab 12/14/20 ticagrelor 90 mg tablet 90 mg PO BID #180 tab 12/14/20 hydrochlorothiazide 25 mg tablet 25 mg PO DAILY #30 tab 12/19/20 potassium chloride 20 mEq 20 meq PO BID #60 tab 01/03/21 tablet,extended release - Allergies Allergies/Adverse Reactions: Allergies No Known Allergies Allergy (Verified 01/23/21 09:20) Advanced Directives - Advanced Directives Power of Inventory Control Clerk: No Living Will: No Advance Directives Information Provided: Yes Advance Directives on File: No DNR Order?:: No - MOLST See MOLST form: No Past Medical History - Covid-19 Screening Fever: No Unexplained muscle aches: No Current respiratory symptoms: No Upper respiratory infections symptoms: No Gastro-intestinal symptoms: No [id number]-[id number] symptoms: No Has tested positive for COVID-19 in last 30 days: No Date of testin01/17/21 - Second of two step COVID-19 vaccination Had contact w/person w/symptoms or Covid-19 (+) last 14 days: No Has High Risk Exposures ID'd by Health dept/Inf Control team: No 65 years or older:: No Lives in Assisted Living facility:: No Has a chronic lung disease or moderate to severe asthma:: No Has a serious heart condition:: Yes Immunocompromised:: No Severely obese (Body Mass Index of 40 or higher):: No Diabetic:: No Has chronic kidney disease undergoing dialysis:: No Has liver disease:: No - Past Medical Illness Medical History: Past Medical History (Last Reviewed 01/23/21 @ 08:27 by Flor Hemphill SOFTWARE TEST DEVELOPER, SOFTWARE TEST DEVELOPER-C) Anxiety F41.9 Atherosclerotic heart disease of [place] coronary artery without angina pectoris I25.10 Colon polyps K63.5 Debility R53.81 Depression F32.9 Diverticulosis K57.90 Essential hypertension I10 Former smoker Z87.891 Hypothyroidism E03.9 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, E06.3 Left hemiparesis G81.94 Myocardial infarct I21.9 Non compliance w medication regimen Z91.14 Obesity (BMI 30.0-34.9) E66.9 OCD (obsessive compulsive disorder) F42.9 Right-sided lacunar infarction I63.81 Stroke/cerebrovascular accident I63.9 - Past Surgical History Surgical History: Past Surgical History (Last Reviewed 01/23/21 @ 08:27 by Flor Hemphill NP, SOFTWARE TEST DEVELOPER-C) H/O colonoscopy Z98.890 History of cholecystectomy Z90.49 History of coronary artery stent placement Onset Date: 01/10/21 Z95.5 QQU-UYE-Nkec-Mid RCAb w/ 3.5 x 35 mm overlap with 3.5 x 26 mm Orsiro Stents 11/28/20; AGN-ZVP-Pnke and Mid LAD w/ 2.5 x 35 mm overlap with 2.5 x 26 mm and 2.5 x 18 mm 01/10/21 - Family History Summary Family History: Family History (Last Reviewed 01/23/21 @ 08:27 by Flor Hemphill NP, SOFTWARE TEST DEVELOPER-C) Aunt Hypertension Mother Hypertension Sister Thyroid disorder Other Hyperlipidemia Social History - Smoking History Smoking Status: Former smoker Years Smokin Packs Smoked per Day: 1 Hx Smoking Cessation Date: 06/04/20 - had CVA/stroke quit that day Hx Tobacco Use: Yes Hx Smoking Exposure: Yes - Alcohol Use Alcohol Usage: No - very rare; socially but nothing since being on medications - Substance Abuse Hx Substance Use: No - Occupation Occupation (List type of work in comments):: Unemployed - Hobbies, Recreation, Social Activities Hobbies: Other - crafting, crocheting, knitting etc. Recreational Activities: I am able to engage in most, but not all activities Social Environment - Status Marital Status: - Current Living Arrangements Living Environment:: Spouse - Children How many children do you have?: 4 Do any of your children live nearby?: Yes - Safety Do you feel safe in your surroundings?: Yes - Assistance Do you need any assistance at home?: no Review of Systems - Review of Systems Hints: Right click = Denies (Slash). Left click = Reports ([place]) Review of Present Symptoms: Reports: Shortness of Breath with Exertion - feel liek I get winded easier than normal., Dizziness/Lightheadedness - every now and then when blood pressure is low. Patient is monitoring BPs at home and notices the occurance is related to lower BPs. Will monitor and report to physician., Appetite - Normal - Back to normal now., Appetite - Special Diet - Low fat, low cholesterol, low sodium., Sleep - Normal. Denies: Shortness of Breath at Rest, Angina, Heart Arrhythmia/Irregularities, Sexual Changes - Pain Is Patient Pain Free?: Yes Pain Location: none Pain Level: 0/10 Risk Factor Assessment - Chief Complaint Chief Complaint: Patient is a 60[address] Conner who presentst o cardiac rehab today following a NSTEMI and staged PCI interventions. - Vital Signs Temperature: 97.3 F Respiratory Rate: 16 Pulse Ox: 98 Blood Pressure: 128/81 - Pulse Pulse Rate: 83 Pulse Rhythm: Regular - Hypertension How long have you been treated?: 15 years approximately Blood Pressure Sitting - Left Arm: 128/81 - Stress Stress: Recent - Blood Cholesterol/Lipids Total Cholesterol (mg/dL) Goal = less than 200 mg/dL: 0 - unavailable - Diabetes Nutrition Referral for Diabetes: No - Obesity Height: 5 ft 3 in Weight:: 202 lb Weight in Pounds: 202.0 lbs Weight Source: Standing Scale Body Mass Index (BMI): 35.7 Nutritional Referral for Obesity: Yes - Risk Stratification Risk Guidelines: Lowest Risk: Risk Factor for Smoking, Risk Factor for Dyslipidemia, Risk Factor for Diabetes, Risk Factor for Sedentary Lifestyle, Moderate Risk: Risk Factor for Hypertension - 128/81 on medications still moderate risk, Risk Factor for Depression, Highest Risk: Risk Factor for Obesity - Family History Family History: Family History (Last Reviewed 01/23/21 @ 08:27 by Flor Hemphill SOFTWARE TEST DEVELOPER, SOFTWARE TEST DEVELOPER-C) Aunt Hypertension Mother Hypertension Sister Thyroid disorder Other Hyperlipidemia Motivation - Motivation to Participate On a scale of 1 to 10, how prepared are you to commit to attending program?: 10 What do you see as barriers to successfully being able to complete the program?: no What do you see as the benefits of succesfully completing the program? In other words, what do you hope to get out of participating in the program?: healthier, learnign more about heart disease Are there issues you are dealing with that will interfere with completing the program?: none Do you have a spouse or signficant other, family or friends who will help suppor t you to complete the program?: Yes
--- NOTE | 2021-02-01 08:45 | CR.ITP_ITS ---
Diagnosis - General Information Admitting Diagnosis: Staged PCI w/coronary stent Secondary Diagnosis: Previous stenting following previous MT Personal Learning Style:: Audio/Visual, Written Barriers to Learning: No Barriers Stage of change r/t lifestyle modifications:: Action Gave educational material for:: Treating Heart Disease, Emotions & Heart Disease, Stress Management & Relaxation, Sleep Disorders & Heart Disease, How The Heart Works, What it means to have Heart Disease, How Coronary Artery Disease is Diagnosed, Heart Procedures, What Heart Medications Do, Risk Factors & Modifications, Living an Active Life, Nutrition - Education/Goals Individual Counseling: Initial Assessment: Abnormal Cholesterol Levels, High Blood Pressure, Overweight/Obesity Cardiac Rehabilitation Goals: 1. Maintain the individual as the primary focus of care. 2. To improve the patient's quality of life. 3. Identification of cardiac risk factors and provide cardiac risk factor management. 4. Enhance the psychosocial status of the patient. 5. Reconditioning enough to allow the patient to resume customary activities. 6. Control symptoms of cardiac disease Personal Goals: Initial Assessment: Improve energy level, Participate in home exercise program, Get back to work, or to resume activities faster, Improve knowledge of cardiac disease, Improve muscle strength and endurance, Improve diet and eating habits (eat healthier), Control risk factors (learn risk factor modification) Scale for measuring improvement of personal goals: Enter appropriate number in Comments. 2 = Unchanged. 3 = Slightly Better. 4 = Moderate Improvement. 5 = Met my Goal - Diagnosis & Disease Process Outcomes/Goals: Pt IDs own risk factors & lifestyle modifications by Session 10, Verbalizes symptoms of angina & response by session 3., Pt independently manages Plan/Interventions: Assist Pt to ID & engage in lifestyle modification to reduce CVD risk, Instruct on individual risk factors, Review symptoms of angina & emergency actions, Review secondary diagnosis & identify educational needs. - Safety Referral to Physical Therapy: No Referral to [facility] Case Management: No Fall Risk Assessed:: Yes Assistive Devices:: None Exercise - Initial Assessment - Visit Date of Eval: 02/01/21 Session #:: 0 - Pre-cardiac rehab evaluation Mets: Pre-: >7 METS for 30 minutes by discharge - Physician Prescribed Exercise Modalities: Treadmill, Rower, Airdyne, NuStep Frequency: 3x/week for 12 weeks [36 sessions] Intensity: 60-80% of age predicted maximum heart rate reserve Current METSs:: 3.0 Target Heart Rate:: 133-148 Resting Blood Pressure: 128/81 EKG Type: Normal Sinus Rhythm - Outcomes & Goals Goals:: Verbalizes understanding of THR, RPE & goal METS by session 6, Documents in home exercise log/reports 30 min aerobic 5 day/wk by DC, Demonstrates accurate pulse taking by DC - Intervention & Plan Exercise Program Goals: Instruct on personal THR & RPE, Instruct on MET level & personal MET goal, Instruct on home exercise - Physical Activity Home Exercise Physical Activity - Home Exercise: Safe Exercise, Warm-up, Self-monitoring, Cool-Down, Home Exercise > 30 min Daily, Sitting Time <3 hours/daily - Outcomes & Goals Outcomes/Goals: Demonstrates correct Warm-up/exercise Cool-Down (S3) if = 2.5 METs, Verbalizes symptoms of exercise intolerance by Session 3 (S3), Demonstrate safe equipment use (S3) & follows exercise prescrition (6) - Intervention & Plan Plan/Intervention: Instruct warm-up & cool-down if exercising at > 2 METs, Instruct on symptoms of exercise intolerance & actions to take, Instruct & monitor on saf, Assess intial functional capacity & safety risk Nutrition - Initial Assessment - Program Goals Nutrition Program Goals: LDL <100 optimal. 100 - 129 Near optimal. 130 - 159 Borderline High. 160 - 189 High. Total Cholesterol <200 desirable. 200 - 239 Borderline High. >/= 240 High. HDL < 40 Low >/=60 High. Triglycerides <150 desirable. <199 optimal. VlDL 5 - 40. HgbA1C <7%. BMI <25 Patient has diagnosis of Hyperlipidemia (ICD E78)?: Yes - Visit Date of Assessment:: 02/01/21 Session #:: 0 - Pre-cardiac rehab evaluation - Cholesterol/Lipids Triglycerides (mg/dL): 0 - unavailable Determine presence & major risk factors that modify LDL goal: Cigarette smoking - 10 years , Hypertension or hypertensive medication, Family history of premature CHD in Male < 55 years: female <65 yearsFa, Age men > 45 years; women >/= 55 years Outcomes/Goals: Pt IDs own risk factors & lifestyle modifications by Session 10, Verbalizes symptoms of angina & response by session 3., Pt independently manages Intervention/Plan: Instruct on personal lipid levels & lipid goals/NCEP guidelines, Instruct on cholesterol Referral to dietitian:: Yes - Diabetes (Other Core Measures) Diabetes Type: Not Applicable - Weight Mgt (Other Care) Not Applicable: No Height: 5 ft 3 in Weight:: 202 lb BMI: 35.7 Diagnosis Overweight/Obesity BMI> 30% ICD-10 E66: Yes Diagnosis High BMI/Morbid Obesity BMI> 35% ICD-10 Z68: Yes Outcomes/Goals: Pt sets, maintains & shows weight loss goal & trend during rehab Intervention/Plan: Instruct on ideal BMI & set weight loss goal w/patient, Assist pt to ID & incorporate diet changes for weight loss by S9, Refer to Structured Weight Loss program as appropriate, Encourage goal of using 250- 300dcal per session for weight loss - Healthy Eating Habits Will attend diet classes:: Yes Outcomes/Goals:: Consume diet rich in vegs,fruits,whole grain/high fiber,fish,lean meat, Limit sat/trans fats,cholesterol & added salts & sugars Intervention/Plan:: Assess current eating habits - Education Gave educational materials for:: Healthy eating Nutrition - 30-Day Assessment Nutrition - 60-Day Assessment Nutrition - 90-Day Assessment Nutrition - Final Assessment Medical - Initial Assessment - Visit Date of Eval: 02/01/21 Session #:: 0 - Pre-cardiac rehab evaluation - Medication Compliance Preventative Medication(s):: Aspirin, Ticagrelor/P2Y12 inhibitor, Statin/lipid, Beta josep H/O mental health issues: depression, anxiety, or addiction?: Yes Doesn?t believe in the benefits of treatment?: No Believes medications are unnecessary or harmful?: No Has a concern about medication side effects?: No Expresses concern over the cost of medications?: No Outcomes/Goals: Verbalizes medications,desired effect & common side effects @ DC, Pt self-reports following medication regimen, Keeps card in wallet w/medications listed by DC Interventions/plans: Instruct on medication effects & side effects, Review medication list w/patient every two weeks, Instruct importance of taking meds as ordered & assist problem solving - Tobacco Use Tobacco Use: Non-smoker - Former smoker for 10 years; / Outcomes/Goals: Identify aids/strategies for achieving smoking cessation by session 6 Interventions/plan: Assist pt to develop strategies to achieve/maintain quit date - Hypertension Hypertension Diagnosis:: Hypertension ICD-10 I10 Resting Blood Pressure:: 128/81 [place] [employer] Hypertension Guidelines: [place] [employer] Hypertension Guidelines. Normal BP Less than 120/80. Elevated BP 120/80. Hypertension Stage 1: BP 130-139/80-89. Hypertesnion Stage 2: BP 140 or higher/90 or higher. Hypertension Crisis: BP higher than 180/120 Outcomes/Goals: Able to verbalize/achieve optimal blood pressure <130/80, Incorporates diet changes & exercise for blood pressure control by DC Interventions/plan: Instruct on optimal blood pressure, hypertension & medicati ons, Instruct on effects of sodium, alcohol, stress, exercise &hypertension - Tobacco Cessation Referral Smoking Cessation Referral:: No Individual Education/Counseling:: No Education Schedule Given:: Yes - Online resources and printed work book provided to patient with instruction Medical- 30-Day Assessment Medical- 60-Day Assessment Medical- 90-Day Assessment Medical - Final Assessment Psychosocial - Initial Assess - VIsit Date of Eval: 02/01/21 Session #:: 0 - Pre-cardiac rehab evaluation Not Applicable: No History of previous Mental disease:: Yes History of Emotional Disorders: Anxious, Depression - Psychosocial Test Tool Used:: [employer] QOL Cardiac, PHQ-9 Questionnaire phq-9 Severity: Severity. 1-4 Minimal Depression. 5-9 Mild Depression. 10-14 Moderate Depression. 15-19 Moderately Sever Depression. 20-27 Severe Depression. Rule: - Referral to Behavioral Health PS - Interventions: Yes Attend Stress Management Classes, No Referral to Behavioral Health if PHQ-9 score >9:, No Referral to [facility], No Referral to Physician if PHQ-9 if score is 5-9: - Outcomes/Goals: See list Psychosocial Outcomes/Goals:: ID's personal stressors & 2 strategies to manage stress by discharge - Intervention/Plan: See List Interventions/Plan:: Assess stressors,coping strategies & signs of derpression on admission, Instruct/assist pt to develop coping & personal stress Mgt strategies, Instruct patient to recognize signs & symptoms of depression, Instruct patient to recog Psychosocial - 30-Day Assess Psychosocial - 60-Day Assess Psychosocial - 90-Day Assess Psychosocial - Final Assessmen Patient Health Questionnaire Initial Assessment 1. Little interest or pleasure in doing things: Not at all 2. Feeling down, depressed, or hopeless: Not at all 3. Trouble falling or staying asleep, or sleeping too much: Several days 4. Feeling tired or having little energy: Several days 5. Poor appetite or overeating: Not at all 6. Feeling bad about yourself -- or that you are a failure or have let yourself or your family down: Not at all 7. Trouble concentrating on things, such as reading the newspaper or watching television: Not at all 8. Moving or speaking so slowly that other people could have noticed. Or the opposite - being so fidgety or restless that you have been moving around a lot more than usual: Not at all 9. Thoughts that you would be better off , or of hurting yourself in some way: Not at all How difficult have these problems made it for you to do your work, take care of things at home, or get along with other people?: Somewhat difficult Total Score: 2 FREDERIC-Q SV Test - Statements CAD is a disease of the arteries in the heart: False Examples of risk factors for heart disease: True Angina is chest pain or discomfort: True The benefits of resistance training include: True Eating more meat and dairy products: I Don't Know Anti-platelet medications such as aspirin are important: True The only effective way to manage stress: False An exercise warm-up slowly increases heart rate: True Prepared, processed foods usually have high sodium: True Depression is common after a heart attack: True The statin medications lower cholesterol: True To control blood pressure, lower the amount of sodium: True If someone gets chest discomfort during walking: False Transfats are partially hydrogenated vegetable oils: True Sleep apnea that is not treated increases the risk: I Don't Know To control cholesterol, one should become a vegetarian: False Someone knows if he/she is exercising at the right level: True Diabetes cannot be prevented with exercise & health eating: True Stress is a large risk for heart attack: True A diet that can help lower blood pressure is rich in: True - Total Score Total Correct Responses: 17 Self-Efficacy Initial Assessment We would like to know how confident you are in doing certain activities. Please select your confidence level for:: Select your confidence level for the following using the scale 1-10 where 1 is not at all confident and 10 is totally confident. Your score is the average of all 6 responses. Fatigue: How confident are you that you can keep the fatigue caused by your disease from interfering with the things you want to do? Select Number: 5 Physical Discomfort or Pain: How confident are you that you can keep the physical discomfort or pain of your disease from interfering with the things you want to do? Select Number: 6 Emotional Distress: How confident are you that you can keep the emotional distress caused by your disease from interfering with the things you want to do? Select Number: 8 Other Symptoms or Health Problems: How confident are you that you can keep other symptoms or health problems from interfering with the things you want to do? Select Number: 5 Different Tasks and Activities: How confident are you that you can do the different tasks and activities needed to manage your health condition so as to reduce your need to see a doctor? Select Number: 9 Medication: How confident are you that you can do things other than just taking medication to reduce how much your illness affects your everyday life? Select Number: 10 Total Score:: 7 Nutrition Survey - Nutrition Survey Initial Have you lost >10 lbs over the past 2 months without trying?: No Are you following a special diet at home for diabetes, low fat, or low salt?: Yes Are you interested in meeting with a dietitian for help understanding your diet?: Yes Do you eat less than 3 meals a day?: No Do you eat fatty meats (lares, sausage, ribs, etc), fried foods, desserts, large amounts of salad dressings, margarine, butter, or cheese most days?: No Do you have food allergies? [Enter types in comment field]: No Do you eat in restaurants more than 3 times a week?: No Do you season food with salt, seasoning salt, or garlic salt?: No Do you used canned, boxed, frozen meals, or soups, seasoning packets?: Yes Total Score:: 3
[2021-02-01 09:13] VITALS: BP 128/81; PULSE 83; RESP 16; TEMP 36.3; O2SAT 98; BMI 35.7
[2021-02-01 10:16] VITALS: BP 128/81; BMI 35.7
== END ==
PROVIDERS: PCP Family Medicine Geriatric Medicine; Visit Provider Internal Medicine Cardiovascular Disease
DX: I10 Essential (primary) hypertension (principal); E78.5 Hyperlipidemia, unspecified; E03.8 Other specified hypothyroidism; E06.3 Autoimmune thyroiditis; E66.9 Obesity, unspecified; Z68.35 Body mass index [BMI] 35.0-35.9, adult

== ENCOUNTER 2021-02-07 10:30 | Outpatient (RCR) | payer OTHER, SELFPAY ==
[2021-02-01 10:16] VITALS: BMI 35.7
== END 2021-02-16 23:59 ==
LOC: CR 10:30
PROVIDERS: PCP Family Medicine Geriatric Medicine; Referring Provider Internal Medicine Cardiovascular Disease; Visit Provider Internal Medicine Cardiovascular Disease
DX: I25.10 Atherosclerotic heart disease of native coronary artery without angina pectoris (principal); I10 Essential (primary) hypertension; Z95.5 Presence of coronary angioplasty implant and graft; Z86.73 Personal history of transient ischemic attack (TIA), and cerebral infarction without residual deficits
CPT/HCPCS: 93798

== ENCOUNTER 2021-02-21 11:04 | Outpatient (CLI) | payer OTHER, SELFPAY ==
[2021-02-01 10:16] VITALS: BMI 35.7
== END 2021-02-21 23:59 | disposition short-term general hospital (02) ==
LOC: PSN 11:05
PROVIDERS: PCP Family Medicine Geriatric Medicine; Referring Provider Family Medicine Geriatric Medicine; Visit Provider Family Medicine Geriatric Medicine
DX: R68.83 Chills (without fever) (principal)
CPT/HCPCS: 87635; C9803; U0003; U0005

== ENCOUNTER 2021-03-19 10:30 | Outpatient (RCR) | payer OTHER, SELFPAY ==
[2021-02-01 10:16] VITALS: BMI 35.7
--- NOTE | 2021-03-02 08:04 | PCM.CR.ITP ---
Diagnosis Exercise - 30-day Assessment - Visit Date of Eval: 03/02/21 Session #:: 5 - Physician Prescribed Exercise Modalities: Treadmill, Airdyne, NuStep, SciFit Frequency: 3x/week for 12 weeks [36 sessions] Intensity: 60-80% of age predicted maximum heart rate reserve Current METSs:: 3.5 Target Heart Rate:: 133-148 Current RPE:: 11-13 Maximum Excercise HR:: 106 Resting Blood Pressure: 120/68 Maximum Exercise Blood Pressure: 146/66 EKG Type: NSR to ST w/rare PAC and PVC with T wave inversion. - Outcomes & Goals Goals:: Verbalizes understanding of THR, RPE & goal METS by session 6, Documents in home exercise log/reports 30 min aerobic 5 day/wk by DC, Demonstrates accurate pulse taking by DC, Other additional outcome/goals: see below - Intervention & Plan Exercise Program Goals: Instruct on personal THR & RPE, Instruct on MET level & personal MET goal, Show patient to take own pulse /validate performance until accurate, Instruct on home exercise, Other additional plan/int - 30-day Reassessments 30 day Reassessments:: Progressing - Physical Activity Home Exercise Physical Activity - Home Exercise: Safe Exercise, Warm-up, Self-monitoring, Cool-Down, Home Exercise > 30 min Daily, Sitting Time <3 hours/daily - Outcomes & Goals Outcomes/Goals: Demonstrates correct Warm-up/exercise Cool-Down (S3) if = 2.5 METs, Verbalizes symptoms of exercise intolerance by Session 3 (S3), Demonstrate safe equipment use (S3) & follows exercise prescrition (6), Other: See below - Intervention & Plan Plan/Intervention: Instruct warm-up & cool-down if exercising at > 2 METs, Instruct on symptoms of exercise intolerance & actions to take, Instruct & monitor on saf, Assess intial functional capacity & safety risk, Other See below - 30-day Reassessments 30 day Reassessments:: Progressing Nutrition - Initial Assessment Nutrition - 30-Day Assessment - Program Goals Nutrition Program Goals: LDL <100 optimal. 100 - 129 Near optimal. 130 - 159 Borderline High. 160 - 189 High. Total Cholesterol <200 desirable. 200 - 239 Borderline High. >/= 240 High. HDL < 40 Low >/=60 High. Triglycerides <150 desirable. <199 optimal. VlDL 5 - 40. HgbA1C <7%. BMI <25 Patient has diagnosis of Hyperlipidemia (ICD E78)?: Yes - Visit Date of Assessment:: 03/02/21 Session #:: 5 - Cholesterol/Lipids Determine presence & major risk factors that modify LDL goal: Cigarette smoking, Hypertension or hypertensive medication, Low HDL cholesterol <40 mg/dL*, Family history of premature CHD in Male < 55 years: female <65 yearsFa, Age men > 45 years; women >/= 55 years Outcomes/Goals: Pt IDs own risk factors & lifestyle modifications by Session 10, Verbalizes symptoms of angina & response by session 3., Pt independently manages, Other Additional Outcomes/Goals: Intervention/Plan: Advocate for lipid panel cholesterol medication if applicable, Instruct on personal lipid levels & lipid goals/NCEP guidelines, Instruct on cholesterol, Other additional plan/int Referral to dietitian:: Yes 30-day Reassessments:: Progressing - Diabetes (Other Core Measures) Diabetes Type: Not Applicable - Weight Mgt (Other Care) Height: 5 ft 3 in Weight:: 90.265 kg BMI: 35.2 Diagnosis Overweight/Obesity BMI> 30% ICD-10 E66: Yes Diagnosis High BMI/Morbid Obesity BMI> 35% ICD-10 Z68: Yes Outcomes/Goals: Pt sets, maintains & shows weight loss goal & trend during rehab, Other additional outcomes/goals Intervention/Plan: Instruct on ideal BMI & set weight loss goal w/patient, Assist pt to ID & incorporate diet changes for weight loss by S9, Refer to Structured Weight Loss program as appropriate, Encourage goal of using 250-300dcal per session for weight loss, Other additional plan/interventions 30 day Reassessments:: Progressing - Healthy Eating Habits Will attend diet classes:: Yes Outcomes/Goals:: Consume diet rich in vegs,fruits,whole grain/high fiber,fish,lean meat, Limit sat/trans fats,cholesterol & added salts & sugars, Other additional outcome/goals: Intervention/Plan:: Assess current eating habits, Other Additional plan/interventions 30-day Reassessments:: Progressing - Education Gave educational materials for:: Signs & symptoms of hypoglycemia, Signs & symptoms of hyperglycemia, Relate diabetes to coronary artery disease, Healthy eating Nutrition - 60-Day Assessment Nutrition - 90-Day Assessment Nutrition - Final Assessment Medical - Initial Assessment Medical- 30-Day Assessment - Visit Date of Eval: 03/02/21 Session #:: 5 - Medication Compliance Preventative Medication(s):: Aspirin, Ticagrelor/P2Y12 inhibitor, Statin/lipid, Beta josep H/O mental health issues: depression, anxiety, or addiction?: Yes Doesn?t believe in the benefits of treatment?: No Believes medications are unnecessary or harmful?: No Has a concern about medication side effects?: No Expresses concern over the cost of medications?: No Outcomes/Goals: Verbalizes medications,desired effect & common side effects @ DC, Pt self-reports following medication regimen, Keeps card in wallet w/medications listed by DC, Other additional outcome/goals: Interventions/plans: Instruct on medication effects & side effects, Review medication list w/patient every two weeks, Instruct importance of taking meds as ordered & assist problem solving, Other additional 30-day Reassessments:: Progressing - Tobacco Use Tobacco Use: Non-smoker How long ago did you quit using tobacco products?: Greater than or equal to 6 months ago Do you use smokeless tobacco?: No Interventions/plan: Instruct on effects of smoking & provide smoking cessation resource, Assist pt to set quit date & provide encouragement, Assist pt to develop strategies to achieve/maintain quit date, Assist pt w/nicotine replacement & medication for cessation success, Other additional plan/interventions 30-day Reassessments:: Progressing - Hypertension Hypertension Diagnosis:: Hypertension ICD-10 I10 Resting Blood Pressure:: 120/68 [place] [employer] Hypertension Guidelines: [place] [employer] Hypertension Guidelines. Normal BP Less than 120/80. Elevated BP 120/80. Hypertension Stage 1: BP 130-139/80-89. Hypertesnion Stage 2: BP 140 or higher/90 or higher. Hypertension Crisis: BP higher than 180/120 Peak Exercise Blood Pressure:: 146/66 Outcomes/Goals: Able to verbalize/achieve optimal blood pressure <130/80, Incorporates diet changes & exercise for blood pressure control by DC, Other additional outcomes/goals Interventions/plan: Instruct on optimal blood pressure, hypertension & medications, Instruct on effects of sodium, alcohol, stress, exercise &hypertension, Other additional plan/interventions 30 day Reassessments:: Progressing - Tobacco Cessation Referral Smoking Cessation Referral:: No Individual Education/Counseling:: No Education Schedule Given:: Yes Medical- 60-Day Assessment Medical- 90-Day Assessment Medical - Final Assessment Psychosocial - Initial Assess Psychosocial - 30-Day Assess - VIsit Date of Eval: 03/02/21 Session #:: 5 History of previous Mental disease:: Yes History of Emotional Disorders: Anxious, Depression - Outcomes/Goals: See list Psychosocial Outcomes/Goals:: ID's personal stressors & 2 strategies to manage stress by discharge, Other Additional outcome/goals: - Intervention/Plan: See List Interventions/Plan:: Assess stressors,coping strategies & signs of derpression on admission, Instruct/assist pt to develop coping & personal stress Mgt strategies, Refer to Behavioral Health if appropriate, Refer to Physician if appropriate, Instruct patient to recognize signs & symptoms of depression, Instruct patient to recog, Other additional plan/intervention - 30-day Reassessments: 30 day Reassessments:: Progressing Psychosocial - 60-Day Assess Psychosocial - 90-Day Assess Psychosocial - Final Assessmen Patient Health Questionnaire 30-Day Re-eval Assessment 1. Little interest or pleasure in doing things: Not at all 2. Feeling down, depressed, or hopeless: Not at all 3. Trouble falling or staying asleep, or sleeping too much: Several days 4. Feeling tired or having little energy: Several days 5. Poor appetite or overeating: Not at all 6. Feeling bad about yourself -- or that you are a failure or have let yourself or your family down: Not at all 7. Trouble concentrating on things, such as reading the newspaper or watching television: Not at all 8. Moving or speaking so slowly that other people could have noticed. Or the opposite - being so fidgety or restless that you have been moving around a lot more than usual: Not at all 9. Thoughts that you would be better off , or of hurting yourself in some way: Not at all How difficult have these problems made it for you to do your work, take care of things at home, or get along with other people?: Somewhat difficult Total Score: 2 Self-Efficacy 30-Day Re-eval Assessment We would like to know how confident you are in doing certain activities. Please select your confidence level for:: Select your confidence level for the following using the scale 1-10 where 1 is not at all confident and 10 is totally confident. Your score is the average of all 6 responses. Fatigue: How confident are you that you can keep the fatigue caused by your disease from interfering with the things you want to do? Select Number: 5 Physical Discomfort or Pain: How confident are you that you can keep the physical discomfort or pain of your disease from interfering with the things you want to do? Select Number: 6 Emotional Distress: How confident are you that you can keep the emotional distress caused by your disease from interfering with the things you want to do? Select Number: 8 Other Symptoms or Health Problems: How confident are you that you can keep other symptoms or health problems from interfering with the things you want to do? Select Number: 5 Different Tasks and Activities: How confident are you that you can do the different tasks and activities needed to manage your health condition so as to reduce your need to see a doctor? Select Number: 9 Medication: How confident are you that you can do things other than just taking medication to reduce how much your illness affects your everyday life? Select Number: 10 Total Score:: 7 Nutrition Survey
[2021-03-02 08:17] VITALS: BP 120/68; BP 146/66; BMI 35.2
== END 2021-03-19 23:59 ==
LOC: CR 10:30
PROVIDERS: PCP Family Medicine Geriatric Medicine; Referring Provider Internal Medicine Cardiovascular Disease; Visit Provider Internal Medicine Cardiovascular Disease
DX: I25.10 Atherosclerotic heart disease of native coronary artery without angina pectoris (principal); I10 Essential (primary) hypertension; Z95.5 Presence of coronary angioplasty implant and graft; Z86.73 Personal history of transient ischemic attack (TIA), and cerebral infarction without residual deficits
CPT/HCPCS: 93798

== ENCOUNTER 2021-04-02 14:58 | Outpatient (CLI) | payer OTHER, SELFPAY ==
[2021-04-02 09:40] VITALS: BMI 34.9
[2021-04-02 17:28] LABS: Absolute Lymphocyte Count 2.67 X10^3/uL (0.83-4.51); Absolute Neutrophil Count 6.2 X10^3/uL (2.0-7.7); Basophil# 0.04 X10^3/uL; Basophil% 0.4 % (0-1); Hematocrit 36.5 % (37-47); Hemoglobin 12.1 g/dL (12.0-15.0); Lymphocyte # 2.67 X10^3/ul (0.83-4.51); Lymphocyte % 27.6 % (19-41); Mean Corp Hgb Conc 33.2 g/dL (32-36); Mean Corpuscular Hgb 30.3 pg (27.0-32.0); Mean Corpuscular Volume 91.3 fL (81-99); Mean Platelet Vol. 11.7 fl (6.2-12.0); Monocyte# 0.65 X10^3/uL; Monocyte% 6.7 % (0-10); NRBC Flagged by Analyzer 0 % (0-5); Neutrophil # 6.18 X10^3/uL (2.7-7.7); Platelet Count 310 K/mm3 (150-450); RBC Distribution Width CV 13.2 % (11.6-14.6); RBC Distribution Width SD 43.9 fl (35.1-43.9); White Blood Count 9.7 K/mm3 (4.4-11.0)
[2021-04-02 17:42] LABS: Vitamin D,25 Hydroxy 36.5 ng/mL
[2021-04-02 17:48] LABS: ALB/GLOB Ratio 0.9 RATIO (0.9-2.4); AST(SGOT) 18 U/L (15-37); Alanine Aminotransfer ALT/SGPT 30 U/L (13-56); Albumin, Serum 3.5 g/dL (3.2-5.0); Alkaline Phosphatase 175 U/L (45-117); Anion Gap 7 (5-15); BUN 36 mg/dL (7-18); BUN/Creat Ratio 29.3 RATIO (10-20); Calcium,Total 9.1 mg/dL (8.5-10.1); Chloride 108 mmol/L (98-107); Creatinine, Serum 1.23 mg/dL (0.55-1.02); EST Glomerular Filtration Rate 47 mL/min (>60); Est Glom Filt Rate - Afr Amer 57 mL/min (>60); Globulin 3.7 g/dL (2.2-4.2); Glucose 93 mg/dL (74-106); Potassium 3.4 mmol/L (3.5-5.1); Protein, Total 7.2 g/dL (6.4-8.2); Sodium Level 142 mmol/L (136-145); Thyroid Stim Hormone (TSH) 0.01 uIU/mL (0.358-3.74)
== END 2021-04-02 23:59 | disposition home or self-care (01) ==
LOC: POLAB3 14:59
PROVIDERS: PCP Family Medicine Geriatric Medicine; Visit Provider Family Medicine Geriatric Medicine
DX: E55.9 Vitamin D deficiency, unspecified (principal); R53.83 Other fatigue
CPT/HCPCS: 36415; 80053; 82306; 84443; 85025

== ENCOUNTER 2021-04-16 10:30 | Outpatient (RCR) | payer OTHER, SELFPAY ==
[2021-03-02 08:17] VITALS: BMI 35.2
[2021-03-20 00:44] VITALS: BP 120/68; BP 146/66
--- NOTE | 2021-04-02 09:30 | CR.ITP_ITS ---
Diagnosis Exercise - 60-day Assessment - Visit Date of Eval: 04/02/21 Session #:: 17 - Only missed one session due to program closure for bad weather. - Physician Prescribed Exercise Modalities: Treadmill, NuStep, Lateral Employee Relations Specialist Frequency: 3x/week for 12 weeks [36 sessions] Intensity: 60-80% of age predicted maximum heart rate reserve Current METSs:: 5.5 increase from 3.5 Target Heart Rate:: 133-148 Current RPE:: 13 Maximum Excercise HR:: 118 Resting Blood Pressure: 118/72 Maximum Exercise Blood Pressure: 164/70 EKG Type: NSR to sinus tach w/rare PAC. Noted T wave inversion Current Physical Activity or Exercising minutes: 37:48 - Outcomes & Goals Goals:: Verbalizes understanding of THR, RPE & goal METS by session 6, Documents in home exercise log/reports 30 min aerobic 5 day/wk by DC, Demonstrates accurate pulse taking by DC - Intervention & Plan Exercise Program Goals: Instruct on personal THR & RPE, Instruct on MET level & personal MET goal, Show patient to take own pulse /validate performance until accurate, Instruct on home exercise - 30-day Reassessments 30 day Reassessments:: Met - Physical Activity Home Exercise Physical Activity - Home Exercise: Safe Exercise, Warm-up, Self-monitoring, Cool-Down, Home Exercise > 30 min Daily, Sitting Time <3 hours/daily - Outcomes & Goals Outcomes/Goals: Demonstrates correct Warm-up/exercise Cool-Down (S3) if = 2.5 METs, Verbalizes symptoms of exercise intolerance by Session 3 (S3), Demonstrate safe equipment use (S3) & follows exercise prescrition (6) - Intervention & Plan Plan/Intervention: Instruct warm-up & cool-down if exercising at > 2 METs, Instruct on symptoms of exercise intolerance & actions to take, Instruct & monitor on saf, Assess intial functional capacity & safety risk - 30-day Reassessments 30 day Reassessments:: Met Nutrition - Initial Assessment Nutrition - 30-Day Assessment Nutrition - 60-Day Assessment - Program Goals Nutrition Program Goals: LDL <100 optimal. 100 - 129 Near optimal. 130 - 159 Borderline High. 160 - 189 High. Total Cholesterol <200 desirable. 200 - 239 Borderline High. >/= 240 High. HDL < 40 Low >/=60 High. Triglycerides <150 desirable. <199 optimal. VlDL 5 - 40. HgbA1C <7%. BMI <25 Patient has diagnosis of Hyperlipidemia (ICD E78)?: Yes - Visit Date of Assessment:: 04/02/21 Session #:: 17 - Cholesterol/Lipids Determine presence & major risk factors that modify LDL goal: Hypertension or hypertensive medication, Family history of premature CHD in Male < 55 years: female <65 yearsFa, Age men > 45 years; women >/= 55 years Outcomes/Goals: Pt IDs own risk factors & lifestyle modifications by Session 10, Verbalizes symptoms of angina & response by session 3., Pt independently manages Intervention/Plan: Instruct on personal lipid levels & lipid goals/NCEP guidelines, Instruct on cholesterol Referral to dietitian:: No - Patient visit on 03/05/21 with Nutritional Services 30-day Reassessments:: Progressing - Diabetes (Other Core Measures) Diabetes Type: Not Applicable - Weight Mgt (Other Care) Not Applicable: No Height: 5 ft 3 in - Weight:: 197 lb - Patient has had no weight loss BMI: 34.9 Diagnosis Overweight/Obesity BMI> 30% ICD-10 E66: Yes Diagnosis High BMI/Morbid Obesity BMI> 35% ICD-10 Z68: Yes Outcomes/Goals: Pt sets, maintains & shows weight loss goal & trend during rehab Intervention/Plan: Instruct on ideal BMI & set weight loss goal w/patient, Assist pt to ID & incorporate diet changes for weight loss by S9, Encourage goal of using 250-300dcal per session for weight loss 30 day Reassessments:: Not Met - Healthy Eating Habits Will attend diet classes:: Yes Outcomes/Goals:: Consume diet rich in vegs,fruits,whole grain/high fiber,fish,lean meat, Limit sat/trans fats,cholesterol & added salts & sugars Intervention/Plan:: Assess current eating habits 30-day Reassessments:: Progressing - Education Gave educational materials for:: Healthy eating Nutrition - 90-Day Assessment Nutrition - Final Assessment Medical - Initial Assessment Medical- 30-Day Assessment Medical- 60-Day Assessment - Visit Date of Eval: 04/02/21 Session #:: 17 - Medication Compliance Preventative Medication(s):: Aspirin, Ticagrelor/P2Y12 inhibitor, Statin/lipid, Beta josep H/O mental health issues: depression, anxiety, or addiction?: No Doesn?t believe in the benefits of treatment?: No Believes medications are unnecessary or harmful?: No Has a concern about medication side effects?: No Expresses concern over the cost of medications?: No Outcomes/Goals: Verbalizes medications,desired effect & common side effects @ DC, Pt self-reports following medication regimen, Keeps card in wallet w/medications listed by DC Interventions/plans: Instruct on medication effects & side effects, Review medication list w/patient every two weeks, Instruct importance of taking meds as ordered & assist problem solving - Tobacco Use Tobacco Use: Non-smoker - Hypertension Hypertension Diagnosis:: Hypertension ICD-10 I10 Resting Blood Pressure:: 118/72 [place] [employer] Hypertension Guidelines: [place] [employer] Hypertension Guidelines. Normal BP Less than 120/80. Elevated BP 120/80. Hypertension Stage 1: BP 130-139/80-89. Hypertesnion Stage 2: BP 140 or higher/90 or higher. Hypertension Crisis: BP higher than 180/120 Peak Exercise Blood Pressure:: 164/70 Outcomes/Goals: Able to verbalize/achieve optimal blood pressure <130/80, Incorporates diet changes & exercise for blood pressure control by DC Interventions/plan: Instruct on optimal blood pressure, hypertension & medications, Instruct on effects of sodium, alcohol, stress, exercise &hypertension 30 day Reassessments:: Progressing - Tobacco Cessation Referral Smoking Cessation Referral:: No Individual Education/Counseling:: No Education Schedule Given:: Yes Medical- 90-Day Assessment Medical - Final Assessment Psychosocial - Initial Assess Psychosocial - 30-Day Assess Psychosocial - 60-Day Assess - VIsit Date of Eval: 04/02/21 Session #:: 17 Not Applicable: Yes History of previous Mental disease:: No - Psychosocial Test Tool Used:: PHQ-9 Questionnaire phq-9 Severity: Severity. 1-4 Minimal Depression. 5-9 Mild Depression. 10-14 Moderate Depression. 15-19 Moderately Sever Depression. 20-27 Severe Depression. Rule: - Referral to Behavioral Health PS - Interventions: Yes Attend Stress Management Classes, No Referral to Behavioral Health if PHQ-9 score >9:, No Referral to [facility], No Referral to Physician if PHQ-9 if score is 5-9: - Outcomes/Goals: See list Psychosocial Outcomes/Goals:: ID's personal stressors & 2 strategies to manage stress by discharge - Intervention/Plan: See List Interventions/Plan:: Assess stressors,coping strategies & signs of derpression on admission, Instruct/assist pt to develop coping & personal stress Mgt strategies, Instruct patient to recognize signs & symptoms of depression, Instruct patient to recog - 30-day Reassessments: 30 day Reassessments:: Progressing Psychosocial - 90-Day Assess Psychosocial - Final Assessmen Patient Health Questionnaire 60-Day Re-eval Assessment 1. Little interest or pleasure in doing things: Not at all 2. Feeling down, depressed, or hopeless: Not at all 3. Trouble falling or staying asleep, or sleeping too much: Several days 4. Feeling tired or having little energy: Not at all 5. Poor appetite or overeating: Not at all 6. Feeling bad about yourself -- or that you are a failure or have let yourself or your family down: Not at all 7. Trouble concentrating on things, such as reading the newspaper or watching television: Not at all 8. Moving or speaking so slowly that other people could have noticed. Or the opposite - being so fidgety or restless that you have been moving around a lot more than usual: Not at all 9. Thoughts that you would be better off , or of hurting yourself in some way: Not at all Total Score: 1 Self-Efficacy 60-Day Re-eval Assessment We would like to know how confident you are in doing certain activities. Please select your confidence level for:: Select your confidence level for the following using the scale 1-10 where 1 is not at all confident and 10 is totally confident. Your score is the average of all 6 responses. Fatigue: How confident are you that you can keep the fatigue caused by your disease from interfering with the things you want to do? Select Number: 6 Physical Discomfort or Pain: How confident are you that you can keep the physical discomfort or pain of your disease from interfering with the things you want to do? Select Number: 8 Emotional Distress: How confident are you that you can keep the emotional distress caused by your disease from interfering with the things you want to do? Select Number: 8 Other Symptoms or Health Problems: How confident are you that you can keep other symptoms or health problems from interfering with the things you want to do? Select Number: 9 Different Tasks and Activities: How confident are you that you can do the different tasks and activities needed to manage your health condition so as to reduce your need to see a doctor? Select Number: 9 Medication: How confident are you that you can do things other than just taking medication to reduce how much your illness affects your everyday life? Select Number: 10 Total Score:: 8 Nutrition Survey
[2021-04-02 09:40] VITALS: BP 118/72; BP 164/70
== END 2021-04-16 23:59 ==
LOC: CR 10:30
PROVIDERS: PCP Family Medicine Geriatric Medicine; Referring Provider Internal Medicine Cardiovascular Disease; Visit Provider Internal Medicine Cardiovascular Disease
DX: I25.10 Atherosclerotic heart disease of native coronary artery without angina pectoris (principal); I10 Essential (primary) hypertension; Z95.5 Presence of coronary angioplasty implant and graft; Z86.73 Personal history of transient ischemic attack (TIA), and cerebral infarction without residual deficits
CPT/HCPCS: 93798

== ENCOUNTER 2021-05-16 10:30 | Outpatient (RCR) | payer OTHER, SELFPAY ==
[2021-04-17 00:35] VITALS: BP 118/72; BP 164/70
--- NOTE | 2021-04-30 14:03 | PCM.CR.ITP ---
Diagnosis Exercise - 90-day Assessment - Visit Date of Eval: 04/30/21 Session #:: 28 - Physician Prescribed Exercise Modalities: Treadmill, NuStep, Lateral [place] Frequency: 3x/week for 12 weeks [36 sessions] Intensity: 60-80% of age predicted maximum heart rate reserve Current METSs:: 5.5 Target Heart Rate:: 133-148 Current RPE:: 13 Maximum Excercise HR:: 131 Resting Blood Pressure: 128/82 Maximum Exercise Blood Pressure: 146/74 EKG Type: NSR to ST with rare PAC, PVC and Twave inversion - Outcomes & Goals Goals:: Verbalizes understanding of THR, RPE & goal METS by session 6, Documents in home exercise log/reports 30 min aerobic 5 day/wk by DC, Demonstrates accurate pulse taking by DC, Other additional outcome/goals: see below - Intervention & Plan Exercise Program Goals: Instruct on personal THR & RPE, Instruct on MET level & personal MET goal, Show patient to take own pulse /validate performance until accurate, Instruct on home exercise, Other additional plan/int - 30-day Reassessments 30 day Reassessments:: Progressing - Physical Activity Home Exercise Physical Activity - Home Exercise: Safe Exercise, Warm-up, Self-monitoring, Cool-Down, Home Exercise > 30 min Daily, Sitting Time <3 hours/daily - Outcomes & Goals Outcomes/Goals: Demonstrates correct Warm-up/exercise Cool-Down (S3) if = 2.5 METs, Verbalizes symptoms of exercise intolerance by Session 3 (S3), Demonstrate safe equipment use (S3) & follows exercise prescrition (6), Other: See below - Intervention & Plan Plan/Intervention: Instruct warm-up & cool-down if exercising at > 2 METs, Instruct on symptoms of exercise intolerance & actions to take, Instruct & monitor on saf, Assess intial functional capacity & safety risk, Other See below - 30-day Reassessments 30 day Reassessments:: Progressing Nutrition - Initial Assessment Nutrition - 30-Day Assessment Nutrition - 60-Day Assessment Nutrition - 90-Day Assessment - Program Goals Nutrition Program Goals: LDL <100 optimal. 100 - 129 Near optimal. 130 - 159 Borderline High. 160 - 189 High. Total Cholesterol <200 desirable. 200 - 239 Borderline High. >/= 240 High. HDL < 40 Low >/=60 High. Triglycerides <150 desirable. <199 optimal. VlDL 5 - 40. HgbA1C <7%. BMI <25 Patient has diagnosis of Hyperlipidemia (ICD E78)?: Yes - Visit Date of Assessment:: 04/30/21 Session #:: 28 - Cholesterol/Lipids Determine presence & major risk factors that modify LDL goal: Hypertension or hypertensive medication, Low HDL cholesterol <40 mg/dL*, Family history of premature CHD in Male < 55 years: female <65 yearsFa, Age men > 45 years; women >/= 55 years Outcomes/Goals: Pt IDs own risk factors & lifestyle modifications by Session 10, Verbalizes symptoms of angina & response by session 3., Pt independently manages, Other Additional Outcomes/Goals: Intervention/Plan: Advocate for lipid panel cholesterol medication if applicable, Instruct on personal lipid levels & lipid goals/NCEP guidelines, Instruct on cholesterol, Other additional plan/int 30-day Reassessments:: Progressing - Weight Mgt (Other Care) Height: 5 ft 3 in Weight:: 89.811 kg BMI: 35.0 Diagnosis Overweight/Obesity BMI> 30% ICD-10 E66: Yes Outcomes/Goals: Pt sets, maintains & shows weight loss goal & trend during rehab, Other additional outcomes/goals Intervention/Plan: Instruct on ideal BMI & set weight loss goal w/patient, Assist pt to ID & incorporate diet changes for weight loss by S9, Refer to Structured Weight Loss program as appropriate, Encourage goal of using 250-300dcal per session for weight loss, Other additional plan/interventions 30 day Reassessments:: Progressing - Healthy Eating Habits Will attend diet classes:: Yes Outcomes/Goals:: Consume diet rich in vegs,fruits,whole grain/high fiber,fish,lean meat, Limit sat/trans fats,cholesterol & added salts & sugars, Other additional outcome/goals: Intervention/Plan:: Assess current eating habits, Other Additional plan/interventions 30-day Reassessments:: Progressing - Education Gave educational materials for:: Signs & symptoms of hypoglycemia, Signs & symptoms of hyperglycemia, Relate diabetes to coronary artery disease, Healthy eating Nutrition - Final Assessment Medical - Initial Assessment Medical- 30-Day Assessment Medical- 60-Day Assessment Medical- 90-Day Assessment - Visit Date of Eval: 04/30/21 Session #:: 28 - Medication Compliance Preventative Medication(s):: Aspirin, Ticagrelor/P2Y12 inhibitor, Statin/lipid, Beta josep H/O mental health issues: depression, anxiety, or addiction?: No Doesn?t believe in the benefits of treatment?: No Believes medications are unnecessary or harmful?: No Has a concern about medication side effects?: No Expresses concern over the cost of medications?: No Outcomes/Goals: Verbalizes medications,desired effect & common side effects @ DC, Pt self-reports following medication regimen, Keeps card in wallet w/medications listed by DC, Other additional outcome/goals: Interventions/plans: Instruct on medication effects & side effects, Review medication list w/patient every two weeks, Instruct importance of taking meds as ordered & assist problem solving, Other additional 30-day Reassessments:: Progressing - Tobacco Use Tobacco Use: Non-smoker Do you use smokeless tobacco?: No 30-day Reassessments:: Progressing - Hypertension Hypertension Diagnosis:: Hypertension ICD-10 I10 Resting Blood Pressure:: 128/82 [place] [employer] Hypertension Guidelines: [place] [employer] Hypertension Guidelines. Normal BP Less than 120/80. Elevated BP 120/80. Hypertension Stage 1: BP 130-139/80-89. Hypertesnion Stage 2: BP 140 or higher/90 or higher. Hypertension Crisis: BP higher than 180/120 Peak Exercise Blood Pressure:: 146/74 Outcomes/Goals: Able to verbalize/achieve optimal blood pressure <130/80, Incorporates diet changes & exercise for blood pressure control by DC, Other additional outcomes/goals Interventions/plan: Instruct on optimal blood pressure, hypertension & medications, Instruct on effects of sodium, alcohol, stress, exercise &hypertension, Other additional plan/interventions 30 day Reassessments:: Progressing - Tobacco Cessation Referral Smoking Cessation Referral:: No Individual Education/Counseling:: No Education Schedule Given:: Yes Medical - Final Assessment Psychosocial - Initial Assess Psychosocial - 30-Day Assess Psychosocial - 60-Day Assess Psychosocial - 90-Day Assess - VIsit Date of Eval: 04/30/21 Session #:: 28 Not Applicable: No - Outcomes/Goals: See list Psychosocial Outcomes/Goals:: ID's personal stressors & 2 strategies to manage stress by discharge, Other Additional outcome/goals: - Intervention/Plan: See List Interventions/Plan:: Assess stressors,coping strategies & signs of derpression on admission, Instruct/assist pt to develop coping & personal stress Mgt strategies, Refer to Behavioral Health if appropriate, Refer to Physician if appropriate, Instruct patient to recognize signs & symptoms of depression, Instruct patient to recog, Other additional plan/intervention - 30-day Reassessments: 30 day Reassessments:: Progressing Psychosocial - Final Assessmen Patient Health Questionnaire 90-Day Re-eval Assessment 1. Little interest or pleasure in doing things: Not at all 2. Feeling down, depressed, or hopeless: Not at all 3. Trouble falling or staying asleep, or sleeping too much: Several days 4. Feeling tired or having little energy: Not at all 5. Poor appetite or overeating: Not at all 6. Feeling bad about yourself -- or that you are a failure or have let yourself or your family down: Not at all 7. Trouble concentrating on things, such as reading the newspaper or watching television: Not at all 8. Moving or speaking so slowly that other people could have noticed. Or the opposite - being so fidgety or restless that you have been moving around a lot more than usual: Not at all 9. Thoughts that you would be better off , or of hurting yourself in some way: Not at all How difficult have these problems made it for you to do your work, take care of things at home, or get along with other people?: Not difficult at all Total Score: 1 Self-Efficacy 90-Day Re-eval Assessment We would like to know how confident you are in doing certain activities. Please select your confidence level for:: Select your confidence level for the following using the scale 1-10 where 1 is not at all confident and 10 is totally confident. Your score is the average of all 6 responses. Fatigue: How confident are you that you can keep the fatigue caused by your disease from interfering with the things you want to do? Select Number: 6 Physical Discomfort or Pain: How confident are you that you can keep the physical discomfort or pain of your disease from interfering with the things you want to do? Select Number: 8 Emotional Distress: How confident are you that you can keep the emotional distress caused by your disease from interfering with the things you want to do? Select Number: 8 Other Symptoms or Health Problems: How confident are you that you can keep other symptoms or health problems from interfering with the things you want to do? Select Number: 9 Different Tasks and Activities: How confident are you that you can do the different tasks and activities needed to manage your health condition so as to reduce your need to see a doctor? Select Number: 9 Medication: How confident are you that you can do things other than just taking medication to reduce how much your illness affects your everyday life? Select Number: 10 Total Score:: 8 Nutrition Survey
[2021-04-30 14:13] VITALS: BP 128/82; BP 146/74; BMI 35.0
== END 2021-05-17 23:59 | disposition home or self-care (01) ==
LOC: CR 10:30
PROVIDERS: PCP Family Medicine Geriatric Medicine; Referring Provider Internal Medicine Cardiovascular Disease; Visit Provider Internal Medicine Cardiovascular Disease
DX: I25.10 Atherosclerotic heart disease of native coronary artery without angina pectoris (principal); Z95.5 Presence of coronary angioplasty implant and graft
CPT/HCPCS: 93798

== ENCOUNTER 2021-05-16 11:05 | Outpatient (CLI) | payer OTHER, SELFPAY ==
[2021-04-30 14:13] VITALS: BMI 35.0
== END 2021-05-16 23:59 | disposition home or self-care (01) ==
LOC: POLAB3 11:06
PROVIDERS: PCP Family Medicine Geriatric Medicine; Visit Provider Family Medicine Geriatric Medicine
DX: E03.9 Hypothyroidism, unspecified (principal)
CPT/HCPCS: 36415; 84443

== ENCOUNTER 2021-05-18 09:17 | Outpatient (RCR) | payer OTHER, SELFPAY ==
[2021-04-30 14:13] VITALS: BMI 35.0
[2021-05-18 00:36] VITALS: BP 128/82; BP 146/74
== END 2021-06-16 23:59 ==
LOC: CR 09:17
PROVIDERS: PCP Family Medicine Geriatric Medicine; Referring Provider Internal Medicine Cardiovascular Disease; Visit Provider Internal Medicine Cardiovascular Disease
DX: I25.10 Atherosclerotic heart disease of native coronary artery without angina pectoris (principal); Z95.5 Presence of coronary angioplasty implant and graft; Z86.73 Personal history of transient ischemic attack (TIA), and cerebral infarction without residual deficits; I10 Essential (primary) hypertension

== ENCOUNTER → 2021-07-02 | Outpatient (CLI) | payer OTHER, SELFPAY ==
[2021-04-30 14:13] VITALS: BMI 35.0
[2021-07-02 17:35] LABS: Vitamin D,25 Hydroxy 33.5 ng/mL
[2021-07-02 17:51] LABS: AST(SGOT) 21 U/L (15-37); Alanine Aminotransfer ALT/SGPT 33 U/L (13-56); Albumin, Serum 3.7 g/dL (3.2-5.0); Alkaline Phosphatase 166 U/L (45-117); Anion Gap 5 (5-15); BUN 30 mg/dL (7-18); Calcium,Total 9.1 mg/dL (8.5-10.1); Chloride 107 mmol/L (98-107); Creatinine, Serum 1.07 mg/dL (0.55-1.02); EST Glomerular Filtration Rate 55 mL/min (>60); Est Glom Filt Rate - Afr Amer 67 mL/min (>60); Globulin 3.7 g/dL (2.2-4.2); Glucose 108 mg/dL (74-106); Potassium 3.6 mmol/L (3.5-5.1); Protein, Total 7.4 g/dL (6.4-8.2); Sodium Level 138 mmol/L (136-145); Thyroid Stim Hormone (TSH) 2.04 uIU/mL (0.358-3.74)
== END | disposition home or self-care (01) ==
LOC: POLAB3 13:40
PROVIDERS: PCP Family Medicine Geriatric Medicine; Visit Provider Family Medicine Geriatric Medicine
DX: I10 Essential (primary) hypertension (principal); E55.9 Vitamin D deficiency, unspecified
CPT/HCPCS: 36415; 80053; 82306; 84443

== ENCOUNTER → 2022-01-07 | Outpatient (CLI) | payer OTHER, SELFPAY ==
[2021-04-30 14:13] VITALS: BMI 35.0
[2022-01-07 11:28] LABS: Absolute Lymphocyte Count 1.63 X10^3/uL (0.83-4.51); Absolute Neutrophil Count 5.3 X10^3/uL (2.0-7.7); Basophil# 0.04 X10^3/uL; Basophil% 0.5 % (0-1); Eosinophil# 0.08 X10^3/uL; Eosinophils% 1.1 % (0-5); Hematocrit 40.3 % (37-47); Hemoglobin 12.7 g/dL (12.0-15.0); Lymphocyte # 1.63 X10^3/ul (0.83-4.51); Lymphocyte % 21.8 % (19-41); Mean Corp Hgb Conc 31.5 g/dL (32-36); Mean Corpuscular Hgb 29.3 pg (27.0-32.0); Mean Corpuscular Volume 92.9 fL (81-99); Mean Platelet Vol. 10.3 fl (6.2-12.0); Monocyte# 0.43 X10^3/uL; Monocyte% 5.8 % (0-10); NRBC Flagged by Analyzer 0 % (0-5); Neutrophil # 5.25 X10^3/uL (2.7-7.7); Neutrophil % 70.4 % (47-70); Platelet Count 290 K/mm3 (150-450); RBC Distribution Width SD 48.8 fl (35.1-43.9); Red Blood Count 4.34 M/mm3 (4.2-5.4); White Blood Count 7.5 K/mm3 (4.4-11.0)
[2022-01-07 12:04] LABS: Vitamin D,25 Hydroxy 36.2 ng/mL
[2022-01-07 12:11] LABS: AST(SGOT) 19 U/L (15-37); Alanine Aminotransfer ALT/SGPT 24 U/L (13-56); Albumin, Serum 3.8 g/dL (3.2-5.0); Alkaline Phosphatase 179 U/L (45-117); Anion Gap 6 (5-15); BUN 26 mg/dL (7-18); Calcium,Total 9.6 mg/dL (8.5-10.1); Chloride 111 mmol/L (98-107); Creatinine, Serum 1.18 mg/dL (0.55-1.02); EST Glomerular Filtration Rate 49 mL/min (>60); Est Glom Filt Rate - Afr Amer 60 mL/min (>60); Glucose 108 mg/dL (74-106); Potassium 3.6 mmol/L (3.5-5.1); Protein, Total 7.8 g/dL (6.4-8.2); Sodium Level 142 mmol/L (136-145)
== END | disposition home or self-care (01) ==
LOC: LAB 11:07
PROVIDERS: PCP Family Medicine Geriatric Medicine; Referring Provider Family Medicine Geriatric Medicine; Visit Provider Family Medicine Geriatric Medicine
DX: E55.9 Vitamin D deficiency, unspecified (principal); I10 Essential (primary) hypertension
CPT/HCPCS: 36415; 80053; 82306; 84443; 85025

== ENCOUNTER 2022-02-07 12:30 | Outpatient (RCR) | payer OTHER, SELFPAY ==
[2021-04-30 14:13] VITALS: BMI 35.0
--- NOTE | 2022-01-01 12:36 | HP.PTEVAL ---
Patient's Visit Information DOMINIQUE DAVID is a 61 year old F referred to Physical Therapy by Dr. Hernan Green DO with a diagnosis of L shoulder fracture. Date of Evaluation: 01/01/22 Physical Therapist: Amado Almeida, [place], OCS, CSCS - Visit Plan Frequency: 2x /Week Duration: 4-6 Weeks Plan: 2x/week x 4-6 for. 1 AAROM to aROM to full and pain management until doctor visit then strength of shoulder and scap. - Subjective Nov 15 fell and broke L shoulder. Fell on bad L foot from stroke which was 2019. This has been her only fall. Landed on L shoulder and fractured. Was in ER when this happened. Gave her sling and asked her to see Scarlet and he sent for therapy after 3-4 weeks. Saw him 2 weeks ago and will see again next week. Pain this week up to 10/10 when she moves it at night. Comfortable at rest only hurts to move. it interrupts her sleep now and then, cannot take oxy. She is taking tramadol at night. Is L handed. Not employed. Lives with , one story house. Uses cane to get around in R UE. Basic ADLs: dressing OK, can light cook and clean without L UE. Bathroom and shower herself. 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 - Pain L upper arm Pain Intensity (Out of 10): 0 Pain Intensity Range: 0, 10 - Objective L shoulder held protected adn max forward scap in posture. Tender at g-h joint line and supra anterior L shoulder to palpation. Walks I and normal. Transfers I without WB through L UE. AROM L shoulder 110 flexion and abduction and 25 ext rotation and L5 IR with pain at end ranges transiently. PROM 140 flexion, 65 ext rotation all limited by pain. AROM after AAROM ex 140 flexion and 50 ext rotation. Elbow AROM full and strength at 4/5 without pain. wrist and hand funciton WNL. reflexes 2/3 bi and tri. Sensation UE WNL to gross light touch. - Balance/Special Test Scores Quick DASH Score: 34.0900 - Goals Goal 1:: 150 arom flexion and 60 ext rotation without pain Goal Time Frame: 2-4 Weeks Goal 2:: Pt able to reach overhead without hesitation or pain into cupboards. Goal Time Frame: 4-6 Weeks Goal 3:: sleep without waking due to pain Goal Time Frame: 4-6 Weeks Goal 4:: I management of condition Goal Time Frame: 4-6 Weeks Goal 5:: qucikdash 15 or better. Goal Time Frame: 4-6 Weeks - Rehabilitation Potential Physical Therapy Diagnosis: L shoulder fracture healing with pain and immobility. Rehabilitation Potential: Good - Anticipated Interventions Patient/Client Instruction: Educate patient on: Condition, Plan of Care For the Purpose of:: To decrease pain, To increase ROM, To improve muscle performance and motor function, To increase tolerance to activity/condition/position, To improve performance and independence with ADL's Therapeutic Exercise to Include: Strength training, Postural training, Flexibilty training, Passive ROM, Active ROM For the Purpose of:: To decrease pain, To increase ROM, To improve nutrient delivery to tissue, To improve muscle performance and motor function Manual Therapy Techniques to Include: Passive ROM, Soft tissue mobilization For the Purpose of:: To decrease swelling/inflammation Thank you for the opportunity to evaluate your patient. For Medicare and Medicare HMO plans, please review the plan of care and approve it. It will need to be FAXED BACK to us at [phone] for Medicare purposes. For Medicare only, by signing this I certify the plan of care. Please let me know if there are questions or concerns regarding this plan of care. Physician Signature: Date:
--- NOTE | 2022-03-25 08:08 | HP.PT.NRP ---
DOMINIQUE DAVID was seen in my office for initial evaluation on 01/01/22. The following Plan of Care was established for this patient: Initial Frequency: 2x /Week Initial Duration: 4-6 Weeks Patient/Client Instruction: Educate patient on: Condition, Plan of Care For the Purpose of:: To decrease pain, To increase ROM, To improve muscle performance and motor function, To increase tolerance to activity/condition/position, To improve performance and independence with ADL's Therapeutic Exercise to Include: Strength training, Postural training, Flexibilty training, Passive ROM, Active ROM For the Purpose of:: To decrease pain, To increase ROM, To improve nutrient delivery to tissue, To improve muscle performance and motor function Manual Therapy Techniques to Include: Passive ROM, Soft tissue mobilization For the Purpose of:: To decrease swelling/inflammation This patient was last seen in our office 02/07/22. Pertinent comments regarding their Physical therapy will appear below: Pt seen 7 visits of POC and was 80% better at recheck. She was to f/u two weeks later to ensure continued progress but did not schedule or attend. At this point, it has been over 5 weeks and I will discontinue due to nonattendance. At this point I will be discontinuing this patient from physical therapy. I would be happy to see this patient again in the future if found appropriate by the physician. Thank you! Amado Almeida, DPT, OCS, CSCS Balance/Gait/Functional tests - Balance/Special Test Scores Quick DASH Score: 15.9081
== END 2022-02-07 19:00 | disposition home or self-care (01) ==
LOC: PT 12:30
PROVIDERS: PCP Family Medicine Geriatric Medicine; Referring Provider Orthopaedic Surgery; Visit Provider Orthopaedic Surgery
DX: S42.209D Unspecified fracture of upper end of unspecified humerus, subsequent encounter for fracture with routine healing (principal)
CPT/HCPCS: 97110; 97140; 97530

== ENCOUNTER → 2022-04-08 | Outpatient (CLI) | payer OTHER, SELFPAY ==
[2021-04-30 14:13] VITALS: BMI 35.0
[2022-04-08 12:42] LABS: Absolute Lymphocyte Count 2.04 X10^3/uL (0.83-4.51); Absolute Neutrophil Count 7.3 X10^3/uL (2.0-7.7); Basophil# 0.07 X10^3/uL; Basophil% 0.7 % (0-1); Eosinophil# 0.27 X10^3/uL; Eosinophils% 2.6 % (0-5); Hematocrit 41.4 % (37-47); Hemoglobin 13.3 g/dL (12.0-15.0); Lymphocyte # 2.04 X10^3/ul (0.83-4.51); Lymphocyte % 19.8 % (19-41); Mean Corp Hgb Conc 32.1 g/dL (32-36); Mean Corpuscular Hgb 29.6 pg (27.0-32.0); Mean Corpuscular Volume 92.2 fL (81-99); Mean Platelet Vol. 11.6 fl (6.2-12.0); Monocyte# 0.59 X10^3/uL; Monocyte% 5.7 % (0-10); NRBC Flagged by Analyzer 0 % (0-5); Neutrophil % 70.9 % (47-70); Platelet Count 308 K/mm3 (150-450); RBC Distribution Width CV 14.5 % (11.6-14.6); RBC Distribution Width SD 49.6 fl (35.1-43.9); Red Blood Count 4.49 M/mm3 (4.2-5.4); White Blood Count 10.3 K/mm3 (4.4-11.0)
[2022-04-08 13:18] LABS: AST(SGOT) 18 U/L (15-37); Alanine Aminotransfer ALT/SGPT 25 U/L (13-56); Albumin, Serum 3.9 g/dL (3.2-5.0); Alkaline Phosphatase 193 U/L (45-117); Anion Gap 11 (5-15); BUN 27 mg/dL (7-18); BUN/Creat Ratio 23.9 RATIO (10-20); Chloride 108 mmol/L (98-107); Creatinine, Serum 1.13 mg/dL (0.55-1.02); EST Glomerular Filtration Rate 52 mL/min (>60); Est Glom Filt Rate - Afr Amer 63 mL/min (>60); Globulin 3.9 g/dL (2.2-4.2); Glucose 109 mg/dL (74-106); Potassium 4.1 mmol/L (3.5-5.1); Protein, Total 7.8 g/dL (6.4-8.2); Sodium Level 140 mmol/L (136-145); Thyroid Stim Hormone (TSH) 0.53 uIU/mL (0.358-3.74)
== END | disposition home or self-care (01) ==
LOC: POLAB3 10:35
PROVIDERS: PCP Family Medicine Geriatric Medicine; Visit Provider Family Medicine Geriatric Medicine
DX: I10 Essential (primary) hypertension (principal)
CPT/HCPCS: 36415; 80053; 84443; 85025

== ENCOUNTER → 2022-07-10 | Outpatient (CLI) | payer OTHER, SELFPAY ==
[2021-04-30 14:13] VITALS: BMI 35.0
[2022-07-10 16:43] LABS: Absolute Lymphocyte Count 2.49 X10^3/uL (0.83-4.51); Absolute Neutrophil Count 4.5 X10^3/uL (2.0-7.7); Basophil# 0.07 X10^3/uL; Basophil% 0.9 % (0-1); Eosinophil# 0.24 X10^3/uL; Eosinophils% 3.1 % (0-5); Hematocrit 40.9 % (37-47); Hemoglobin 12.9 g/dL (12.0-15.0); Lymphocyte # 2.49 X10^3/ul (0.83-4.51); Lymphocyte % 31.8 % (19-41); Mean Corp Hgb Conc 31.5 g/dL (32-36); Mean Corpuscular Volume 91.9 fL (81-99); Mean Platelet Vol. 10.8 fl (6.2-12.0); Monocyte# 0.48 X10^3/uL; Monocyte% 6.1 % (0-10); NRBC Flagged by Analyzer 0 % (0-5); Neutrophil # 4.52 X10^3/uL (2.7-7.7); Neutrophil % 57.7 % (47-70); Platelet Count 298 K/mm3 (150-450); RBC Distribution Width CV 14.6 % (11.6-14.6); RBC Distribution Width SD 49.3 fl (35.1-43.9); Red Blood Count 4.45 M/mm3 (4.2-5.4); White Blood Count 7.8 K/mm3 (4.4-11.0)
[2022-07-10 17:21] LABS: AST(SGOT) 21 U/L (15-37); Alanine Aminotransfer ALT/SGPT 24 U/L (13-56); Albumin, Serum 3.8 g/dL (3.2-5.0); Alkaline Phosphatase 201 U/L (45-117); Anion Gap 11 (5-15); BUN 23 mg/dL (7-18); BUN/Creat Ratio 23.2 RATIO (10-20); Calcium,Total 9.7 mg/dL (8.5-10.1); Chloride 107 mmol/L (98-107); Creatinine, Serum 0.99 mg/dL (0.55-1.02); EST Glomerular Filtration Rate 60 mL/min (>60); Est Glom Filt Rate - Afr Amer 73 mL/min (>60); Globulin 3.8 g/dL (2.2-4.2); Glucose 103 mg/dL (74-106); Potassium 4.1 mmol/L (3.5-5.1); Protein, Total 7.6 g/dL (6.4-8.2); Sodium Level 138 mmol/L (136-145); Thyroid Stim Hormone (TSH) 3.12 uIU/mL (0.358-3.74)
== END | disposition home or self-care (01) ==
LOC: POLAB3 14:55
PROVIDERS: PCP Family Medicine Geriatric Medicine; Visit Provider Family Medicine Geriatric Medicine
DX: I10 Essential (primary) hypertension (principal)
CPT/HCPCS: 36415; 80053; 84443; 85025

== ENCOUNTER → 2022-07-19 | Outpatient (CLI) | payer OTHER, SELFPAY ==
[2021-04-30 14:13] VITALS: BMI 35.0
--- NOTE | 2022-07-19 12:17 | BI_ITS ---
MAMMOGRAPHY - BILATERAL SCREENING REASON FOR EXAM: Female, 62 years old. Routine annual screening examination. PERTINENT HISTORY: Grandmother with breast cancer. TECHNIQUE: Digital bilateral breast cynthia (3D mammographic acquisition) in the CC and MLO projections. 2-D mediolateral oblique (MLO) and craniocaudad (CC) views of both breasts were obtained. CAD: Full Field Digital Mammography with Computer Added Detection was performed. COMPARISON: Comparison is made with prior study dated July 06, 2020. FINDINGS: Breast Composition: There are scattered areas of fibroglandular density. There are no dominant masses or suspicious calcifications. Stable small benign-appearing bilateral axillary lymph nodes. No other significant abnormalities are identified. There has been no significant change since the prior study. BI/SCRN MAMM (CAD)W/CYNTHIA BILAT IMPRESSION: Stable bilateral screening mammogram. Yearly follow-up mammogram recommended. (A) ASSESSMENT CATEGORY: BIRADS Category 2: Benign. A letter regarding these results will be sent to the patient by the facility within 30 days. Approximately 10% of breast cancers are not detected by mammography. A normal mammogram should not delay biopsy of a clinically suspicious abnormality. [id number] Electronically Signed: Gerardo Santillan MD at 13:48 EDT ,
== END | disposition home or self-care (01) ==
LOC: OPBI 12:16
PROVIDERS: PCP Family Medicine Geriatric Medicine; Referring Provider Family Medicine Geriatric Medicine; Visit Provider Family Medicine Geriatric Medicine
DX: Z12.31 Encounter for screening mammogram for malignant neoplasm of breast (principal); Z80.3 Family history of malignant neoplasm of breast
CPT/HCPCS: 77063; 77067

== ENCOUNTER 2022-07-29 11:00 | Outpatient (RCR) | payer OTHER, SELFPAY ==
[2021-04-30 14:13] VITALS: BMI 35.0
--- NOTE | 2022-05-10 15:03 | HP.PTEVAL ---
Patient's Visit Information DOMINIQUE DAVID is a 61 year old F referred to Physical Therapy by Dr. Alek Knox MD with a diagnosis of WEAKNESS. Date of Evaluation: 05/10/22 Physical Therapist: Carolina Guthrie PT, Cert MDT - Visit Plan Frequency: 2-3x /Week Duration: 4-6 Months Plan: *CHECK AUTH: RECORD # OF VISITS APPROVED AND EXPIRATION DATE. CHECK CODES APPROVED WITH POC*. GAIT TRAINING INCLUDING STEPS. BALANCE TRAINING. ENDURANCE TRAINING AND NATHANIEL LE STRENGTHENING. EMPHASIZE NEED FOR CONTINUED INDEP EX POST PT. - Subjective Work/Leisure: UNEMPLOYEED. Disability: NO. Present symptoms: A LOT OF WEAKNESS IN LEFT LEG AND ESPECIALLY LEFT LB/HIP PAIN. Present since: NOV 2020 WHEN HAD A HEART ATTACK. 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 PATIENT REPORTS SHE WAS DOING REALLY GOOD AFTER PHYSICAL THERPAY FOR HER STROKE UNTIL SHE HAD HER HEART ATTACK. Pain Scale: LEFT HIP PAIN - WORST 8/10, LEAST 0/10. Currently: 0/10. Is it getting better, worse or staying the same: WORSENING. Commenced as a result of: HEART ATTACK AND STROKE. Worse: TRYING TO WALK A LOT, STANDING AT THE SINK, TRYING TO WALK UP STAIRS, VACUUMING. Better: LYING DOWN AND SITTING. Disturbed sleep: NO. Previous history/Previous treatment: CVA MAY 2020, HEART ATTACK NOV 2020. FALL OCT 2021 DUE TO L LE WEAKNESS IN [facility] EMERGENCY DEPT WHEN TAKING SON-IN-LAW THERE AND BROKE LEFT ARM - NO SURGERY. CARDIAC REHAB X 3 MONTHS AFTER HEART ATTACK AND PATIENT REPORTS IT WENT REALLY WELL AND STATES HER LEG WAS GETTING STRONGER BUT STARTED GETTING WEAK AGAIN WHEN STOPPED. Gait: NOT USING ANY ASSISTIVE DEVICES BUT DOES HAVE A CANE AND USES IT ON RARE occasion. PATIENT REPORTS SHE CAN ONLY WALK ABOUT 5-10 MINUTES BEFORE BECOMING SOB STOPS HER. Bowel or Bladder Dysfunction: SOME UI AT NIGHT. Unexplained weight loss: NO. Imaging: NONE RECENT. PMH/Recent major surgery: HTN. STEPS: 3 STEPS INTO HOUSE WITH ONE HANDRAIL. CAN NOT GO UP WITH LLE SO ONE STEP AT A TIME AND WITH HUSBANDS SUPERVISION. I HAVE A BASEMENT AND CAN'T GO DOWN TO IT. PATIENT REPORTS SHE COULD GO UP AND DOWN STEPS HERE IN PT AFTER HER STROKE. - Objective Sitting/Standing Posture: FAIR. NO RELEVANT LATERAL SHIFT. Other Observations: INDEP GAIT INTO PT TODAY WITHOUT ANY ASSISTIVE DEVICES OR LOB BUT DECREASED CADANCE, AND SPASTICITY LLE. PATIENT ALSO LIMPING ON R LE WITH C/O R HIP/LBP. Sensory deficit: NATHANIEL LE LIGHT TOUCH SENSATION GROSSLY INTACT AND SYMMETRICAL. ROM deficit: NATHANIEL LE'S WFL EXCEPT MILD L HS AND GASTROC TIGHTNESS. Motor deficit: R LE GROSSLY 5/5. L LE: HIP 4-/5, KNEE 4-/5, ANKLE 4/5. Reflexes: 3/3 NATHANIEL QUADS AND 2/3 NATHANIEL ACHILLES. Dural Signs: NEGATIVE NATHANIEL LE'S. Lumbar mvmt loss: flex - MIN. ext - MOD. R SG - MOD. L SG - MIN. PATIENT C/O INCREASED L LB/HIP PAIN WITH LUMBAR ROM TESTING ALL PLANES. Core strength: POOR. Palpation: NO ACUTE HIP OR LOW BACK TENDERNESS WITH PALPATION TODAY. OTHER: SEE TUG AND STS TEST SCORES BELOW. - Balance/Special Test Scores Lower Extremity Functional Score: 38 TUG Test Time Seconds: 19.08 30 Second Chair Rise Test Seconds: 8 - Goals Goal 1:: PATIENT WILL COMPLETE 10 STANDS IN 30 SECS TO DEMONSTRATE IMPROVED FUNCTIONAL STRENGTH Goal Time Frame: 6-8 Weeks Goal 2:: PATIENT WILL COMPLETE TUG IN < 15 SECS TO DEMONSTRATE IMPROVED GAIT STABILITY Goal Time Frame: 6-8 Weeks Goal 3:: PATIENT WILL AMBULATE 15 MIN ON LEVEL SURFACES INDEP'LY TO IMPROVE ACTIVITY TOLERANCE Goal Time Frame: 6-8 Weeks Goal 4:: PATIENT WILL ASCEND AND DESCEND STEPS WITH ONE HR RECIP INDEP'LY AND SAFELY TO GO TO BASEMENT AT HOME. Goal Time Frame: 6-8 Weeks Goal 5:: *PATIENT WILL BE INDEP WITH A HEP AND/OR GYM EX PROGRAM FOR CONTINUED IMPROVEMENT ONCE FORMAL PHYSICAL THERAPY CONCLUDES. Goal Time Frame: 6-8 Weeks - Anticipated Interventions Patient/Client Instruction: Educate patient on: Condition, Plan of Care, Risk Factors For the Purpose of:: To improve self management Therapeutic Exercise to Include: Strength training, Endurance training, Balance training, Flexibilty training, Gait and locomotor training, Neuromotor development For the Purpose of:: To improve muscle performance and motor function, To increase tolerance to activity/condition/position, To improve ability of physical actions for home/community/work/leisure, To improve gait and locomotor functions Thank you for the opportunity to evaluate your patient. For Medicare and Medicare HMO plans, please review the plan of care and approve it. It will need to be FAXED BACK to us at [phone] for Medicare purposes. For Medicare only, by signing this I certify the plan of care. Please let me know if there are questions or concerns regarding this plan of care. Physician Signature: Date:
--- NOTE | 2022-06-20 11:21 | HP.PTREVAL_ITS ---
Dr. Alek Knox MD, It has been my pleasure to treat DOMINIQUE DAVID over the last 9 visits for WEAKNESS. Please see the progress note below for an update on the physical therapy plan of care! Subjective: PATIENT REPORTS SHE REALLY ISN'T GETTING BETTER. REPORTS SHE IS STILL HAVING THE SAME AMOUNT OF DIFFICULTY ON STEPS. SHE REPORTS SHE IS NOT GETTING BETTER AND NOT WALKING BETTER. SHE STATES SHE IS NOT GETTING WORSE - JUST NOT GETTING BETTER. Objective/Function: PATIENT WAS SEEN TODAY FOR RE-ASSESSMENT OF PROGRESS TOWARD THE SET PT GOALS AND THE NEED FOR FURTHER PHYSICAL THERAPY VS READINESS FOR DISCHARGE. UPON EXAM TODAY THERE ARE NO SIGNIFICANT CHANGES COMPARED TO INITIAL EVAL EXCEPT SMALL IMPROVEMENTS IN TUG TEST TIME AND IMPROVEMENT IN 30STS TESTS - SEE BELOW. PATIENT CONSISTANTLY REPORTS FEELING DEFEATED EA VISIT AND NEEDS ENCOURAGEMENT. SHE IS COOPERATIVE AND ATTENDED ALL VISITS. PATIENT IS UNSAFE WITH GYM PROGRAM ALONE AND HAS HAD DIFFICULTY FINDING A FRIEND OR WIRELESS SALES REPRESENTATIVE TO ASSIST HER. PATIENT MAY BENEFIT FROM FURTHER PT TO SEE IF SHE CAN BECOME SAFE WITH INDEP GYM EX. PATIENT WANTS TO BECOME A [employer] MEMBER HERE AT AND IS WILLING TO CONTINUE PT. PATIENT IS GOING TO TALK TO HER DAUGHTER THAT IS AN RN TO SEE IF SHE WILL HELP HER. Plan Plan: CONTINUE PT PER ORIG POC WORKING TOWARD SAME GOALS. PATIENT IS AGREEABLE. INCLUDE CAREGIVER (RN DAUGHTER) INSTRUCTION FOR PATIENT SAFETY IN THE GYM. *CHECK AUTH: Approv. 72 units 05/13- 08/17/22 . CHECK CODES approv. [id number]. APPROVED WITH POC*. GAIT TRAINING INCLUDING STEPS. BALANCE TRAINING. ENDURANCE TRAINING AND NATHANIEL LE STRENGTHENING. EMPHASIZE NEED FOR CONTINUED INDEP EX POST PT. Balance/Gait/Functional tests - Balance/Special Test Scores Lower Extremity Functional Score: 42 TUG Test Time Seconds: 17.27 Tug Test: <20 sec.=mostly independent 30 Second Chair Rise Test Seconds: 12 Goals Goal 1:: PATIENT WILL COMPLETE 10 STANDS IN 30 SECS TO DEMONSTRATE IMPROVED FUNCTIONAL STRENGTH Goal Time Frame: 6-8 Weeks Goal Progress: Goal Met Goal 2:: PATIENT WILL COMPLETE TUG IN < 15 SECS TO DEMONSTRATE IMPROVED GAIT STABILITY Goal Time Frame: 6-8 Weeks Goal Progress: Progressing Goal 3:: PATIENT WILL AMBULATE 15 MIN ON LEVEL SURFACES INDEP'LY TO IMPROVE ACTIVITY TOLERANCE Goal Time Frame: 6-8 Weeks Goal Progress: Progressing Goal 4:: PATIENT WILL ASCEND AND DESCEND STEPS WITH ONE HR RECIP INDEP'LY AND SAFELY TO GO TO BASEMENT AT HOME. Goal Time Frame: 6-8 Weeks Goal Progress: Not Progressing Goal 5:: *PATIENT WILL BE INDEP WITH A HEP AND/OR GYM EX PROGRAM FOR CONTINUED IMPROVEMENT ONCE FORMAL PHYSICAL THERAPY CONCLUDES. Goal Time Frame: 6-8 Weeks Goal Progress: Progressing Goal 6:: NEW GOAL: PATIENT WILL COMPLETE 15 STANDS IN 30 SECS TO DEMONSTRATE IMPROVED FUNCTIONAL STRENGTH Anticipated Interventions Patient/Client Instruction: Educate patient on: Condition, Plan of Care, Risk Factors For the Purpose of:: To improve self management Therapeutic Exercise to Include: Strength training, Endurance training, Balance training, Flexibilty training, Gait and locomotor training, Neuromotor development For the Purpose of:: To improve muscle performance and motor function, To increase tolerance to activity/condition/position, To improve ability of physical actions for home/community/work/leisure, To improve gait and locomotor functions Please do not hesitate to contact me at [phone] by phone or if you have questions or concerns regarding this new plan of care! Sincerely, Carolina Guthrie, PT, Cert MDT
--- NOTE | 2022-07-29 11:20 | HP.PTDCSUM ---
It has been my pleasure to treat DOMINIQUE DAVID referred by Dr. Alek Knox MD, with the diagnosis of WEAKNESS for a total of 17 visit(s). Discharge Date: Please see the following information for a summary of their discharge status. Subjective: PATIENT REPORTS SHE PLANS TO USE HER MEMBERSHIP TO DO HER ROUTINE AFTER RE-CHECK TODAY. STATES SHE FEELS SAFE DOING SO. L hip Pain Intensity (Out of 10): 0 R knee Pain Intensity (Out of 10): 0 % Improvement: 60 Objective/Function: PATIENT WAS SEEN TODAY FOR RE-ASSESSMENT OF PROGRESS TOWARD THE SET PT GOALS AND THE NEED FOR FURTHER PHYSICAL THERAPY VS READINESS FOR DISCHARGE. PATIENT HAS MADE GOOD PROGRESS SINCE LAST RE-CHECK AND IS APPROPRIATE FOR DISCHARGE TO INDEP GYM PROGRAM AT THIS TIME. PATIENT IS AGREEABLE. SEE GOALS BELOW. UPON EXAM TODAY. SIGNIFICANT IMPROVEMENTS SEEN IN TUG TEST TIME AND IMPROVEMENT IN 30STS TESTS - SEE BELOW. [ End ] Goal 1:: PATIENT WILL COMPLETE 10 STANDS IN 30 SECS TO DEMONSTRATE IMPROVED FUNCTIONAL STRENGTH Goal Progress: Goal Met Goal 2:: PATIENT WILL COMPLETE TUG IN < 15 SECS TO DEMONSTRATE IMPROVED GAIT STABILITY Goal Progress: Goal Met Goal 3:: PATIENT WILL AMBULATE 15 MIN ON LEVEL SURFACES INDEP'LY TO IMPROVE ACTIVITY TOLERANCE Goal Progress: Goal Met Goal 4:: PATIENT WILL ASCEND AND DESCEND STEPS WITH ONE HR RECIP INDEP'LY AND SAFELY TO GO TO BASEMENT AT HOME. Goal Progress: Not Progressing Goal 5:: *PATIENT WILL BE INDEP WITH A HEP AND/OR GYM EX PROGRAM FOR CONTINUED IMPROVEMENT ONCE FORMAL PHYSICAL THERAPY CONCLUDES. Goal Progress: Goal Met Goal 6:: NEW GOAL: PATIENT WILL COMPLETE 15 STANDS IN 30 SECS TO DEMONSTRATE IMPROVED FUNCTIONAL STRENGTH Goal Progress: Goal Met Plan: D/C TO [facility] EX. PATIENT IS AGREEABLE AND HAS WRITTEN EX LOG. If there are questions or concerns regarding this patient's physical therapy, please feel free to call me at [phone]. Thank you for the referral of this patient. Sincerely, Carolina Guthrie, PT, Cert MDT Balance/Gait/Functional tests - Balance/Special Test Scores Lower Extremity Functional Score: 47 TUG Test Time Seconds: 11.74 Tug Test: <20 sec.=mostly independent 30 Second Chair Rise Test Seconds: 16
== END 2022-07-29 19:00 | disposition home or self-care (01) ==
LOC: PT 11:00
PROVIDERS: PCP Family Medicine Geriatric Medicine; Referring Provider Family Medicine Geriatric Medicine; Visit Provider Family Medicine Geriatric Medicine
DX: R53.1 Weakness (principal)
CPT/HCPCS: 97110; 97162; 97164

== ENCOUNTER → 2023-01-06 | Outpatient (CLI) | payer OTHER, SELFPAY ==
[2021-04-30 14:13] VITALS: BMI 35.0
[2023-01-06 14:55] LABS: Absolute Lymphocyte Count 1.83 X10^3/uL (0.83-4.51); Absolute Neutrophil Count 6.1 X10^3/uL (2.0-7.7); Basophil# 0.05 X10^3/uL; Basophil% 0.6 % (0-1); Eosinophil# 0.13 X10^3/uL; Eosinophils% 1.5 % (0-5); Hemoglobin 12.2 g/dL (12.0-15.0); Lymphocyte # 1.83 X10^3/ul (0.83-4.51); Lymphocyte % 21.1 % (19-41); Mean Corp Hgb Conc 30.5 g/dL (32-36); Mean Corpuscular Hgb 28.7 pg (27.0-32.0); Mean Corpuscular Volume 94.1 fL (81-99); Mean Platelet Vol. 10.9 fl (6.2-12.0); Monocyte# 0.53 X10^3/uL; Monocyte% 6.1 % (0-10); NRBC Flagged by Analyzer 0 % (0-5); Neutrophil % 70.5 % (47-70); Platelet Count 271 K/mm3 (150-450); RBC Distribution Width CV 14.9 % (11.6-14.6); RBC Distribution Width SD 51.8 fl (35.1-43.9); Red Blood Count 4.25 M/mm3 (4.2-5.4); White Blood Count 8.7 K/mm3 (4.4-11.0)
[2023-01-06 15:14] LABS: ALB/GLOB Ratio 1.1 RATIO (0.9-2.4); AST(SGOT) 20 U/L (15-37); Alanine Aminotransfer ALT/SGPT 27 U/L (13-56); Albumin, Serum 3.9 g/dL (3.2-5.0); Alkaline Phosphatase 187 U/L (45-117); Anion Gap 9 (5-15); BUN 24 mg/dL (7-18); BUN/Creat Ratio 19.4 RATIO (10-20); Calcium,Total 8.9 mg/dL (8.5-10.1); Chloride 109 mmol/L (98-107); Cholesterol 142 mg/dL (200); Creatinine, Serum 1.24 mg/dL (0.55-1.02); EST Glomerular Filtration Rate 47 mL/min (>60); Est Glom Filt Rate - Afr Amer 56 mL/min (>60); Globulin 3.5 g/dL (2.2-4.2); Glucose 109 mg/dL (74-106); High Density Lipoprotein 58 mg/dL; Potassium 4.2 mmol/L (3.5-5.1); Protein, Total 7.4 g/dL (6.4-8.2); Sodium Level 140 mmol/L (136-145); Triglycerides 162 mg/dL; Very Low Density Lipoprotein 32 mg/dL (5-40)
== END | disposition home or self-care (01) ==
LOC: POLAB3 14:08
PROVIDERS: PCP Family Medicine Geriatric Medicine; Visit Provider Family Medicine Geriatric Medicine
DX: I10 Essential (primary) hypertension (principal)
CPT/HCPCS: 36415; 80053; 80061; 84443; 85025

== ENCOUNTER 2023-06-19 13:00 | Outpatient (RCR) | payer OTHER, SELFPAY ==
[2021-04-30 14:13] VITALS: BMI 35.0
--- NOTE | 2023-03-04 15:25 | HP.PTEVAL_ITS ---
Patient's Visit Information Visit Information Visit Information: DOMINIQUE DAVID is a 62 year old F referred to Physical Therapy by Dr. 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 Date of Evaluation: 03/03/23 Physical Therapist: Carolina Guthrie, PT, Cert MDT Visit Plan Frequency: 2x /Week Duration: 4-6 Weeks Plan: EVAL ONLY APPROVED. *CHECK AUTH NEXT VISIT: RECORD # OF VISITS APPROVED AND EXPIRATION DATE. CHECK CODES APPROVED WITH POC* GAIT TRAINING INCLUDING STEPS. BALANCE TRAINING. ENDURANCE TRAINING AND NATHANIEL LE STRENGTHENING. PATIENT HAS [employer] MEMBERSHIP - GOAL IS TO SEE IF PATIENT CAN RETURN TO SAFE [facility] GYM EX PROGRAM OR MAYBE WITH HELP OF DAUGHTER. Subjective Subjective: Work/Leisure: UNEMPLOYEED. 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 Disability: NO. Present symptoms: A LOT OF WEAKNESS IN LEFT LEG AND ESPECIALLY LEFT LB/HIP PAIN. I FEEL LIKE IT IS PULLING BACK THERE WHEN I WALK. Present since: NOV 2020 WHEN HAD A HEART ATTACK. 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 PATIENT REPORTS SHE WAS DOING REALLY GOOD AFTER PHYSICAL THERPAY FOR HER STROKE UNTIL SHE HAD HER HEART ATTACK. BROKE L ARM AFTER HEART ATTACK AND THAT WAS ANOTHER SET BACK. Pain Scale: LEFT HIP AND NATHANIEL LEG PAIN IN CALVES - WORST 6/10, LEAST 0/10. Currently: 0/10. Is it getting better, worse or staying the same: WORSENING - BECAUSE I HAVE JUST LET EVERYTHING GO IT IS HARDER FOR ME TO DO SOME THINGS. IT IS HARDER TO WALK WITHOUT MY CANE. I EVEN USE IT A LOT IN THE HOUSE NOW. I FELL AND BRUISED MY FACE IN OCT IN MY HOUSE. Commenced as a result of: HEART ATTACK AND STROKE. Worse: TRYING TO WALK A LOT, TRYING TO WALK UP STAIRS, VACUUMING. Better: LYING DOWN AND SITTING. CANE. Disturbed sleep: NO. Previous history/Previous treatment: CVA MAY 2020, HEART ATTACK NOV 2020. FALL OCT 2021 DUE TO L LE WEAKNESS IN [facility] EMERGENCY DEPT WHEN [employer] SON-IN-LAW THERE AND BROKE LEFT ARM - NO SURGERY. CARDIAC REHAB X 3 MONTHS AFTER HEART ATTACK AND PATIENT REPORTS IT WENT REALLY WELL AND STATES HER LEG WAS GETTING STRONGER BUT STARTED GETTING WEAK AGAIN WHEN STOPPED. GOT STRONGER WITH PHYSICAL THERAPY EARLIER THIS YEAR BUT STATES THAT HER DOG PASSED AT THE END OF JULY 2022 SO SHE STOPPED DOING HER INDEP GYM EX'S AT THAT TIME. SHE REPORTS SHE REALLY HASN'T BEEN EXERCISING SINCE THEN AND SHE HAS GAINED WEIGHT AND HER DAUGHTERS (BOTH RN'S) FEEL SHE NEEDS RE-EVALUATED BEFORE SHE TRIES TO RE-START HER GYM EX'S ON HER OWN. Gait: PATIENT REPORTS SHE IS USING HER CANE ALMOST ALL THE TIME NOW OR A CART IF SHE IS SHOPPING. SHE REPORTS SHE IS EVEN USING THE CANE IN THE HOUSE SOME. FELL IN THE HOUSE OCT 2022 WALKING TO THE KITCHEN - I THINK I CAUGHT MY R FOOT. Bowel or Bladder Dysfunction: SOME UI AT NIGHT TRYING TO MAKE IT TO THE BATHROOM IN TIME. Unexplained weight loss: NO. Imaging: NO RECENT X-RAYS OF BACK OR HIPS PER PATIENT REPORT. PMH/Recent major surgery: HTN. STEPS: 3 STEPS INTO HOUSE WITH ONE HANDRAIL. CAN NOT GO UP WITH LLE SO ONE STEP AT A TIME AND WITH HUSBANDS SUPERVISION. PATIENT REPORTS SHE HAS A BASEMENT BUT CAN'T GO UP AND DOWN THEM. CAN'T REMEMBER THE LAST TIME SHE WENT TO THE BASEMENT - MAYBE 6 MONTHS OR MORE AGO AND WENT WITH HER TO SUPERVISE WHILE SHE WENT ONE STEP AT A TIME WITH ONE HR. Objective Objective: Sitting/Standing Posture: FAIR. NO RELEVANT LATERAL SHIFT. ILIAC CRESTS SYMMETRICAL OR L SLIGHTER HIGHER. Other Observations: INDEP GAIT INTO PT TODAY WITH ST CANE, NO LOB AND SPASTICITY LLE. Sensory deficit: NATHANIEL LE LIGHT TOUCH SENSATION GROSSLY INTACT AND SYMMETRICAL. ROM deficit: NATHANIEL LE'S WFL EXCEPT MILD L HS AND MODERATE GASTROC TIGHTNESS. Motor deficit: R HIP 4/5, KNEE 5/5, ANKLE 4/5. L LE: HIP 4-/5, KNEE 4-/5, ANKLE 3-/5. Reflexes: 3/3 NATHANIEL QUADS AND 2/3 NATHANIEL ACHILLES. Dural Signs: NEGATIVE NATHANIEL LE'S. Lumbar mvmt loss: flex - NIL. ext - MOD. R SG - MOD. L SG - MOD. PATIENT DENIES INCREASED PAIN WITH LUMBAR ROM TESTING ALL PLANES TODAY AND REPORTS THAT IT IS WALKING THAT MAKES HER BACK AND HIP HURT. Core strength: POOR. Palpation: NO ACUTE HIP OR LOW BACK TENDERNESS WITH PALPATION TODAY. OTHER: PATIENT WITH NATHANIEL LE EDEMA L >R. PATIENT REPORTS SHE HAS TALKED TO DR. 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 - Balance/Special Test Scores Lower Extremity Functional Score: 42 TUG Test Time Seconds: 16.[address] CANE 30 Second Chair Rise Test Seconds: 11 Balance/Special Test Scores Lower Extremity Functional Score: 42 Goals Goal 1:: ATIENT WILL COMPLETE 15 STANDS IN 30 SECS TO DEMONSTRATE IMPROVED FUNCTIONAL STRENGTH Goal Time Frame: 4-6 Weeks Goal 2:: PATIENT WILL COMPLETE TUG IN < 10 SECS TO DEMONSTRATE IMPROVED GAIT STABILITY Goal Time Frame: 4-6 Weeks Goal 3:: PATIENT WILL AMBULATE 15 MIN ON LEVEL SURFACES INDEP'LY AND SAFELY WITHOUT AD OR LOB TO IMPROVE ACTIVITY TOLERANCE Goal Time Frame: 4-6 Weeks Goal 4:: PATIENT WILL ASCEND AND DESCEND STEPS WITH ONE HR RECIP INDEP'LY AND SAFELY TO GO TO BASEMENT AT HOME. Goal Time Frame: 4-6 Weeks Goal 5:: PATIENT WILL BE INDEP WITH A HEP AND/OR GYM EX PROGRAM FOR CONTINUED IMPROVEMENT ONCE FORMAL PHYSICAL THERAPY CONCLUDES. Goal Time Frame: 4-6 Weeks Rehabilitation Potential Physical Therapy Diagnosis: THIS PATIENT PRESENTS TO PT WITH HYPOMOBILITY, L LE STIFFNESS AND LLE WEAKNESS. SHE ALSO HAS DECREASED CORE STRENGTH AND WOULD BENEFIT FROM PT TO SEE IF SHE CAN SAFELY RETURN TO [facility] A [facility] AND WELLNESS MEMBER. Rehabilitation Potential: Good Anticipated Interventions Patient/Client Instruction: Educate patient on: Condition, Plan of Care, Risk Factors and Benefits of Fitness Program For the Purpose of:: To improve self management Therapeutic Exercise to Include: Strength training, Endurance training, Balance training, Coordination, Body mechanics, Postural training, Flexibilty training, Gait and locomotor training and Neuromotor development For the Purpose of:: To improve muscle performance and motor function, To improve ability to perform ADL's, To increase tolerance to activity/condition/position, To improve ability of physical actions for home/community/work/leisure and To improve gait and locomotor functions Text: Thank you for the opportunity to evaluate your patient. For Medicare and Medicare HMO plans, please review the plan of care and approve it. It will need to be FAXED BACK to us at [phone] for Medicare purposes. For Medicare only, by signing this I certify the plan of care. Please let me know if there are questions or concerns regarding this plan of care. Physician Signature: Date:
--- NOTE | 2023-04-15 14:26 | HP.PTREVAL_ITS ---
Re-Evaluation Intro: Dr. 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 Please see the progress note below for an update on the physical therapy plan of care! Subjective Subjective: PATIENT REPORTS SHE CAN GO UP STAIRS EASIER BUT HER LEFT LEG STILL FEELS HEAVY. PATIENT REPORTS SHE FEELS A LOT MORE READY TO COME BACK TO EXERCISE IN THE GYM ON HER OWN NOW. DENIES ANY FALLS SINCE THERAPY. PATIENT REPORTS HER GOAL IS STILL TO WALK WITHOUT THE CANE BUT SHE DOESN'T HAVE THE CONFIDENCE YET. STATES SHE IS USING CANE IN HER HOUSE 10% OF THE TIME OR LESS NOW BUT DOESN'T FEEL COMFORTABLE GOING OUT IN PUBLIC WITHOUT IT. STILL GETTING UP TO 6/10 PAIN IN HER BACK AND LEFT HIP WITH GROCERY SHOPPING EVEN USING CART. Objective Objective/Function: PATIENT WAS SEEN TODAY FOR RE-ASSESSMENT OF PROGRESS TOWARD THE SET PT GOALS AND THE NEED FOR FURTHER PHYSICAL THERAPY VS READINESS FOR DISCHARGE. THIS PATIENT IS MAKING GOOD PROGRESS WITH PATIENT AND IS A GOOD CANDIDATE TO CONTINUE. PATIENT IS AGREEABLE. POC WAS DISCUSSED AND SHE AND HER SISTER ARE IN TOTAL AGREEMENT. PATIENT IS BECOMING INDEP WITH A GYM EX PROGRAM BUT COULD BENEFIT FROM FURTHER PT FOR CORE STRENGTHENING, BALANCE AND GAIT TRAINING AND LLE ROM/STRETCHING. UPON EXAM TODAY: THIS PATIENT AMBULATES INDEP'LY INTO PT TODAY WITH ST CANE WITH HER SISTER. SHE IS ABLE TO ASCEND AND DESCEND ONE FLIGHT OF STEPS RECIPROCALLY WITH ONE HR BUT HAS NOT ATTEMPTED STEPS TO HER BASEMENT AT HOME YET. STATES HE PUT UP ANOTHER HR SO THERE ARE 2 HR'S THERE NOW. Motor deficit: R HIP 4+/5, KNEE 5/5, ANKLE 5/5. L LE: HIP 4/5, KNEE 4/5, ANKLE 3+/5. Dural Signs: NEGATIVE NATHANIEL LE'S. Lumbar mvmt loss: flex - NIL. ext - MOD. R SG - MIN. L SG - MOD. PATIENT DENIES INCREASED PAIN WITH LUMBAR ROM TESTING ALL PLANES TODAY AND REPORTS THAT IT IS STILL WALKING THAT MAKES HER BACK AND HIP HURT. ROM DEFICITS: L LE HIP TIGHTNESS ALL PLANES. L LE HS AND CALF TIGHTNESS. Core strength: POOR. Palpation: NO ACUTE HIP OR LOW BACK TENDERNESS WITH PALPATION TODAY. - Balance/Special Test Scores Lower Extremity Functional Score: 42 TUG Test Time Seconds: 11.96 WITHOUT AD 30 Second Chair Rise Test Seconds: 16 - NO UE ASSIST Plan Plan Plan: LLE STICK ROLL OUT, ROM, AND STRETCHING. SKTC AND LTR. GENTLE L ANKLE DORSIFLEX STRETCHING AND CALF STRENGTHEING. CORE STRENGTHEING. BALANCE TRAINING OUTSIDE OF CENTER OF GRAVITY IN [place] BARS TO BUILD CONFIDENCE WITH GAIT WITHOUT AD. PROGRESSION OF GYM PROGRAM AND HEP. Balance/Gait/Functional tests Balance/Special Test Scores Lower Extremity Functional Score: 42 6 Minute Walk Test: 241.4 Goals Goals Goal 1:: ATIENT WILL COMPLETE 15 STANDS IN 30 SECS TO DEMONSTRATE IMPROVED FUNCTIONAL STRENGTH Goal Time Frame: 4-6 Weeks Goal Progress: Goal Met Goal 2:: PATIENT WILL COMPLETE TUG IN < 10 SECS TO DEMONSTRATE IMPROVED GAIT STABILITY Goal Time Frame: 4-6 Weeks Goal Progress: Progressing Goal 3:: PATIENT WILL AMBULATE 15 MIN ON LEVEL SURFACES INDEP'LY AND SAFELY WITHOUT AD OR LOB TO IMPROVE ACTIVITY TOLERANCE Goal Time Frame: 4-6 Weeks Goal Progress: Progressing Goal 4:: PATIENT WILL ASCEND AND DESCEND STEPS WITH ONE HR RECIP INDEP'LY AND SAFELY TO GO TO BASEMENT AT HOME. Goal Time Frame: 4-6 Weeks Goal Progress: Progressing Goal 5:: PATIENT WILL BE INDEP WITH A HEP AND/OR GYM EX PROGRAM FOR CONTINUED IMPROVEMENT ONCE FORMAL PHYSICAL THERAPY CONCLUDES. Goal Time Frame: 4-6 Weeks Goal Progress: Progressing Anticipated Interventions Anticipated Interventions Patient/Client Instruction: Educate patient on: Condition, Plan of Care, Risk Factors and Benefits of Fitness Program For the Purpose of:: To improve self management Therapeutic Exercise to Include: Strength training, Endurance training, Balance training, Coordination, Body mechanics, Postural training, Flexibilty training, Gait and locomotor training and Neuromotor development For the Purpose of:: To improve muscle performance and motor function, To impr ove ability to perform ADL's, To increase tolerance to activity/condition/position, To improve ability of physical actions for home/community/work/leisure and To improve gait and locomotor functions Re-Evaluation Ending Re-evaluation ending: Please do not hesitate to contact me at [phone] by phone or if you have questions or concerns regarding this new plan of care! Sincerely, Carolina Guthrie, PT, Cert MDT
--- NOTE | 2023-05-13 14:20 | HP.PTREVAL ---
Re-Evaluation Intro: Dr. Alek Knox MD, It has been my pleasure to treat DOMINIQUE DAVID over the last 17 visits for HEMIPLEGIA AFFECTING L SIDE IN L SIDE DOMINANT PATIENT. Please see the progress note below for an update on the physical therapy plan of care! Subjective Subjective: I FEEL LIKE I CAN STAND ON MY L FOOT LONGER NOW THAT I HAVE BEEN WORKING ON IT MORE. I FEEL LIKE WHEN SHE DOES THAT ON MY HIP IT HELPS A LOT AND THE TIGHTNESS ISN'T COMING BACK FAST. PATIENT IS REPORTING UP TO 5/10 L LOW BACK/HIP PAIN WITH PROLONGED WALKING STATING SHE ISN'T SCREAMING WITH PAIN ANYMORE. NO FALLS SINCE STARTING PT. NOT USING CANE IN THE HOUSE FOR THE PAST WEEK. ALWAYS TAKES CANE WITH HER WHEN OUT OF THE HOUSE BUT DOESN'T ALWAYS USE IT NOW. STATES SHE WISHES SHE COULD GET BACK TO WHERE SHE WAS BEFORE HER SET BACK. Objective Objective/Function: PATIENT WAS SEEN TODAY FOR RE-ASSESSMENT OF PROGRESS TOWARD THE SET PT GOALS AND THE NEED FOR FURTHER PHYSICAL THERAPY VS READINESS FOR DISCHARGE. THIS PATIENT IS STILL MAKING GOOD PROGRESS WITH PATIENT AND IS A GOOD CANDIDATE TO CONTINUE. PATIENT IS AGREEABLE. PATIENT IS BECOMING INDEP WITH A GYM EX PROGRAM BUT COULD BENEFIT FROM FURTHER PT FOR CORE STRENGTHENING, BALANCE AND GAIT TRAINING AND LLE ROM/STRETCHING. UPON EXAM TODAY: THIS PATIENT AMBULATES INDEP'LY INTO PT TODAY WITH ST CANE WITH DEPENDENCE ON HER CANE AND A MORE SMOOTH GAIT PATTERN. STEPS NT TODAY. Motor deficit: R HIP 5/5, KNEE 5/5, ANKLE 5/5. L LE: HIP 4+/5, KNEE 4/5, ANKLE 4-/5. Dural Signs: NEGATIVE NATHANIEL LE'S. Lumbar mvmt loss: flex - NIL. ext - MOD. R SG - MIN. L SG - MOD. PATIENT DENIES INCREASED PAIN WITH LUMBAR ROM TESTING ALL PLANES TODAY AND REPORTS THAT IT IS PROLONGED WALKING THAT MAKES HER L BACK/HIP HURT. ROM DEFICITS: L LE HIP TIGHTNESS ALL PLANES. L LE HS AND CALF TIGHTNESS. Core strength: FAIR. Palpation: NO ACUTE HIP OR LOW BACK TENDERNESS WITH PALPATION TODAY. - Balance/Special Test Scores Lower Extremity Functional Score: 48 TUG Test Time Seconds: 10.31 WITHOUT AD 30 Second Chair Rise Test Seconds: 16 - NO UE ASSIST SLS TEST: PATIENT IS NOW ABLE TO SLS ON THE R LE X 5 SEC AND L LE X 2 SEC WITHOUT UE ASSIST. Plan Plan Plan: CONTINUE PT 2X'S A WK X 10 VISITS: LLE STICK ROLL OUT, ROM, AND STRETCHING. SKTC AND LTR. GENTLE L ANKLE DORSIFLEX STRETCHING AND CALF STRENGTHEING. CORE STRENGTHEING. BALANCE TRAINING OUTSIDE OF CENTER OF GRAVITY IN [place] B[place] TO BUILD CONFIDENCE WITH GAIT WITHOUT AD. PROGRESSION OF GYM PROGRAM AND HEP. Balance/Gait/Functional tests Balance/Special Test Scores Lower Extremity Functional Score: 48 6 Minute Walk Test: 241.4 Goals Goals Goal 1:: ATIENT WILL COMPLETE 15 STANDS IN 30 SECS TO DEMONSTRATE IMPROVED FUNCTIONAL STRENGTH Goal Time Frame: 4-6 Weeks Goal Progress: Goal Met Goal 2:: PATIENT WILL COMPLETE TUG IN < 10 SECS TO DEMONSTRATE IMPROVED GAIT STABILITY Goal Time Frame: 4-6 Weeks Goal Progress: Progressing Goal 3:: PATIENT WILL AMBULATE 15 MIN ON LEVEL SURFACES INDEP'LY AND SAFELY WITHOUT AD OR LOB TO IMPROVE ACTIVITY TOLERANCE Goal Time Frame: 4-6 Weeks Goal Progress: Progressing Goal 4:: PATIENT WILL ASCEND AND DESCEND STEPS WITH ONE HR RECIP INDEP'LY AND SAFELY TO GO TO BASEMENT AT HOME. Goal Time Frame: 4-6 Weeks Goal Progress: Progressing Goal 5:: PATIENT WILL BE INDEP WITH A HEP AND/OR GYM EX PROGRAM FOR CONTINUED IMPROVEMENT ONCE FORMAL PHYSICAL THERAPY CONCLUDES. Goal Time Frame: 4-6 Weeks Goal Progress: Progressing Anticipated Interventions Anticipated Interventions Patient/Client Instruction: Educate patient on: Condition, Plan of Care, Risk Factors and Benefits of Fitness Program For the Purpose of:: To improve self management Therapeutic Exercise to Include: Strength training, Endurance training, Balance training, Coordination, Body mechanics, Postural training, Flexibilty training, Gait and locomotor training and Neuromotor development For the Purpose of:: To improve muscle performance and motor function, To improve ability to perform ADL's, To increase tolerance to activity/condition/position, To improve ability of physical actions for home/community/work/leisure and To improve gait and locomotor functions Re-Evaluation Ending Re-evaluation ending: Please do not hesitate to contact me at [phone] by phone or if you have questions or concerns regarding this new plan of care! Sincerely, Carolina Guthrie, PT, Cert MDT
--- NOTE | 2023-06-19 13:34 | HP.PTDCSUM_ITS ---
Discharge Summary D/C summary: It has been my pleasure to treat DOMINIQUE DAVID referred by Dr. 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 Discharge Date: 06/19/23 Please see the following information for a summary of their discharge status. Subjective Subjective: PATIENT REPORTS SHE CAN MOP BETTER, VACUUM BETTER. 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 SHE STATES SHE STILL STRUGGLES WITH THINGS THAT ARE HEAVY AND THROUGH HER BALANCE OFF OR INVOLVE SQUATTING. PATIENT REPORTS SHE IS DOING HER TREADMILL AT HOME AND IT FEELS FINE GOING SLOW. SHE STATES SHE IS READY TO CONTINUE WITH HER EX'S ON HER OWN HERE AT [email or web address] LIKE SHE DID THE LAST TIME. Pain L hip: Pain Intensity (Out of 10): 0 Overall Improvement % Improvement: 50 Objective Objective/Function: PATIENT WAS SEEN TODAY FOR RE-ASSESSMENT OF PROGRESS TOWARD THE SET PT GOALS AND THE NEED FOR FURTHER PHYSICAL THERAPY VS READINESS FOR DISCHARGE. PATIENT IS NOW INDEP WITH A GYM EX PROGRAM AND APPROPRIATE FOR AND AGREEABLE TO DISCHARGE. UPON EXAM TODAY: THIS PATIENT AMBULATES INDEP'LY INTO PT TODAY WITH ST CANE BUT SHE IS NOT DEPENDENT ON IT AND WALKS OUT JUST CARRYING IT. SHE NOW WALKS WITH A MUCH MORE SMOOTH GAIT PATTERN. NO LOB. INDEP GAIT UP AND DOWN STEPS RECIP WITH ONE HR. Motor deficit: R HIP 5/5, KNEE 5/5, ANKLE 5/5. L LE: HIP 4+/5, KNEE 4/5, ANKL E 4-/5. Dural Signs: NEGATIVE NATHANIEL LE'S. Lumbar mvmt loss: flex - NIL. ext - MOD. R SG - MIN. L SG - MOD. PATIENT DENIES INCREASED PAIN WITH LUMBAR ROM TESTING ALL PLANES TODAY AND REPORTS THAT IT IS STILL PROLONGED WALKING THAT MAKES HER L BACK/HIP HURT. ROM DEFICITS: L LE HIP TIGHTNESS ALL PLANES. L LE QUAD, HS AND CALF TIGHTNESS. Core strength: FAIR. Palpation: NO ACUTE HIP OR LOW BACK TENDERNESS WITH PALPATION TODAY. - Balance/Special Test Scores Lower Extremity Functional Score: 48 TUG Test Time Seconds: 9.92 SEC WITHOUT AD 30 Second Chair Rise Test Seconds: 16 - NO UE ASSIST SLS TEST: PATIENT IS NOW ABLE TO SLS ON THE R LE X 12 SEC AND L LE X 7 SEC WITHOUT UE ASSIST. Goals Goal 1:: ATIENT WILL COMPLETE 15 STANDS IN 30 SECS TO DEMONSTRATE IMPROVED FUNCTIONAL STRENGTH Goal Progress: Goal Met Goal 2:: PATIENT WILL COMPLETE TUG IN < 10 SECS TO DEMONSTRATE IMPROVED GAIT STABILITY Goal Progress: Goal Met Goal 3:: PATIENT WILL AMBULATE 15 MIN ON LEVEL SURFACES INDEP'LY AND SAFELY WITHOUT AD OR LOB TO IMPROVE ACTIVITY TOLERANCE Goal Progress: Goal Met Goal 4:: PATIENT WILL ASCEND AND DESCEND STEPS WITH ONE HR RECIP INDEP'LY AND SAFELY TO GO TO BASEMENT AT HOME. Goal Progress: Goal Met Goal 5:: PATIENT WILL BE INDEP WITH A HEP AND/OR GYM EX PROGRAM FOR CONTINUED IMPROVEMENT ONCE FORMAL PHYSICAL THERAPY CONCLUDES. Goal Progress: Goal Met Plan Plan: D/C D/C Information d/c sentence: If there are questions or concerns regarding this patient's physical therapy, please feel free to call me at [phone]. Thank you for the referral of this patient. Sincerely, Carolina Guthrie, PT, Cert MDT Balance/Gait/Functional tests Balance/Special Test Scores Lower Extremity Functional Score: 48 6 Minute Walk Test: 241.4 Improvement % Improvement: 50
== END 2023-06-19 19:00 | disposition home or self-care (01) ==
LOC: PT 13:00
PROVIDERS: PCP Family Medicine Geriatric Medicine; Referring Provider Family Medicine Geriatric Medicine; Visit Provider Family Medicine Geriatric Medicine
DX: I69.952 Hemiplegia and hemiparesis following unspecified cerebrovascular disease affecting left dominant side (principal)
CPT/HCPCS: 97110; 97162; 97164

== ENCOUNTER → 2023-07-16 | Outpatient (CLI) | payer OTHER, SELFPAY ==
[2021-04-30 14:13] VITALS: BMI 35.0
[2023-07-16 17:02] LABS: Absolute Lymphocyte Count 1.93 X10^3/uL (0.83-4.51); Absolute Neutrophil Count 7.4 X10^3/uL (2.0-7.7); Basophil# 0.05 X10^3/uL; Basophil% 0.5 % (0-1); Eosinophil# 0.19 X10^3/uL; Eosinophils% 1.9 % (0-5); Hematocrit 41.6 % (37-47); Hemoglobin 13.1 g/dL (12.0-15.0); Lymphocyte # 1.93 X10^3/ul (0.83-4.51); Lymphocyte % 19.2 % (19-41); Mean Corp Hgb Conc 31.5 g/dL (32-36); Mean Corpuscular Hgb 28.9 pg (27.0-32.0); Mean Corpuscular Volume 91.8 fL (81-99); Monocyte# 0.45 X10^3/uL; Monocyte% 4.5 % (0-10); NRBC Flagged by Analyzer 0 % (0-5); Neutrophil # 7.38 X10^3/uL (2.7-7.7); Neutrophil % 73.6 % (47-70); Platelet Count 292 K/mm3 (150-450); RBC Distribution Width CV 14.2 % (11.6-14.6); RBC Distribution Width SD 48.3 fl (35.1-43.9); Red Blood Count 4.53 M/mm3 (4.2-5.4)
[2023-07-16 17:39] LABS: ALB/GLOB Ratio 1.1 RATIO (0.9-2.4); AST(SGOT) 20 U/L (15-37); Alanine Aminotransfer ALT/SGPT 25 U/L (13-56); Albumin, Serum 3.9 g/dL (3.2-5.0); Alkaline Phosphatase 192 U/L (45-117); Anion Gap 7 (5-15); BUN 19 mg/dL (7-18); BUN/Creat Ratio 14.7 RATIO (10-20); Calcium,Total 9.9 mg/dL (8.5-10.1); Chloride 105 mmol/L (98-107); Cholesterol 145 mg/dL (200); Creatinine, Serum 1.29 mg/dL (0.55-1.02); EST Glomerular Filtration Rate 44 mL/min (>60); Est Glom Filt Rate - Afr Amer 54 mL/min (>60); Globulin 3.7 g/dL (2.2-4.2); Glucose 113 mg/dL (74-106); High Density Lipoprotein 60 mg/dL; Potassium 4.1 mmol/L (3.5-5.1); Protein, Total 7.6 g/dL (6.4-8.2); Sodium Level 136 mmol/L (136-145); Thyroid Stim Hormone (TSH) 4.28 uIU/mL (0.358-3.74); Triglycerides 159 mg/dL; Very Low Density Lipoprotein 32 mg/dL (5-40)
== END | disposition home or self-care (01) ==
LOC: LAB 16:33
PROVIDERS: PCP Family Medicine Geriatric Medicine; Referring Provider Family Medicine Geriatric Medicine; Visit Provider Family Medicine Geriatric Medicine
DX: I10 Essential (primary) hypertension (principal); E78.5 Hyperlipidemia, unspecified
CPT/HCPCS: 36415; 80053; 80061; 84443; 85025

== ENCOUNTER → 2023-10-22 | Outpatient (CLI) | payer OTHER, SELFPAY ==
[2021-04-30 14:13] VITALS: BMI 35.0
--- NOTE | 2023-10-22 13:06 | STRESSREP ---
Stress Test Report Pharmacologic myocardial perfusion stress test. 63-year-old lady with a history of coronary artery disease Resting EKG demonstrates sinus rhythm with a rate of 78 bpm. Resting blood pressure is 140/88 mmHg. 0.4 mg of regadenoson was infused per usual protocol followed by rapid intravenous saline flush injection. Continuous EKG monitoring was performed. The maximum heart rate was 92 bpm which was 58% of max impacted heart rate the maximum workload was 1 metabolic equivalent. At rest there were no ST or T wave changes noted to suggest ischemia and at peak infusion nonspecific ST changes were noted which did not meet the criteria for ischemia. No clinical angina is noted. The final blood pressure was 118/72 mmHg. Myocardial perfusion protocol. 14.7 mCi of technetium 99m sestamibi was injected at rest. 0.4 mg of regadenoson was infused per usual protocol. At peak infusion 44.8 mCi of technetium 99m sestamibi was injected stress images were obtained stress and rest images were reconstructed and compared in the short axis vertical long and horizontal long axis. Gated images were also obtained. Perfusion SPECT analysis: Review of the stress images demonstrate normal uptake of tracer noted in all areas of the myocardium. The resting images similar demonstrated normal uptake of tracer noted in all areas of the myocardium. No areas of reversibility are noted to suggest ischemia and no previous infarct is noted. Gated SPECT analysis: The gated ejection fraction is 69%. Conclusion: Normal pharmacologic myocardial perfusion stress test. Preserved ejection fraction.
== END | disposition home or self-care (01) ==
LOC: CVS 06:37
PROVIDERS: PCP Family Medicine Geriatric Medicine; Referring Provider Internal Medicine Cardiovascular Disease; Visit Provider Internal Medicine Cardiovascular Disease
DX: I25.10 Atherosclerotic heart disease of native coronary artery without angina pectoris (principal); Z95.5 Presence of coronary angioplasty implant and graft
CPT/HCPCS: 78452; 93017; A9500; A4216; J2785

== ENCOUNTER → 2024-01-12 | Outpatient (CLI) | payer OTHER, SELFPAY ==
[2021-04-30 14:13] VITALS: BMI 35.0
[2024-01-12 14:11] LABS: Absolute Lymphocyte Count 2.67 X10^3/uL (0.83-4.51); Absolute Neutrophil Count 8.2 X10^3/uL (2.0-7.7); Basophil# 0.07 X10^3/uL; Basophil% 0.6 % (0-1); Eosinophil# 0.22 X10^3/uL; Eosinophils% 1.9 % (0-5); Hematocrit 41.6 % (37-47); Lymphocyte # 2.67 X10^3/ul (0.83-4.51); Lymphocyte % 22.6 % (19-41); Mean Corp Hgb Conc 31.3 g/dL (32-36); Mean Corpuscular Hgb 29.2 pg (27.0-32.0); Mean Corpuscular Volume 93.5 fL (81-99); Mean Platelet Vol. 10.3 fl (6.2-12.0); Monocyte# 0.56 X10^3/uL; Monocyte% 4.7 % (0-10); NRBC Flagged by Analyzer 0 % (0-5); Neutrophil # 8.23 X10^3/uL (2.7-7.7); Neutrophil % 69.7 % (47-70); Platelet Count 332 K/mm3 (150-450); RBC Distribution Width CV 14.2 % (11.6-14.6); RBC Distribution Width SD 48.7 fl (35.1-43.9); Red Blood Count 4.45 M/mm3 (4.2-5.4); White Blood Count 11.8 K/mm3 (4.4-11.0)
[2024-01-12 14:44] LABS: AST(SGOT) 19 U/L (15-37); Alanine Aminotransfer ALT/SGPT 23 U/L (13-56); Albumin, Serum 3.8 g/dL (3.2-5.0); Alkaline Phosphatase 224 U/L (45-117); Anion Gap 8 (5-15); BUN 23 mg/dL (7-18); BUN/Creat Ratio 17.6 RATIO (10-20); Calcium,Total 9.3 mg/dL (8.5-10.1); Chloride 108 mmol/L (98-107); Cholesterol 171 mg/dL (200); Creatinine, Serum 1.31 mg/dL (0.55-1.02); EST Glomerular Filtration Rate 44 mL/min (>60); Est Glom Filt Rate - Afr Amer 53 mL/min (>60); Globulin 3.9 g/dL (2.2-4.2); Glucose 112 mg/dL (74-106); High Density Lipoprotein 62 mg/dL; Potassium 3.6 mmol/L (3.5-5.1); Protein, Total 7.7 g/dL (6.4-8.2); Sodium Level 138 mmol/L (136-145); Triglycerides 173 mg/dL; Very Low Density Lipoprotein 35 mg/dL (5-40)
== END | disposition home or self-care (01) ==
LOC: POLAB3 13:56
PROVIDERS: PCP Family Medicine Geriatric Medicine; Visit Provider Family Medicine Geriatric Medicine
DX: I10 Essential (primary) hypertension (principal); E78.5 Hyperlipidemia, unspecified
CPT/HCPCS: 36415; 80053; 80061; 84443; 85025

== ENCOUNTER → 2024-09-20 | Outpatient (CLI) | payer OTHER, SELFPAY ==
[2021-04-30 14:13] VITALS: BMI 35.0
--- NOTE | 2024-09-20 13:51 | RAD_ITS ---
PROCEDURE: KNEE 4 OR MORE VIEWS 09/20/2024 REASON FOR EXAM: KNEE PAIN TECHNIQUE: KNEE 4 OR MORE VIEWS COMPARISON: None. FINDINGS: Genu varum deformity. Moderate tricompartmental changes of degenerative joint disease, more prominent in the medial tibiofemoral compartment. Mild osteopenia of the visualized bones. Enthesophyte formation at the upper pole of the patella. No fracture or dislocation is seen. No lytic or blastic bone lesion is noted. Calcified atheromatous plaques are noted. RAD/Knee 4 or More Views IMPRESSION: Degenerative joint disease. Enthesophyte formation at the upper pole of the patella. Reading Location: [facility]
--- NOTE | 2024-09-20 13:51 | RAD_ITS ---
PROCEDURE: CERV SPINE 2 OR 3 VIEWS 09/20/2024 REASON FOR EXAM: NECK PAIN TECHNIQUE: CERV SPINE 2 OR 3 VIEWS COMPARISON: 11/20/2020. FINDINGS: Grade 1 anterolisthesis of C4 on C5. Straightening of the cervical lordosis, probably muscular spasm and pain. There are diffuse spondylotic changes. Findings are demonstrated to by diffuse disc space narrowing, osteophyte formation and degenerative endplate sclerosis. There is diffuse facet joint arthropathy with secondary bilateral neural foramina narrowing. No fracture or dislocation is seen. No aggressive lytic or blastic bony lesion is noted. RAD/Cerv Spine 2 or 3 Views IMPRESSION: Spondylosis. Findings are more prominent at C6-C7. Straightening of the cervical lordosis, probably muscular spasm and pain. Reading Location[facility]
== END | disposition home or self-care (01) ==
LOC: RAD 13:49
PROVIDERS: PCP Family Medicine Geriatric Medicine; Referring Provider Family Medicine Geriatric Medicine; Visit Provider Family Medicine Geriatric Medicine
DX: M54.2 Cervicalgia (principal); M25.562 Pain in left knee
CPT/HCPCS: 72040; 73564

== ENCOUNTER 2024-10-29 15:00 | Outpatient (RCR) | payer OTHER, SELFPAY ==
[2021-04-30 14:13] VITALS: BMI 35.0
--- NOTE | 2024-09-28 14:32 | HP.PTEVAL_ITS ---
Patient's Visit Information Visit Information Visit Information: DOMINIQUE DAVID is a 64 year old F referred to Physical Therapy by Dr. Alek Knox MD with a diagnosis of NECK PAIN AND LEFT KNEE PAIN. Date of Evaluation: 09/28/24 Physical Therapist: Karan Boyd, PT, Cert MDT, OCS Visit Plan Frequency: 2x /Week Duration: 4 Weeks Plan: PT INTERVENTIONS CERVICAL ROM ( avoid left) ,POSTURAL EX'S , MANUAL THERAPY (STM ,CERVICAL TRACTION) , US ,AROM KNEE ,STRENGTHENING QUADS/HAMS/HIP AND FUNCTIONAL STRENGTHENING Subjective Subjective: This 64 y/o female presents to physical therapy for cervical pain and left knee. Patient cervical pain is worse than knee. Patient has had left cervical pain for several years. Located left neck to UT to shoulder. Seen Dr recommended PT ,muscle relaxers and pain management ,x-rays showed Spondylosis.Findings are more prominent at C6-C7.Aggravating factors turning to left ,flexion ,posture. Alleviating factors rest. Occasional tingling in left hand. Denies DELANEY/tinnitus/dizziness. Pain affects sleeping. Patient has no trauma ,although fell on left shoulder sustained fx. No treatment for neck . Knee pain located medial aspect. Aggravating factors walking ,twisting ,in AM. Unable to squat or kneel weakness. Some difficulty with steps. Ambulates with cane due to balance and CVA. Did x-rays Genu varum deformity. Moderate tricompartmental changes of degenerative joint disease, more prominent in the medial tibiofemoral compartment. Enthesophyte formation at the upper pole of the patella. Patient h as referral for orthopedic consult Patient condition affects QOL and function. SOCIAL: Pain Left Neck: Pain Intensity (Out of 10): 5 Pain Intensity Range: 8 and 10 Left Knee: Pain Intensity (Out of 10): 0 Pain Intensity Range: 6 Objective Objective: POSTURE: mild forward posture PALAPTION: tender UT /paraspinals left NEURO: denies paresthesia/tingling ,reflexes C5-6-7 1/3 AROM: shoulder flexion/abduction 150 degrees CERVICAL ROM: flexion min loss ,extension mod loss ,rotation min loss right ,left mod loss ,lateral flexion right min loss ,left mod loss MMT: grossly 4/5 ,except shoulders 4-/5 GAIT: reciprocal pattern with 2 point gait slow yenny slight decrease stance time left PALPATION: medial joint line tenderness AROM: supine left knee flexion 0-115 degrees MMT: ( peak force) left quads 22.1 ,hamstrings 17.2 ,hip flexions 6.8 ,hip abd 0 ,ankle 4/5 STAIRS: one step with rail and cane Special Tests C/S Radiculapathy - Left Upper limb tension test: Negative C/S Radiculapathy - Right Upper limb tension test: Negative C/S Radiculapathy - Left Spurlings: Positive C/S Radiculapathy - Right Spurlings: Negative C/S Radiculapathy - Left Cervical distraction: Negative C/S Radiculapathy - Right Cervical distraction: Negative C/S Radiculapathy - Left Relief test: Negative C/S Radiculapathy - Right Relief test: Negative Sharp Royer: Negative Vertebral Artery Test: Negative Alar Ligament Test: Negative L Knee Valgus - MCL: Negative L Knee Varus - LCL: Negative Balance/Special Test Scores Oswestry Neck Score: 23 Goals Goal 1:: Patient to be I with HEP for knee and neck Goal Time Frame: 4-6 Weeks Goal 2:: Patient to improve cervical ROM to left for function of recovery for driving Goal Time Frame: 4-6 Weeks Goal 3:: Patient to improve knee ROM flexion by 5-10 degrees to improve stairs Goal Time Frame: 4-6 Weeks Goal 4:: Patient to improve peak force quads/hams/hip by 5-10 # to improve gait and stairs Goal Time Frame: 4-6 Weeks Goal 5:: Patient to improve neck oswestry score by 5 points to improve QOL and function Goal Time Frame: 4-6 Weeks Goal 6:: Patient able to improve by 50% with improve gait with increase distance Goal Time Frame: 4-6 Weeks Rehabilitation Potential Physical Therapy Diagnosis: Patient has left neck pain with lateral stenosis with pain worse to left and left knee pain due to DJD > medial aspect with decrease ROM ,weakness left leg impairs walking /standing thus benefit from skilled PT Rehabilitation Potential: Fair Anticipated Interventions Patient/Client Instruction: Educate patient on: Condition and Plan of Care For the Purpose of:: To decrease pain, To increase ROM, To improve muscle performance and motor function, To improve ability to perform ADL's, To increase tolerance to activity/condition/position, To improve ability of physical actions for home/community/work/leisure, To improve gait and locomotor functions, To improve health of tissue, To decrease soft tissue restriction, To increase flexibility/ROM and To improve tolerance to ADL's Therapeutic Exercise to Include: Strength training, Postural training, Flexibilty training, Active ROM and Scapular Strength/Stabilization Comment: QUADS/HAMS/HIP For the Purpose of:: To decrease pain, To increase ROM, To improve muscle performance and motor function, To increase tolerance to activity/condition/position, To improve ability of physical actions for home/community/work/leisure, To improve health of tissue, To decrease soft tissue restriction, To increase flexibility/ROM and To improve tolerance to ADL's Manual Therapy Techniques to Include: Mobilization and Soft tissue mobilization Comment: CERVICAL TARCTION For the Purpose of:: To decrease pain, To increase ROM, To improve nutrient delivery to tissue, To increase oxygenation perfusion, To improve health of tissue and To decrease soft tissue restriction TENS: Yes IF ES: Yes Cryotherapy (ice pack, ice massage): Yes Thermo therapy (hot pack): Yes Ultrasound (thermal/non thermal): Yes For the Purpose of:: To decrease pain, To increase ROM, To improve nutrient delivery to tissue, To increase oxygenation perfusion, To improve health of tissue, To decrease soft tissue restriction and To increase flexibility/ROM Text: Thank you for the opportunity to evaluate your patient. For Medicare and Medicare HMO plans, please review the plan of care and approve it. It will need to be FAXED BACK to us at [phone] for Medicare purposes. For Medicare only, by signing this I certify the plan of care. Please let me know if there are questions or concerns regarding this plan of care. Physician Signature: Date:
--- NOTE | 2024-10-29 15:36 | HP.PTDCSUM ---
Discharge Summary D/C summary: It has been my pleasure to treat DOMINIQUE DAVID referred by Dr. Alek Knox MD, with the diagnosis of NECK PAIN AND LEFT KNEE PAIN for a total of 7 visit(s). Discharge Date: 10/29/24 Please see the following information for a summary of their discharge status. Subjective Subjective: Pain in neck next day was worse -Pain worse with neck worse turning, -driving to left -occasionally left hand -plan to see pain Management Knee is doing better , Pain Left Neck: Pain Intensity (Out of 10): 2 Left Knee: Pain Intensity (Out of 10): 0 L UE: Pain Intensity (Out of 10): 0 Overall Improvement % Improvement: 30 Objective Objective/Function: POSTURE: mild forward posture PALAPTION: tender UT /paraspinals left NEURO: denies paresthesia/tingling ,reflexes C5-6-7 1/3 AROM: shoulder flexion/abduction 150 degrees CERVICAL ROM: flexion min loss ,extension mIN loss ,rotation min loss right ,left mod loss ,lateral flexion right min loss ,left mod loss MMT: grossly 4/5 ,except shoulders 4-/5 GAIT: reciprocal pattern with 2 point gait PALPATION: medial joint line tenderness AROM: supine left knee flexion 0-115 degrees MMT: ( peak force) left quads 29.1 ,hamstrings 27.2 ,hip flexions 6.9 ,hip abd 8.0 ,ankle 4/5 Goals Goal 1:: Patient to be I with HEP for knee and neck Goal Progress: Progressing Goal 2:: Patient to improve cervical ROM to left for function of recovery for driving Goal Progress: Progressing Goal 3:: Patient to improve knee ROM flexion by 5-10 degrees to improve stairs Goal Progress: Progressing Goal 4:: Patient to improve peak force quads/hams/hip by 5-10 # to improve gait and stairs Goal 5:: Patient to improve neck oswestry score by 5 points to improve QOL and function Goal Progress: Progressing Goal 6:: Patient able to improve by 50% with improve gait with increase distance Goal Progress: Progressing Plan Plan: D/C D/C Information Discharge Comments: PAIN MANAGEMENT d/c sentence: If there are questions or concerns regarding this patient's physical therapy, please feel free to call me at [phone]. Thank you for the referral of this patient. Sincerely, Karan Boyd, PT, Cert MDT, OCS Balance/Gait/Functional tests Balance/Special Test Scores Oswestry Neck Score: 23 Improvement % Improvement: 30
== END 2024-10-29 19:00 | disposition home or self-care (01) ==
LOC: PT 15:00
PROVIDERS: PCP Family Medicine Geriatric Medicine; Referring Provider Family Medicine Geriatric Medicine; Visit Provider Family Medicine Geriatric Medicine
DX: M25.562 Pain in left knee (principal)
CPT/HCPCS: 97035; 97110; 97140; 97162; 97530

== ENCOUNTER → 2024-11-23 | Outpatient (CLI) | payer OTHER, SELFPAY ==
[2021-04-30 14:13] VITALS: BMI 35.0
== END | disposition home or self-care (01) ==
PROVIDERS: PCP Family Medicine Geriatric Medicine; Visit Provider Family Medicine Geriatric Medicine
DX: E03.9 Hypothyroidism, unspecified (principal)
CPT/HCPCS: 36415; 84443

== ENCOUNTER → 2025-01-25 | Outpatient (CLI) | payer OTHER, SELFPAY ==
[2021-04-30 14:13] VITALS: BMI 35.0
== END | disposition home or self-care (01) ==
LOC: POLAB3 16:17
PROVIDERS: PCP Family Medicine Geriatric Medicine; Visit Provider Family Medicine Geriatric Medicine
DX: E03.9 Hypothyroidism, unspecified (principal)
CPT/HCPCS: 36415; 84443